=== PATIENT | female | born 1950 | race Caucasian/White ===

== ENCOUNTER → 2017-01-22 | Outpatient (CLI) | payer MEDICARE ==
[2017-01-22 11:38] LABS: BASO % 0.6 % (0.0-1.0); EOS # 0.1 K/mm3 (0.0-0.50); EOS % 2.9 % (0.0-3.0); LARGE UNSTAINED CELL # 0.1 K/mm3 (0.0-0.4); LARGE UNSTAINED CELL % 3.4 % (0.0-4.0); LYMPH # 1.3 K/mm3 (1.5-4.5); LYMPH % 28.1 % (24.0-44.0); MEAN CORPUSCULAR HEMOGLOBIN 29.7 pg (27.0-33.0); MEAN CORPUSCULAR HGB CONC 32.9 g/dl (32.0-36.5); MEAN CORPUSCULAR VOLUME 90.1 fl (80.0-96.0); MONO # 0.2 K/mm3 (0.0-0.8); MONO % 5.6 % (0.0-5.0); NEUTROPHILS # 2.4 K/mm3 (1.8-7.7); NEUTROPHILS % 59.5 % (36.0-66.0); PLATELET COUNT, AUTOMATED 204 k/mm3 (150-450); RED CELL DISTRIBUTION WIDTH 13.1 % (11.5-14.5); WHITE BLOOD COUNT 4.1 K/mm3 (4.0-10.0)
[2017-01-22 12:11] LABS: ALBUMIN/GLOBULIN RATIO 1.25 (1.00-1.93); BILIRUBIN,TOTAL 0.4 MG/DL (0.2-1.0); CALCIUM LEVEL 8.9 MG/DL (8.8-10.2); CREATININE FOR GFR 1.02 MG/DL (0.55-1.02); FREE T4 0.96 NG/DL (0.76-1.46); GLOMERULAR FILTRATION RATE 57.9 (>45); POTASSIUM SERUM 4.8 MEQ/L (3.5-5.1); TOTAL PROTEIN 7.2 GM/DL (6.4-8.2)
== END ==
LOC: M WUC 09:04
PROVIDERS: ATTEND Family Medicine
DX: E03.9 Hypothyroidism, unspecified (principal); E78.5 Hyperlipidemia, unspecified; N18.3 Chronic kidney disease, stage 3 (moderate); D64.9 Anemia, unspecified

== ENCOUNTER → 2017-02-19 | Outpatient (CLI) | payer MEDICARE ==
--- NOTE | 2017-02-19 14:15 | REPMRS ---
Patient History The patient states she had a clinical breast exam in 02/2017. Patient is postmenopausal. Family history of breast cancer in maternal aunt at age 50 or over, ovarian cancer in paternal aunt at age 50 or over, and ovarian cancer in maternal grandmother. Took estrogen for 27 years 6 months. Digital Woman Screen Mammo: February 19, 2017 - Exam #: [id number] Bilateral CC and MLO view(s) were taken. Technologist: Berta Keita, Technologist Prior study comparison: February 17, 2016, digital woman screen mammo performed at [facility]. February 15, 2015, digital woman screen mammo performed at [facility]. February 15, 2014, digital woman screen mammo performed at [facility]. FINDINGS: There are scattered fibroglandular densities. There has been no change in the appearance of the mammogram from the prior studies. There is a mild amount of scattered fibroglandular density which is fairly symmetric. There is no interval development of dominant mass, architectural distortion, or clustered microcalcification suggestive of malignancy. ASSESSMENT: BI-RADS/ACR category 1 mammogram. Negative. Recommendation Routine screening mammogram in 1 year (for women over age 40). This mammogram was interpreted with the aid of an FDA-approved computer-aided dectection system. Electronically Signed By: Leonel Valdez MD 02/19/17 [id number]
== END ==
LOC: M WHC 13:05
PROVIDERS: ATTEND Nurse Practitioner Family
DX: Z12.31 Encounter for screening mammogram for malignant neoplasm of breast (principal); Z78.0 Asymptomatic menopausal state; Z80.41 Family history of malignant neoplasm of ovary

== ENCOUNTER → 2017-07-30 | Outpatient (CLI) | payer MEDICARE ==
[2017-07-30 12:33] LABS: BASO % 0.5 % (0.0-1.0); EOS # 0.1 K/mm3 (0.0-0.50); EOS % 1.8 % (0.0-3.0); LARGE UNSTAINED CELL # 0.1 K/mm3 (0.0-0.4); LARGE UNSTAINED CELL % 3.4 % (0.0-4.0); LYMPH # 1.3 K/mm3 (1.5-4.5); LYMPH % 31.3 % (24.0-44.0); MEAN CORPUSCULAR HEMOGLOBIN 29.2 pg (27.0-33.0); MEAN CORPUSCULAR HGB CONC 32.6 g/dl (32.0-36.5); MEAN CORPUSCULAR VOLUME 89.5 fl (80.0-96.0); MONO # 0.2 K/mm3 (0.0-0.8); MONO % 4.7 % (0.0-5.0); NEUTROPHILS # 2.4 K/mm3 (1.8-7.7); NEUTROPHILS % 58.3 % (36.0-66.0); PLATELET COUNT, AUTOMATED 216 k/mm3 (150-450); RED CELL DISTRIBUTION WIDTH 13.4 % (11.5-14.5); WHITE BLOOD COUNT 4.2 K/mm3 (4.0-10.0)
[2017-07-30 12:57] LABS: ALBUMIN 3.6 GM/DL (3.2-5.2); ALBUMIN/GLOBULIN RATIO 1.16 (1.00-1.93); ALKALINE PHOSPHATASE 95 U/L (45-117); ALT/SGPT 23 U/L (12-78); ANION GAP 8 MEQ/L (8-16); AST/SGOT 18 U/L (15-37); BILIRUBIN,TOTAL 0.3 MG/DL (0.2-1.0); BLOOD UREA NITROGEN 15 MG/DL (7-18); CALCIUM LEVEL 8.6 MG/DL (8.8-10.2); CARBON DIOXIDE LEVEL 28 MEQ/L (21-32); CHLORIDE LEVEL 107 MEQ/L (98-107); CHOLESTEROL LEVEL 210 MG/DL (<200); CREATININE FOR GFR 0.94 MG/DL (0.55-1.02); GLOMERULAR FILTRATION RATE > 60.0 (>45); GLUCOSE, FASTING 78 MG/DL (80-110); POTASSIUM SERUM 4.4 MEQ/L (3.5-5.1); SODIUM LEVEL 143 MEQ/L (136-145); TOTAL PROTEIN 6.7 GM/DL (6.4-8.2); TRIGLYCERIDES LEVEL 103 MG/DL (<150)
== END ==
LOC: M WUC 09:03
PROVIDERS: ATTEND Family Medicine
DX: D64.9 Anemia, unspecified (principal); E78.5 Hyperlipidemia, unspecified; E55.9 Vitamin D deficiency, unspecified; E03.8 Other specified hypothyroidism

== ENCOUNTER → 2017-08-08 | Outpatient (CLI) | payer MEDICARE ==
--- NOTE | 2017-08-08 18:33 | REP ---
Lumbar spine series: Five views. History: Right leg radiculopathy. Findings: Lumbar vertebral body heights are preserved. There is fairly advanced discogenic spurring at the anterior aspect of the distal thoracic spine. Early degenerative disc changes are seen at L1-2, L3-4, L4-5 and moderate disc narrowing and sclerosis is seen at L5-S1. There is no evidence of spondylolysis or spondylolisthesis. There is osteoarthritic facet hypertrophy and sclerosis bilaterally at L5-S1 and to some degree at L4-5. No bony destructive lesion is seen. Sacrum and SI joints are intact. Psoas margins are symmetric. Impression: Degenerative disc disease most pronounced at L5-S1 in the lumbar spine, but also present in the lower thoracic spine. Osteoarthritic facet changes are noted at L-5 and L5-S1 in the lumbar spine. No acute bony abnormality. Signed by Jeanmarie Valdez MD 08/09/2017 08:09 A
== END ==
LOC: M WUC 13:46
PROVIDERS: ATTEND Family Medicine
DX: M51.37 Other intervertebral disc degeneration, lumbosacral region (principal); M51.34 Other intervertebral disc degeneration, thoracic region; M47.27 Other spondylosis with radiculopathy, lumbosacral region

== ENCOUNTER → 2018-01-28 | Outpatient (CLI) | payer MEDICARE ==
[2018-01-28 12:20] LABS: ALBUMIN/GLOBULIN RATIO 1.25 (1.00-1.93); ALKALINE PHOSPHATASE 86 U/L (45-117); ALT/SGPT 19 U/L (12-78); ANION GAP 6 MEQ/L (8-16); AST/SGOT 15 U/L (7-37); BILIRUBIN,TOTAL 0.4 MG/DL (0.2-1.0); BLOOD UREA NITROGEN 22 MG/DL (7-18); CARBON DIOXIDE LEVEL 29 MEQ/L (21-32); CHLORIDE LEVEL 108 MEQ/L (98-107); CHOLESTEROL LEVEL 255 MG/DL (<200); CHOLESTEROL RISK RATIO 2.405 (<5); CREATININE FOR GFR 1.05 MG/DL (0.55-1.30); ESTIMATED AVERAGE GLUCOSE 108 MG/DL (60-110); GLOMERULAR FILTRATION RATE 55.8 (>45); GLUCOSE, FASTING 82 MG/DL (70-100); HDL CHOLESTEROL 106 MG/DL (>40); HEMOGLOBIN A1c 5.4 %; NON-HDL-C 149 MG/DL; POTASSIUM SERUM 4.8 MEQ/L (3.5-5.1); SODIUM LEVEL 143 MEQ/L (136-145); TOTAL PROTEIN 7.2 GM/DL (6.4-8.2); TRIGLYCERIDES LEVEL 85 MG/DL (<150)
== END ==
LOC: M WUC 09:20
DX: N18.3 Chronic kidney disease, stage 3 (moderate) (principal); E78.5 Hyperlipidemia, unspecified; E03.9 Hypothyroidism, unspecified; Z79.899 Other long term (current) drug therapy
CPT/HCPCS: 84443

== ENCOUNTER → 2018-02-19 | Outpatient (REF) | payer MEDICARE ==
[2018-02-19 18:42] LABS: WBC, URINE TNTC /hpf (0-3)
[2018-02-19 18:45] LABS: BACTERIA, URINE MOD AMOUNT; HYALINE CAST, URINE NONE SEEN /lpf (0-1); MICROSCOPIC EXAM PERFORMED; SQUAMOUS EPITHELIAL CELL URINE SMALL AMOUNT /hpf (SMALL AMT)
== END ==
LOC: M LAB REF 16:26
DX: N39.0 Urinary tract infection, site not specified (principal)
CPT/HCPCS: 81015

== ENCOUNTER → 2018-02-27 | Outpatient (CLI) | payer MEDICARE | LOC: M WHC 12:56 | DX: Z01.419 Encounter for gynecological examination (general) (routine) without abnormal findings (principal); Z12.31 Encounter for screening mammogram for malignant neoplasm of breast; Z78.0 Asymptomatic menopausal state; Z92.23 Personal history of estrogen therapy; M81.8 Other osteoporosis without current pathological fracture; Z79.899 Other long term (current) drug therapy; Z12.12 Encounter for screening for malignant neoplasm of rectum | CPT/HCPCS: 77067 ==

== ENCOUNTER → 2018-03-18 | Outpatient (REF) | payer MEDICARE | LOC: M LAB REF 11:57 | DX: N39.0 Urinary tract infection, site not specified (principal) | CPT/HCPCS: 87086 ==

== ENCOUNTER 2018-06-13 03:22 | Emergency (ER) | payer MEDICARE ==
[2018-06-13 04:39] LABS: APPEARANCE, URINE HAZY (CLEAR); BACTERIA, URINE AUTO 2+ (NEGATIVE); BILIRUBIN, URINE AUTO NEGATIVE (NEGATIVE); BLOOD, URINE BLOOD NEGATIVE (NEGATIVE); COLOR, URINE YELLOW (YELLOW); GLUCOSE, URINE (UA) AUTO NEGATIVE (NEGATIVE); KETONE, URINE AUTO NEGATIVE (NEGATIVE); LEUKOCYTE ESTERASE, URINE AUTO TRACE (NEGATIVE); MUCUS, URINE SMALL (NEGATIVE); NITRITE, URINE AUTO NEGATIVE (NEGATIVE); PROTEIN, URINE AUTO NEGATIVE (NEGATIVE); RBC, URINE AUTO 2 /HPF (0-3); SPECIFIC GRAVITY URINE AUTO 1.017 (1.002-1.035); SQUAMOUS EPITHELIAL CELL UR AU 0 /HPF (0-6); UROBILINOGEN, URINE AUTO 0.2 mg/dL (0.0-2.0); WBC, URINE AUTO 9 /HPF (0-3)
[2018-06-13 04:40] LABS: BASO % 0.4 % (0.0-1.0); EOS % 0.5 % (0.0-3.0); HEMATOCRIT 37.5 % (36.0-47.0); HEMOGLOBIN 12.3 g/dl (12.0-15.5); IMMATURE GRANULOCYTE % 0.5 % (0-3.0); LYMPH # 1.1 10^3/uL (1.5-4.5); LYMPH % 13.6 % (24.0-44.0); MEAN CORPUSCULAR HEMOGLOBIN 29.1 pg (27.0-33.0); MEAN CORPUSCULAR HGB CONC 32.8 g/dl (32.0-36.5); MEAN CORPUSCULAR VOLUME 88.9 fl (80.0-96.0); MONO # 0.4 10^3/uL (0.0-0.8); MONO % 5.3 % (0.0-5.0); NEUTROPHILS # 6.3 10^3/uL (1.8-7.7); NEUTROPHILS % 79.7 % (36.0-66.0); PLATELET COUNT, AUTOMATED 202 10^3/uL (150-450); RED BLOOD COUNT 4.22 10^6/uL (4.00-5.40); RED CELL DISTRIBUTION WIDTH 13.3 % (11.5-14.5); WHITE BLOOD COUNT 7.9 10^3/uL (4.0-10.0)
[2018-06-13] MEDS: NS 1,000 ML IV (04:43)
[2018-06-13] MEDS: MORPHINE 4 MG/ML 1ML VIAL/SYRINGE (J2270) IV (04:45)
[2018-06-13] MEDS: KETOROLAC 30 MG/ML VIAL (J1885) IV (04:48)
[2018-06-13 05:02] LABS: ALBUMIN 3.7 GM/DL (3.2-5.2); ALKALINE PHOSPHATASE 87 U/L (45-117); ALT/SGPT 21 U/L (12-78); ANION GAP 8 MEQ/L (8-16); AST/SGOT 14 U/L (7-37); BILIRUBIN,DIRECT < 0.1 MG/DL (0.0-0.2); BILIRUBIN,TOTAL 0.3 MG/DL (0.2-1.0); BLOOD UREA NITROGEN 25 MG/DL (7-18); CALCIUM LEVEL 8.5 MG/DL (8.8-10.2); CARBON DIOXIDE LEVEL 25 MEQ/L (21-32); CHLORIDE LEVEL 109 MEQ/L (98-107); CREATININE FOR GFR 1.06 MG/DL (0.55-1.30); GLUCOSE, FASTING 92 MG/DL (70-100); LIPASE 120 U/L (73-393); POTASSIUM SERUM 4.2 MEQ/L (3.5-5.1); SODIUM LEVEL 142 MEQ/L (136-145); TOTAL PROTEIN 7.4 GM/DL (6.4-8.2)
[2018-06-13] MEDS: cefTRIAXone SOD 1 GM in D5W MINI-BAG PLUS 50 ML IV (05:08)
[2018-06-13] MEDS: NORCO 5/325MG TABLET (BULK FOR ED) PO (06:26)
== END 2018-06-13 06:28 | disposition home or self-care (01) ==
LOC: M ED 03:22
DX: N39.0 Urinary tract infection, site not specified (principal); N23 Unspecified renal colic; E11.9 Type 2 diabetes mellitus without complications; K21.9 Gastro-esophageal reflux disease without esophagitis; E03.9 Hypothyroidism, unspecified; K59.00 Constipation, unspecified; K31.84 Gastroparesis; Z79.84 Long term (current) use of oral hypoglycemic drugs; Z79.899 Other long term (current) drug therapy; Z88.8 Allergy status to other drugs, medicaments and biological substances
CPT/HCPCS: J2270

== ENCOUNTER → 2018-12-11 | Outpatient (REF) | payer MEDICARE ==
[~2018-12-11] MED LIST: BUPR300T34 PO; CIPR-249 PO; LEVO50TA5 PO; METF750T PO; SERT-138 PO; ZANT300T9 PO
[2018-12-11 14:14] LABS: INFLUENZA A AMPLIFICATION NEGATIVE (NEGATIVE); INFLUENZA B AMPLIFICATION NEGATIVE (NEGATIVE)
== END ==
LOC: M LAB REF 12:01
PROVIDERS: ATTEND Nurse Practitioner Family
DX: J01.90 Acute sinusitis, unspecified (principal)

== ENCOUNTER → 2019-02-02 | Outpatient (CLI) | payer MEDICARE ==
[2019-02-02 09:58] LABS: BASO % 0.8 % (0.0-1.0); EOS # 0.1 10^3/uL (0.0-0.50); EOS % 1.6 % (0.0-3.0); HEMATOCRIT 38.5 % (36.0-47.0); HEMOGLOBIN 12.1 g/dl (12.0-15.5); LYMPH # 1.3 10^3/uL (1.5-4.5); MEAN CORPUSCULAR HEMOGLOBIN 27.6 pg (27.0-33.0); MEAN CORPUSCULAR HGB CONC 31.4 g/dl (32.0-36.5); MEAN CORPUSCULAR VOLUME 87.9 fl (80.0-96.0); MONO # 0.4 10^3/uL (0.0-0.8); NEUTROPHILS % 53.3 % (36.0-66.0); PLATELET COUNT, AUTOMATED 213 10^3/uL (150-450); RED BLOOD COUNT 4.38 10^6/uL (4.00-5.40); WHITE BLOOD COUNT 3.7 10^3/uL (4.0-10.0)
[2019-02-02 10:30] LABS: ALBUMIN 3.7 GM/DL (3.2-5.2); ALT/SGPT 21 U/L (12-78); BILIRUBIN,TOTAL 0.4 MG/DL (0.2-1.0); BLOOD UREA NITROGEN 22 MG/DL (7-18); CALCIUM LEVEL 8.8 MG/DL (8.8-10.2); CARBON DIOXIDE LEVEL 30 MEQ/L (21-32); CHLORIDE LEVEL 106 MEQ/L (98-107); CHOLESTEROL LEVEL 233 MG/DL (<200); CHOLESTEROL RISK RATIO 2.177 (<5); CREATININE FOR GFR 0.96 MG/DL (0.55-1.30); FREE THYROXINE INDEX 2.5 % (1.3-4.8); GLOMERULAR FILTRATION RATE > 60.0 (>45); GLUCOSE, FASTING 101 MG/DL (70-100); HDL CHOLESTEROL 107 MG/DL (>40); LDL CHOLESTEROL 107 MG/DL (<100); NON-HDL-C 126 MG/DL; POTASSIUM SERUM 4.5 MEQ/L (3.5-5.1); SODIUM LEVEL 141 MEQ/L (136-145); T UPTAKE 32 % (30-39); THYROXINE (T4) 7.7 UG/DL (4.5-12.0); TOTAL PROTEIN 6.9 GM/DL (6.4-8.2); TRIGLYCERIDES LEVEL 93 MG/DL (<150)
== END ==
LOC: M WUC 08:39
PROVIDERS: ATTEND Family Medicine
DX: E78.5 Hyperlipidemia, unspecified (principal); R93.2 Abnormal findings on diagnostic imaging of liver and biliary tract; E03.9 Hypothyroidism, unspecified

== ENCOUNTER → 2019-02-04 | Outpatient (CLI) | payer MEDICARE ==
--- NOTE | 2019-02-05 15:39 | REP ---
MRI RIGHT KNEE: TECHNIQUE: Axial proton density fat saturation, sagittal proton density T2 STIR, water excitation, coronal proton density, proton density fat saturation. There is an extensive complex tear of the posterior horn of the medial meniscus also involving the body of the medial meniscus. There appears to be a small oblique tear of the undersurface of the posterior horn of the lateral meniscus. The anterior horn of the lateral meniscus appears frayed. The cruciate and collateral ligaments are intact. The extensor mechanism is intact. There is moderate diffuse chondromalacia of the patella both medially and laterally with subchondral marrow edema, more so involving the lateral patellar facet. There is moderately severe diffuse chondromalacia involving the medial femoral condyle and tibial plateau with moderate subchondral marrow edema in the medial tibial plateau. There is a more mild degree of diffuse chondromalacia involving the lateral femoral condyle and tibial plateau. There is a moderate joint effusion. There is a suprapatellar plica. There is mild fluid along the posterior margin of the proximal tibiofibular articulation. No popliteal cyst is seen. Medial and lateral patellar retinacula are intact. There is a cluster of three joint bodies at the posterior margin of the central medial joint, largest measuring 1.6 cm in maximum diameter. IMPRESSION: Complex tear body and posterior horn medial meniscus. There appears to be an oblique tear along the undersurface of the posterior horn of the lateral meniscus. The anterior horn of the lateral meniscus appears frayed. Cruciate and collateral ligaments intact. Global chondromalacia most significantly involving the medial femoral condyle and tibial plateau with subchondral marrow edema in the medial tibial plateau. There is also moderate diffuse chondromalacia of the patella with subchondral marrow edema particularly in the lateral patellar facet. Moderate joint effusion. Suprapatellar plica. There is a cluster of three joint bodies at the posterior margin of the central medial joint, largest measuring 1.6 cm in maximum diameter. Electronically Signed by Hemanth Rueda MD 02/05/2019 04:10 P
== END ==
LOC: M RAD 07:25
PROVIDERS: ATTEND Orthopaedic Surgery
DX: M17.11 Unilateral primary osteoarthritis, right knee (principal); S83.231A Complex tear of medial meniscus, current injury, right knee, initial encounter; X58.XXXA Exposure to other specified factors, initial encounter; Y92.9 Unspecified place or not applicable; M22.41 Chondromalacia patellae, right knee

== ENCOUNTER → 2019-03-23 | Outpatient (CLI) | payer MEDICARE ==
[~2019-03-23] MED LIST changes: +GASTROGRAFIN SOLUTION 30ML (Q9963) As Ordered ONE
--- NOTE | 2019-03-23 14:17 | REP ---
REASON: Followup liver lesion. COMPARISON: 06/13/2018 The lack of intravenous contrast decreases the sensitivity of the exam. The lung bases are clear and unchanged. Limited evaluation of the liver again shows a low density lesion in the posterior segment of the right lobe which today measures 4.6 x 3.4 x 3.7 cm essentially unchanged from the prior exam. Once again, it has low density Hounsfield unit readings near water, status quo. No new hepatic lesions have developed. Limited evaluation of the gallbladder, spleen, pancreas, adrenal glands and kidneys show no gross abnormalities or significant change from the prior exam. Limited evaluation of the bowel loops and their mesenteries show no gross abnormalities or significant changes from the prior exam. Limited evaluation of the abdominal aorta and para-aortic regions show no gross abnormalities or significant changes from the prior exam. The osseous structures are stable and intact. IMPRESSION: No significant change from the prior exam. Findings as described above. Electronically Signed by Allan Oviedo DO 03/23/2019 04:36 P
== END ==
LOC: M RAD 11:51
PROVIDERS: ATTEND Family Medicine
DX: K76.89 Other specified diseases of liver (principal)
CPT/HCPCS: 74150; Q9963

== ENCOUNTER → 2019-04-21 | Outpatient (CLI) | payer MEDICARE ==
[~2019-04-21] MED LIST changes: -GASTROGRAFIN SOLUTION 30ML (Q9963) As Ordered ONE
--- NOTE | 2019-04-21 16:07 | REPMRS ---
Patient History The patient states she had a clinical breast exam in 04/2019. Family history of ovarian cancer in maternal grandmother, breast cancer at age 50 or over in maternal aunt, ovarian cancer at age 50 or over in paternal aunt. Took estrogen for 27 years 6 months. 3D TOMOSYNTHESIS WAS PERFORMED. Digital Woman Screen Mammo: April 21, 2019 - Exam #: [id number] Bilateral CC and MLO view(s) were taken. Technologist: Rossy Kirkpatrick, Technologist Prior study comparison: February 27, 2018, digital woman screen mammo performed at [facility]. February 19, 2017, digital woman screen mammo performed at [facility]. FINDINGS: There are scattered fibroglandular densities. There has been no change in the appearance of the mammogram from the prior studies. There is a mild amount of residual fibroglandular tissue which is fairly symmetric. There is no interval development of dominant mass, architectural distortion, or clustered microcalcification suggestive of malignancy. Assessment: BI-RADS/ACR category 1 mammogram. Negative Mammogram. Recommendation Routine screening mammogram in 1 year (for women over age 40). This mammogram was interpreted with the aid of an FDA-approved computer-aided dectection system. Electronically Signed By: Hemanth Rueda MD 04/21/19 [id number]
== END ==
LOC: M WHC 13:14
PROVIDERS: ATTEND Nurse Practitioner Family
DX: Z12.31 Encounter for screening mammogram for malignant neoplasm of breast (principal); Z80.3 Family history of malignant neoplasm of breast; Z92.23 Personal history of estrogen therapy

== ENCOUNTER → 2019-08-16 | Outpatient (CLI) | payer MEDICARE ==
[~2019-08-16] MED LIST changes: -METF750T PO; +METF750T36 PO
--- NOTE | 2019-08-17 08:15 | REP ---
CHEST PA AND LATERAL: 08/16/2019. Comparison: AP portable chest 10/07/2014. Clinical history: Cough. Findings: Lungs are well inflated. There is no effusion, lateral pleural thickening, apical scar, or pneumothorax. There is no infiltrate, atelectasis or mass. There are a few cuffed bronchi in the perihilar regions that might reflect a reactive airway disease or bronchitis. The heart, mediastinal and hilar contours are normal. The aorta is mildly tortuous but normal for age. Airway intact. Bony thorax shows marginal osteophytes throughout without compression deformity of focal lesion. No free air under the diaphragm. Impression: 1. Perihilar changes of bronchitis or reactive airway disease with no dense consolidation, pleural effusion or other acute finding. Electronically Signed by Reginald Holder MD 08/17/2019 10:04 A
== END ==
LOC: M WUC 09:59
PROVIDERS: ATTEND Physician Assistant
DX: R05 Cough (principal)

== ENCOUNTER → 2019-08-20 | Outpatient (REF) | payer MEDICARE | LOC: M LAB REF 16:04 | PROVIDERS: ATTEND Family Medicine | DX: R05 Cough (principal) ==

== ENCOUNTER → 2019-08-26 | Outpatient (CLI) | payer MEDICARE ==
--- NOTE | 2019-08-26 12:13 | REP ---
PA and lateral chest: Comparison is 08/16/2019. The lung leo are clear. The cardiac size is normal. The roma, mediastinum, and skeletal structures are unremarkable. Impression: Negative PA and lateral chest. Electronically Signed by Hemanth Higuera MD 08/26/2019 12:05 P
== END ==
LOC: M WUC 09:39
PROVIDERS: ATTEND Family Medicine
DX: R05 Cough (principal)

== ENCOUNTER → 2019-12-21 | Outpatient (CLI) | payer MEDICARE ==
[~2019-12-21] MED LIST changes: -BUPR300T34 PO; +BUPR300T92 PO
[2019-12-21 10:47] LABS: HEMOGLOBIN 12.4 g/dl (12.0-15.5); MEAN CORPUSCULAR HEMOGLOBIN 27.1 pg (27.0-33.0); MEAN CORPUSCULAR HGB CONC 30.2 g/dl (32.0-36.5); MEAN CORPUSCULAR VOLUME 89.5 fl (80.0-96.0); PLATELET COUNT, AUTOMATED 211 10^3/uL (150-450); RED BLOOD COUNT 4.58 10^6/uL (4.00-5.40); WHITE BLOOD COUNT 4.5 10^3/uL (4.0-10.0)
[2019-12-21 11:02] LABS: INR 0.98; PROTHROMBIN TIME 12.7 SECONDS (11.8-14.0)
[2019-12-21 11:06] LABS: ERYTHROCYTE SEDIMENTATION RATE 20 mm/hr (0-30)
--- NOTE | 2019-12-21 11:17 | REP ---
PA and lateral chest: Comparisons are 08/26/2019, and 08/16/2019 gauge, 10/07/2014 and 12/21/2009. There is a 14 mm faintly visible nodule peripherally in the right mid lung, not present on the comparison studies. Therefore, I would recommend chest CT for further evaluation of this finding. The lung leo otherwise clear. Cardiac size is normal. The roma, mediastinum, skeletal structures are unremarkable. Impression: New faintly visible 14 mm nodular density in the right lung, not present on prior studies. Chest CT is recommended for further evaluation. There are no acute cardiopulmonary findings. Electronically Signed by Hemanth Higuera MD 12/21/2019 11:08 A
[2019-12-21 11:18] LABS: ALBUMIN 3.9 GM/DL (3.2-5.2); ALT/SGPT 22 U/L (12-78); BILIRUBIN,TOTAL 0.7 MG/DL (0.2-1.0); BLOOD UREA NITROGEN 30 MG/DL (7-18); CALCIUM LEVEL 9.1 MG/DL (8.8-10.2); CARBON DIOXIDE LEVEL 32 MEQ/L (21-32); CHLORIDE LEVEL 106 MEQ/L (98-107); CREATININE FOR GFR 0.92 MG/DL (0.55-1.30); GLOMERULAR FILTRATION RATE > 60.0 (>45); GLUCOSE, FASTING 80 MG/DL (70-100); POTASSIUM SERUM 4.6 MEQ/L (3.5-5.1); SODIUM LEVEL 141 MEQ/L (136-145); TOTAL PROTEIN 7.2 GM/DL (6.4-8.2)
--- NOTE | 2019-12-21 20:53 | ECGEPIP ---
[facility] Test Date: 2019-12-21 Pat Name: OMI SMITH Department: Room: - Gender: Female Accordion Tuner: KATHERYN : 1950 Requested By: Claudy Melendez @ [facility] Order Number: [id number] Reading MD: Tiara Marin Measurements Intervals [place] Rate: 65 P: 37 KS: 171 QRS: 1 QRSD: 99 T: 30 QT: 409 QTc: 425 Interpretive Statements SINUS RHYTHM MINIMAL ST DEPRESSION BORDERLINE ECG NO PRIOR Electronically Signed on 12-21-2019 20:53:24 EST by Tiara Marin
== END ==
LOC: M LAB 09:51
PROVIDERS: ATTEND Orthopaedic Surgery
DX: Z01.818 Encounter for other preprocedural examination (principal); M17.11 Unilateral primary osteoarthritis, right knee; K21.9 Gastro-esophageal reflux disease without esophagitis; E07.9 Disorder of thyroid, unspecified; Z88.1 Allergy status to other antibiotic agents; Z88.8 Allergy status to other drugs, medicaments and biological substances

== ENCOUNTER → 2019-12-29 | Outpatient (CLI) | payer MEDICARE ==
[~2019-12-29] MED LIST changes: +ACET25TA12 PO; +CRAN450T4 PO; +D 202000 PO; +ESTR62CR; +HM C500T3 PO; +ISOVUE-370 76% 100ML VIAL (Q9967) As Ordered ONE; +MULTCAP PO; +PANT40TA3 PO; +REFR0.5D8 OP; +TYLE650T38 PO; +VITA1CHW7 PO; +VITA500C24 PO
--- NOTE | 2019-12-29 10:06 | REP ---
Clinical: Follow up abnormal chest chest x-ray. Technique: Axial contrast enhanced images from the thoracic inlet to the upper abdomen with coronal and sagittal re-formations using 75 ml Isovue 370 intravenous contrast material. Correlation: Chest x-ray dated 12/21/2019. Findings: The abnormal 14 mm density in the periphery of the right mid lung zone corresponds to a nondisplaced healed fracture involving the anterior margin of the right fifth rib with dense calcification. The bilateral lung leo are well-aerated and clear. No pulmonary parenchymal consolidation, nodule or mass lesion. No pleural effusion. No pneumothorax. Again bronchial tree is patent. The mediastinum demonstrates relatively normal thoracic aorta, pulmonary vasculature and heart/pericardium. Small hiatal hernia noted at the gastroesophageal junction. Limited upper abdomen demonstrates normal bilateral adrenal glands and stable 4.7 cm hepatic cyst. Impression: 1. Abnormal density on recent chest x-ray corresponds to sclerotic focus at the healed right 5th rib fracture. 2. No significant mediastinal or pleuroparenchymal process appreciated. Electronically Signed by Yohan Garduno MD 12/29/2019 09:58 A
== END ==
LOC: M RAD 08:49
PROVIDERS: ATTEND Family Medicine
DX: R91.8 Other nonspecific abnormal finding of lung field (principal)
CPT/HCPCS: 71260; Q9967

== ENCOUNTER 2020-01-13 06:20 | Inpatient (IN) | payer MEDICARE ==
--- NOTE | 2020-01-06 10:12 | HPE ---
DATE OF ADMISSION: 01/13/2020 HISTORY OF PRESENT ILLNESS: This is a pleasant 69-year-old female with continuing symptomatic right knee osteoarthritis. She has consented for a right total knee arthroplasty per Dr. Claudy Melendez. Medical optimization per Dr. Torres. X-rays are consistent with advanced osteoarthritis. ALLERGIES: ATENOLOL, SCOPOLAMINE. MEDICATION LIST: Includes: - Tylenol with Codeine #3 300/30 mg - bupropion hydrochloride XL 300 mg - Synthroid 50 mcg - metformin HCl ER 750 mg - Premarin 0.625 mg/gm - ranitidine HCl 300 mg - Zoloft 100 mg - AZO cranberry 250/30 mg - Excedrin Migraine 250/250/65 mg - One A Day VitaCraves Sour Gummies - Tylenol 8-hour Arthritis Pain 650 mg - Refresh Tears 0.5% - vitamin D3 2000 units MEDICAL PROBLEM LIST: Includes: Right knee osteoarthritis. Gastroesophageal reflux disease. Depression. Back problems. Hypothyroidism. Mitral valve prolapse. Kidney stone 05/2018. Diverticulosis 01/2009 noted during colonoscopy. Thyroid disease, controlled with medications. Cataracts 03/2018 noted during annual eye examination. Hiatal hernia controlled with medications. Incontinence. Osteoarthritis 02/2019. SURGICAL HISTORY Bunionectomy 2012, left foot. Hip arthroscopy 2001 torn labrum. Knee arthroscopy 2018, 2005 on the left; 2006 on the right. Total hysterectomy 1982 oophorectomy. Tonsillectomy 1997. Tubal ligation in 1976. Colonoscopy 2008. Hysterectomy 1980. Tubal ligation. Partial hysterectomy. Tonsillectomy. Left ankle open reduction internal fixation. SOCIAL HISTORY: She is not working. She never smoked. Denies ethanol intake or illicit drugs. FAMILY HISTORY: Noncontributory. REVIEW OF SYSTEMS: Denies chest pain, shortness of breath, dyspnea on exertion, fever, chills, malaise, upper respiratory or urinary tract symptoms. Dr. Melendez made a note that her chest x-ray reading indicated a 14-mm nodular density in the right lung and chest CT was recommended. He would prefer to defer that to the primary care, Dr. Fidencio Torres. Chest x-ray was obtained by [facility] service date 12/21/2019 which showed new faintly visible 14-mm nodular density in the right lung, not present on prior studies. CT was recommended and obtained via [facility] on 12/29/2019. There was an abnormal density on recent chest x-ray, corresponds to sclerotic focus at the healed right 5th rib fracture. No significant mediastinal or pleural parenchymal process appreciated as read by Dr. Garduno. Electrocardiogram (EKG): Sinus rhythm, minimal ST depression, borderline electrocardiogram (ECG) as read by Dr. Marin. LABORATORY RESULTS: By [facility] service date 12/21/2019. BUN 30, anion gap 3, MCHC 30.2. Otherwise unremarkable. Vital signs: Height 64.25, weight 188.7, temperature 98.5, blood pressure (BP) 126/72, pulse 72, respiration 12. This is a pleasant, well-developed, overweight female in no acute distress. Alert and times three. Mood and affect are appropriate. Bilateral lower extremities were inspected. Skin is intact. Benign noninfectious-looking. Right knee: Positive joint line tenderness and crepitance about the knee through flexion and extension. Bowel: Soft, nontender, sounds times four. Chest rises symmetrically. Regular rate and rhythm. Lungs: Clear to auscultation. Neck: Supple. Negative jugular venous distention (JVD) or bruits. Normocephalic. IMPRESSION: 1. Symptomatic right knee osteoarthritis. 2. The patient consented for a right total knee arthroplasty per Dr. Claudy Melendez. 3. Medical optimization per Dr. Fidencio Torres on 12/30/2019, which we are awaiting clearance note. 4. On-call to operating room (OR), 2 grams intravenous (IV) Kefzol in OR. 5. Sequential compression device (SCD) and thromboembolic deterrents (TEDs) in OR. 6. The patient notes previous post spinal blood patch and wants to have general anesthesia. MTDD
[~2020-01-13] VITALS: Ht 165.1 cm; Wt 87.7 kg
[2020-01-13] VITALS (7 sets, daily range): BP systolic 126–142; BP diastolic 65–76
[~2020-01-13 06:20] MED LIST changes: -ISOVUE-370 76% 100ML VIAL (Q9967) As Ordered ONE; +LIDOCAINE 1% MDV 20ML VIAL SQ PRN; +LR 1,000 ML IV ONE; +MIDAZOLAM INJ 2 MG/2 ML VIAL (J2250) IV SCH; +ceFAZolin SOD 2 GM in IV 1 EA IV ONE; +fentaNYL 100 MCG/2 ML INJECTION (J3010) IV SCH
[2020-01-13] MEDS ORDERED: ceFAZolin 1GM INJ (J0690 PER 500MG) As Ordered ONE (07:12)
[2020-01-13] MEDS ORDERED: TRANEXAMIC ACID 100 MG/ML 10ML VIAL As Ordered ONE (07:12)
[2020-01-13] MEDS ORDERED: EPINEPHrine INJ 1 MG/ML 1ML VIAL As Ordered ONE (07:12)
[2020-01-13] MEDS ORDERED: BUPIVACAINE LIPOSOME/PF 1.3% 20ML VIAL (13.3MG/ML)(EXPAREL)(C9290 PER1MG) As Ordered ONE (07:12)
[2020-01-13] MEDS ORDERED: propofoL 500 MG/50 ML VIAL As Ordered ONE (07:19)
[2020-01-13] MEDS ORDERED: ONDANSETRON 4MG/2ML VIAL (J2405) As Ordered ONE ×2 (07:19→09:20)
[2020-01-13] MEDS ORDERED: MIDAZOLAM INJ 2 MG/2 ML VIAL (J2250) As Ordered ONE ×2 (07:19→08:00)
[2020-01-13] MEDS ORDERED: fentaNYL 100 MCG/2 ML INJECTION (J3010) As Ordered ONE ×3 (07:19→10:59)
[2020-01-13] MEDS ORDERED: LIDOCAINE 2% INJ 100 MG/5 ML SDV (FOR ANES.) As Ordered ONE (07:19)
[2020-01-13] MEDS: MIDAZOLAM INJ 2 MG/2 ML VIAL (J2250) IV PRN ×2 (08:10→08:12)
[2020-01-13] MEDS ORDERED: fentaNYL 100 MCG/2 ML INJECTION (J3010) IV PRN (08:45)
[2020-01-13] MEDS ORDERED: HYDROmorphone HCL 2 MG/ML 1ML VIAL (J1170) As Ordered ONE (09:17)
[2020-01-13] MEDS ORDERED: propofoL 200 MG/20 ML VIAL As Ordered ONE ×2 (09:17→10:10)
[2020-01-13] MEDS ORDERED: dexameTHASONE 4 MG/ML 1ML VIAL (J1100) As Ordered ONE (09:17)
[2020-01-13] MEDS ORDERED: ROCURONIUM BROMIDE 50 MG/5 ML VIAL As Ordered ONE (09:19)
--- NOTE | 2020-01-13 09:20 | IPN ---
DATE: 01/13/2020 The patient was seen and examined. She wishes to go ahead with a right total knee arthroplasty. She understands the nature of this. The risks of bleeding, infection, damage to nerves, vessels, persistent pain, wear loosening, blood clots, medical problems, , among others. Preoperative clearance was obtained.
[2020-01-13] MEDS ORDERED: ACETAMINOPHEN 1000MG 100ML IV BTL (OFIRMEV) (J0131 PER 10MG) As Ordered ONE (09:35)
[2020-01-13] MEDS ORDERED: SUGAMMADEX SODIUM 500 MG/5 ML VIAL (BRIDION) As Ordered ONE (09:54)
[2020-01-13] MEDS ORDERED: ePHEDrine SULFATE 25 MG/5 ML(5MG/ML) SYRINGE As Ordered ONE (10:20)
[2020-01-13] MEDS: fentaNYL 100 MCG/2 ML INJECTION (J3010) IV PRN ×4 (11:00→11:20)
[2020-01-13] MEDS ORDERED: PERCOCET 5MG/325MG TAB PO PRN ×2 (11:15)
[2020-01-13] MEDS ORDERED: METOCLOPRAMIDE INJ 10MG/2ML VIAL (J2765) IV PRN (11:15)
[2020-01-13] MEDS ORDERED: ONDANSETRON 4MG/2ML VIAL (J2405) IV PRN (11:15)
[2020-01-13] MEDS ORDERED: MORPHINE 2 MG/ML 1ML VIAL (J2270) IV PRN (11:15)
[2020-01-13] MEDS ORDERED: MORPHINE 4 MG/ML 1ML VIAL/SYRINGE (J2270) IV PRN (11:15)
[2020-01-13] MEDS ORDERED: LR 1,000 ML IV SCH (11:15)
[2020-01-13] MEDS: oxyCODONE 5MG TAB PO PRN ×2 (11:29→12:00)
[2020-01-13] MEDS: HYDROMORPHONE HCL 0.5 MG/ 0.5 ML SYRINGE (J1170 PER 1) IV PRN ×4 (11:30→12:08)
[2020-01-13] MEDS ORDERED: HYDROMORPHONE HCL 0.5 MG/ 0.5 ML SYRINGE (J1170 PER 1) As Ordered ONE (11:31)
--- NOTE | 2020-01-13 11:47 | REP ---
RIGHT KNEE, TWO VIEWS: Two views right knee performed. There is a total knee prosthesis which appears to be in good position. The osseous structures are intact and well aligned. Metallic skin wong are seen anteriorly and there is scattered air in the soft tissues. Electronically Signed by Hemanth Rueda MD 01/13/2020 03:23 P
[2020-01-13] MEDS ORDERED: LIDOCAINE 1% MDV 20ML VIAL ONE (12:16)
[2020-01-13] MEDS ORDERED: EPINEPHrine INJ 1 MG/ML 1ML VIAL ONE (12:16)
[2020-01-13] MEDS ORDERED: ROPIvacaine 0.5% 30 ML INJECTION (J2795 PER 1MG) ONE (12:16)
[2020-01-13] MEDS: LR 1,000 ML IV SCH (14:11)
[2020-01-13] MEDS ORDERED: ceFAZolin SOD 2 GM in IV 1 EA IV SCH (14:30)
[2020-01-13] MEDS ORDERED: ACETAMINOPHEN TAB 650MG DOSE (2X325MG) PO PRN (15:00)
--- NOTE | 2020-01-13 15:07 | HPEPDOC ---
General Date of Admission Jan 13, 2020 at 06:20 Chief Complaint The patient is a 69-year-old female admitted with a reason for visit of Right Knee Oa. History of Present Illness Consultation report. Consultation requested by Dr Melendez Consultation for medical management of commorbidities HPI: 69 year old female admitted today to the orthopedic service for elective right knee replacement for advanced osteoarthritis. hospitalist has been consulted for the management of medical comorbidities. Her surgery was uneventful. At present she complains of pain at the surgical site right knee about 6/10 sharp aching in nature without any radiation. Home Medications Scheduled Ascorbic Acid (Vitamin C) 500 Mg Capsule, 500 MG PO DAILY, (Reported) Bupropion HCl (Bupropion Xl) 300 Mg Tab, 1 TAB PO DAILY, (Reported) Cholecalciferol (Vitamin D3) (Vitamin D3) 2,000 Unit Tablet, 2,000 UNIT PO DAILY, (Reported) Conjugated Estrogens (Premarin) 30 Gm Cream.appl, 1 DOSE 2xweek, (Reported) Cranberry Fruit Extract (Cranberry) 500 Mg Tablet, 2 TABS PO DAILY, (Reported) Levothyroxine Sodium (Levothyroxine Sodium) 50 Mcg Tab, 1.5 TAB PO DAILY, (Reported) Metformin HCl (Metformin HCl ER) 750 Mg Tab, 1 TAB PO DAILY, (Reported) Multivitamin (Multivitamins) 1 Each Capsule, 1 CAP PO DAILY, (Reported) Pantoprazole Sodium (Pantoprazole Sodium) 40 Mg Tablet.dr, 40 MG PO DAILY, (Reported) Sertraline HCl (Sertraline HCl) 100 Mg Tab, 1 TAB PO DAILY, (Reported) Scheduled PRN Acetaminophen (Tylenol 8 Hour) 650 Mg Tablet.er, 650 MG PO TIDP PRN for PAIN, (Reported) Acetaminophen/Diphenhydramine (Acetaminophen Pm Caplet) 1 Each Tablet, 2 TAB PO QHSP PRN for SLEEP, (Reported) Carboxymethylcellulose Sodium (Refresh Tears) 15 Ml Drops, 0.5 % OP TIDP PRN for dry eye, (Reported) Allergies Coded Allergies: scopolamine (Unverified Allergy, Intermediate, rash on face, 12/29/19) atenolol (Unverified Allergy, Unknown, asthmatic symptoms, 12/29/19) levofloxacin (Unverified Allergy, Unknown, 12/29/19) sulfamethoxazole (Unverified Allergy, Unknown, 12/29/19) trimethoprim (Unverified Allergy, Unknown, 12/29/19) Past Medical History Medical History DEPRESSION MITRAL VALVE PROLAPSE MIGRAINE HEADACHE ESOPHAGEAL REFLUX HIATAL HERNIA HYPERTENSION HYPOTHYROIDISM OSTEOPENIA , OSTEOARTHRITIS KIDNEY STONES Surgical History HYSTERECTOMY 1980 OOPHORECTOMY/ [facility]YA. 1982 ARTHROSCOPIC KNEE SURGERY/ RIGHT THEN LEFT TONSILLECTOMY AGE 48 ELBOW SURGERY/ ORIF 12/28 LEFT HIP ARTHTOSCOPIC/ REPAIR 03/19 COLONOSCOPY DIVERTICULUM NO PLOYPS 2006 BLADDER SURGERY / SLING --[place] 11/28 SPRAINED LEFT ANKLE/HEEL 2010 LEFT ANKLE SURGERY---THEN 2012 ANKLE SURGERY REDONE WITH BUNIONECTOMY 09/2012,08/30 ENDOSCOPY DUE TO SPASMS 2013 ANKLE SURGERY 06/2015 Social History * Smoker: Denies Alcohol: Denies Drugs: denies A-FIB/CHADSVASC A-FIB History Current/History of A-Fib/PAF?: No Review of Systems Constitutional: Denies: Chills, Fever, Night Sweats Eyes: Denies: Pain, Vision change ENT: Denies: Head Aches, Ear Pain, Dysphagia Skin: Denies: Rash, Lesions, Breakdown Pulmonary: Denies: Dyspnea, Cough Cardiovascular: Denies: Chest Pain, Palpitations, Orthopnea, Paroxysmal Noc. Dyspnea, Lt Headedness Gastrointestinal: Denies: Nausea, Vomiting, Abdominal Pain, Diarrhea Genitourinary: Denies: Dysuria, Frequency, Incontinence, Retention Hematologic: Denies: Bruising, Bleeding Excessively Musculoskeletal: Reports: Joint Pain Neurological: Denies: Weakness, Numbness, Change in speech, Confusion Physical Examination General Exam: Positive: Alert, Cooperative, No Acute Distress Eye Exam: Positive: PERRLA, Conjunctiva & lids normal, EOMI; Negative: Sclera icteric ENT Exam: Positive: Atraumatic, Mucous membr. moist/pink, Pharynx Normal Neck Exam: Positive: Supple; Negative: JVD, thyromegaly Chest Exam: Positive: Clear to auscultation, Normal air movement Heart Exam: Positive: Rate Normal, Regular Rhythm, Normal S1, Normal S2; Negative: Murmurs, Rubs Abdomen Exam: Positive: Normal bowel sounds, Soft; Negative: Tenderness, Hepatospenomegaly Extremity Exam: Positive: Normal pulses; Negative: Clubbing, Cyanosis, Edema Skin Exam: Positive: Nl turgor and temperature; Negative: Breakdown, Lesion Neuro Exam: Positive: Normal Gait, Normal Speech, Cranial Nerves 3-12 NL, Reflexes 2+ Vital Signs Vital Signs Date Time Temp Pulse Resp B/P (MAP) Pulse Ox O2 Delivery O2 Flow Rate FiO2 01/13/20 11:20 68 18 163/72 (102) 100 Non-Rebreather 10 01/13/20 10:50 97.5 Laboratory Data Labs 24H Laboratory Tests 2 01/13/20 07:57: Bedside Glucose (Misc Panel) 90 Assessment/Plan 69 year old female admitted today to the orthopedic service for elective right knee replacement for advanced osteoarthritis. hospitalist has been consulted for the management of medical comorbidities. Right total knee replacement pain control and dvt prophylaxis as per orthopedics PT/OT Depression sertraline and bupropion continued. GERD/Hiatal hernia PPI Hypothyroid cont synthroid. insulin resistance patient on metformin will hold in hospital Plan / VTE VTE Prophylaxis Ordered?: Yes JOB SCHWARZ MD Jan 13, 2020 11:37
[2020-01-13] MEDS: ceFAZolin SOD 2 GM in IV 1 EA IV SCH ×2 (15:31→23:40)
[2020-01-13] MEDS: ONDANSETRON 4MG/2ML VIAL (J2405) IV PRN (18:48)
[2020-01-14 02:08] VITALS: BP 128/72
[2020-01-14] MEDS: LR 1,000 ML IV SCH (02:34)
[2020-01-14] MEDS: LEVOTHYROXINE 75MCG TABLET (0.075MG) PO SCH (05:46)
[2020-01-14 06:39] VITALS: BP 126/74
[2020-01-14] MEDS ORDERED: PERCOCET 5MG/325MG TAB PO PRN (06:45)
[2020-01-14] MEDS ORDERED: XARE10TA PO (06:47)
[2020-01-14] MEDS ORDERED: PERC5TAB12 PO (06:47)
[2020-01-14] MEDS: PERCOCET 5MG/325MG TAB PO PRN ×3 (07:37→17:07)
[2020-01-14 08:27] LABS: BASO % 0.2 % (0.0-1.0); EOS % 0.2 % (0.0-3.0); HEMATOCRIT 30.4 % (36.0-47.0); HEMOGLOBIN 9.6 g/dl (12.0-15.5); LYMPH # 0.8 10^3/uL (1.5-5.0); LYMPH % 12.7 % (24.0-44.0); MEAN CORPUSCULAR HEMOGLOBIN 27.9 pg (27.0-33.0); MEAN CORPUSCULAR HGB CONC 31.6 g/dl (32.0-36.5); MEAN CORPUSCULAR VOLUME 88.4 fl (80.0-96.0); MONO # 0.7 10^3/uL (0.0-0.8); MONO % 10.1 % (0.0-5.0); NEUTROPHILS % 76.5 % (36.0-66.0); PLATELET COUNT, AUTOMATED 176 10^3/uL (150-450); RED BLOOD COUNT 3.44 10^6/uL (4.00-5.40); WHITE BLOOD COUNT 6.5 10^3/uL (4.0-10.0)
[2020-01-14 08:48] LABS: BLOOD UREA NITROGEN 16 MG/DL (7-18); CALCIUM LEVEL 8.1 MG/DL (8.8-10.2); CARBON DIOXIDE LEVEL 30 MEQ/L (21-32); CHLORIDE LEVEL 105 MEQ/L (98-107); CREATININE FOR GFR 0.98 MG/DL (0.55-1.30); GLOMERULAR FILTRATION RATE > 60.0 (>45); GLUCOSE, FASTING 115 MG/DL (70-100); POTASSIUM SERUM 4.1 MEQ/L (3.5-5.1); SODIUM LEVEL 141 MEQ/L (136-145)
[2020-01-14] MEDS: buPROPion **XL** TABLET 150MG (WELLBUTRIN XL) PO SCH (09:00)
[2020-01-14] MEDS: MOM 30ML SUSPENSION UDC PO SCH (09:00)
[2020-01-14] MEDS: MIRALAX *UNIT DOSE* 17GM PACKET PO SCH (09:00)
[2020-01-14] MEDS: PANTOPRAZOLE 40MG TAB (PROTONIX) PO SCH (09:00)
[2020-01-14] MEDS: SERTRALINE 100 MG TAB PO SCH (09:00)
[2020-01-14] MEDS: ONDANSETRON 4MG/2ML VIAL (J2405) IV PRN (09:03)
--- NOTE | 2020-01-14 09:31 | RO ---
DATE OF PROCEDURE: 01/13/2020 PREOPERATIVE DIAGNOSIS: Right knee osteoarthritis. POSTOPERATIVE DIAGNOSIS: Right knee osteoarthritis. PROCEDURE: Right total knee arthroplasty using an Attune rotating platform, size 5 femur size 4 tibial tray, 8 polyethylene, 35 patellar button. SURGEON: Dr. Claudy Melendez. DRIVE IN WAITER/WAITRESS: YVONNE Serrano ANESTHESIA: General. ESTIMATED BLOOD LOSS: 50 mL. COMPLICATIONS: None. INDICATIONS: 69-year-old who wished to go ahead with a knee replacement. She understood the nature and risks. DESCRIPTION OF PROCEDURE: The patient was taken to the operating room, placed in the supine position after general anesthesia was induced. The right lower extremity was prepped and draped in the usual sterile fashion. Time-out was performed. Tourniquet was inflated and a longitudinal incision was made over the anterior aspect of the knee, sharply dissected down through subcutaneous tissue. I then performed a medial parapatellar arthrotomy per routine, everted the patella and used a canal initiating reamer on the femoral side, followed by the intramedullary guide set at 5 degrees of valgus and 9 mm cut. This was pinned in place and a distal femoral cut was made protecting soft tissues. I then sized the femur to be a 5 and placed the pin holes in the end of the femur with the external rotation dialed in. The cutting block was secured and the remaining four cuts were made. I then made the sulcus cut on the femur with the guide in the usual fashion. I then prepared the tibia. The tibial alignment guide was placed and appropriate amount of valgus and posterior slope. This was pinned in place and the external alignment guide was then checked and we were pleased with the overall alignment and position. 4 mm were taken off the low side. The cut was then made in the usual fashion protecting soft tissues. I then used a customs consultant to remove soft tissue and osteophytes from either side of the knee. There were loose bodies in the back the knee. The spacer blocks were used. The posterior cruciate ligament (PCL) was intact so I ended up using a cruciate-retaining system. I decided on a likely size 8 for thickness of polyethylene, which had excellent alignment and balance in flexion and extension. The tibial tray was prepared. A size 4 fit nicely. This was pinned in place, drilled and broached. Excellent alignment. Excellent stability with a size 8 polyethylene. I then freehand cut the patella removing about 7 mm of bone sized to be a 35 and the drill holes were placed. Drill holes were placed in the end of the femur as well. I then removed the trial components, irrigated copiously as the medical billing assistant prepared the bone cement in the modern technique. I put the Exparel in the deep tissues. Once the surfaces were copiously irrigated and dried, I then placed the components cementing the tibial tray, followed by the polyethylene insertion and then cemented on the femoral component. Removed excess bone cement and brought the knee out in extension, cemented on the patella, held this and placed a clamp, removed excess bone cement. I irrigated copiously, placed the TXA in the deep tissues. I then repaired the deep layer with #1-0 Vicryl suture in running Stratafix. Deep irrigation was performed again and once cement hardened I removed the patellar clamp. Copious deep irrigation was performed and then made the remaining closure with a Stratafix for a watertight closure. I irrigated, closed the subcu with #2-0 Vicryl, skin with wong. The tourniquet had been deflated once the cement was hard. Sterile dressing was applied. She was taken to recovery room in stable condition. There were no known complications. The plan will be routine postop. The medical billing assistant was instrumental in holding retractors and mixing bone cement and assisting in wound closure and overall exposure.
[2020-01-14] MEDS: MORPHINE 15 MG SA TAB PO SCH ×2 (10:52→20:25)
[2020-01-14 14:00] VITALS: BP 104/51
[2020-01-14] MEDS ORDERED: RIVAROXABAN 10 MG TAB (XARELTO) PO SCH (18:00)
[2020-01-14 20:23] VITALS: BP 138/66
[2020-01-15] MEDS: PERCOCET 5MG/325MG TAB PO PRN (00:08)
[2020-01-15] MEDS: LEVOTHYROXINE 75MCG TABLET (0.075MG) PO SCH (05:19)
[2020-01-15 06:00] VITALS: BP 112/55
[2020-01-15] MEDS ORDERED: XARE10TA PO (06:19)
[2020-01-15] MEDS ORDERED: MORP15TASA PO (06:19)
[2020-01-15] MEDS: SERTRALINE 100 MG TAB PO SCH (07:59)
[2020-01-15] MEDS: PANTOPRAZOLE 40MG TAB (PROTONIX) PO SCH (08:00)
[2020-01-15] MEDS: MORPHINE 15 MG SA TAB PO SCH (08:00)
[2020-01-15] MEDS: buPROPion **XL** TABLET 150MG (WELLBUTRIN XL) PO SCH (08:00)
[2020-01-15] MEDS: MOM 30ML SUSPENSION UDC PO SCH (08:02)
[2020-01-15] MEDS: MIRALAX *UNIT DOSE* 17GM PACKET PO SCH (08:02)
[2020-01-15] MEDS ORDERED: EPINEPHrine INJ 1 MG/ML 1ML VIAL ONE (14:44)
[2020-01-15] MEDS ORDERED: LIDOCAINE 1% MDV 20ML VIAL ONE (14:44)
[2020-01-15] MEDS ORDERED: ROPIvacaine 0.5% 30 ML INJECTION (J2795 PER 1MG) ONE (14:44)
--- NOTE | 2020-01-19 10:09 | DSES ---
DATE OF ADMISSION: 01/13/2020 DATE OF DISCHARGE: 01/15/2020 ATTENDING PHYSICIAN: Dr. Claudy Melendez ADMISSION DIAGNOSIS: Right knee symptomatic osteoarthritis. OTHER DIAGNOSES: 1. Gastroesophageal reflux disease. 2. Depression. 3. Back problems. 4. Hypothyroidism. 5. Mitral valve prolapse. 6. Kidney stone. 7. Diverticulosis. 8. Thyroid disease. 9. Cataracts. 10. Hiatal hernia. 11. Incontinence. DISCHARGE DIAGNOSIS: Right knee osteoarthritis status post total arthroplasty. OPERATION PERFORMED: Right knee total arthroplasty. HOSPITAL COURSE: This is a pleasant 69-year-old female patient with continued symptomatic right knee osteoarthritis who was admitted to the hospital on 01/13/2020 for surgical intervention. Surgery went well and her postoperative hospital course was without complications. She was up with physical therapy per their protocol, weightbearing as tolerated on the right lower extremity. Pain was controlled on the day of discharge. She will follow deep vein thrombosis (DVT) prophylaxis per protocol. She will resume her preoperative medications and diet along with oral pain medications for pain control. Postoperative instructions to include but not limited to activity modifications and wound care were provided. The patient will follow up in our office in 7-10 days for postoperative followup. Please see the medical record for further details
== END 2020-01-15 14:45 | disposition home or self-care (01) | DRG 470 ==
LOC: M OR 06:20 → M MS5PR 14:00
PROVIDERS: ADMIT Orthopaedic Surgery; ATTEND Orthopaedic Surgery
PROC: 0SRC0J9 Replacement of Right Knee Joint with Synthetic Substitute, Cemented, Open Approach (ICD-10-PCS; principal; 2020-01-13 09:15)
DX: M17.11 Unilateral primary osteoarthritis, right knee (principal); Z88.8 Allergy status to other drugs, medicaments and biological substances; Z79.899 Other long term (current) drug therapy; K21.9 Gastro-esophageal reflux disease without esophagitis; F32.9 Major depressive disorder, single episode, unspecified; E03.9 Hypothyroidism, unspecified; I34.0 Nonrheumatic mitral (valve) insufficiency; K57.30 Diverticulosis of large intestine without perforation or abscess without bleeding; Z87.442 Personal history of urinary calculi; K44.9 Diaphragmatic hernia without obstruction or gangrene; H26.9 Unspecified cataract; Z88.2 Allergy status to sulfonamides; G43.909 Migraine, unspecified, not intractable, without status migrainosus; I10 Essential (primary) hypertension

== ENCOUNTER → 2020-04-22 | Outpatient (CLI) | payer MEDICARE ==
[~2020-04-22] MED LIST changes: -LIDOCAINE 1% MDV 20ML VIAL SQ PRN; -LR 1,000 ML IV ONE; -MIDAZOLAM INJ 2 MG/2 ML VIAL (J2250) IV SCH; +MORP15TASA PO; +PERC5TAB12 PO; +XARE10TA PO; -ceFAZolin SOD 2 GM in IV 1 EA IV ONE; -fentaNYL 100 MCG/2 ML INJECTION (J3010) IV SCH
--- NOTE | 2020-04-22 16:25 | REPMRS ---
Patient History The patient states she had a clinical breast exam in April 2020. Family history of ovarian cancer in maternal grandmother, breast cancer at age 50 or over in maternal aunt, ovarian cancer at age 50 or over in paternal aunt. Took estrogen for 27 years 6 months. 3D TOMOSYNTHESIS WAS PERFORMED. [facility] for [facility] cancer [facility] 4.[facility]%. VOLPARA DENSITY B. Digital Woman Screen Mammo: April 22, 2020 - Exam #: [id number] Bilateral CC and MLO view(s) were taken. Technologist: Viv Hu, Technologist Prior study comparison: April 21, 2019, bilateral digital woman screen mammo performed at [facility]. February 27, 2018, digital woman screen mammo performed at [facility]. FINDINGS: There are scattered fibroglandular densities. There has been no change in the appearance of the mammogram from the prior studies. There is a mild amount of residual fibroglandular tissue which is fairly symmetric. There is no interval development of dominant mass, architectural distortion, or clustered microcalcification suggestive of malignancy. Assessment: BI-RADS/ACR category 1 mammogram. Negative Mammogram. Recommendation Routine screening mammogram in 1 year (for women over age 40). This mammogram was interpreted with the aid of an FDA-approved computer-aided dectection system. Electronically Signed By: Hemanth Rueda MD 04/22/20 [id number]
== END ==
LOC: M WHC 13:02
PROVIDERS: ATTEND Nurse Practitioner Family
DX: Z12.31 Encounter for screening mammogram for malignant neoplasm of breast (principal); M85.852 Other specified disorders of bone density and structure, left thigh; Z92.23 Personal history of estrogen therapy

== ENCOUNTER → 2020-07-09 | Outpatient (CLI) | payer MEDICARE ==
[~2020-07-09] MED LIST changes: +PANT40TA29 PO; -PANT40TA3 PO
== END ==
LOC: M LABSMTC 09:21
PROVIDERS: ATTEND Anesthesiology
DX: Z01.812 Encounter for preprocedural laboratory examination (principal); Z20.828 Contact with and (suspected) exposure to other viral communicable diseases

== ENCOUNTER 2020-07-14 08:18 | Day surgery (SDC) | payer MEDICARE ==
[~2020-07-14] VITALS: Ht 162.6 cm; Wt 73.7 kg
[~2020-07-14 08:18] MED LIST changes: +AMOXICILLIN 500 MG CAP PO ONE; +NS 1,000 ML IV ONE
[2020-07-14] MEDS ORDERED: AMOXICILLIN 500 MG CAP PO ONE (09:30)
[2020-07-14] MEDS ORDERED: fentaNYL 100 MCG/2 ML INJECTION (J3010) As Ordered ONE (09:45)
[2020-07-14] MEDS ORDERED: GLYCOPYRROLATE INJ 0.2 MG/ML 2 ML VIAL As Ordered ONE (10:06)
[2020-07-14] MEDS ORDERED: ePHEDrine SULFATE 25 MG/5 ML(5MG/ML) SYRINGE As Ordered ONE (10:13)
[2020-07-14] MEDS ORDERED: propofoL 200 MG/20 ML VIAL As Ordered ONE (10:30)
[2020-07-14] MEDS ORDERED: LIDOCAINE 2% 100MG/5ML SDV (FOR ANES.) As Ordered ONE (10:30)
[2020-07-14 10:40] VITALS: BP 110/73
[2020-07-14] MEDS ORDERED: propofoL 500 MG/50 ML VIAL As Ordered ONE (10:55)
--- NOTE | 2020-07-27 11:36 | ROOR ---
Patient Name: Mary Rees Procedure Date: 07/14/2020 8:15 AM Date of : 1950 Age: 70 Room: [facility] Gender: Female Note Status: Finalized Procedure: Colonoscopy Indications: Screening for colorectal malignant neoplasm Providers: Hermelindo Barahona Jr, MD Referring MD: Fidencio Torres MD Requesting Provider: Medicines: Propofol per Anesthesia Complications: No immediate complications. Procedure: Pre-Anesthesia Assessment: - Prior to the procedure, a History and Physical was performed, and patient medications and allergies were reviewed. The patient is competent. The risks and benefits of the procedure and the sedation options and risks were discussed with the patient. All questions were answered and informed consent was obtained. Patient identification and proposed procedure were verified by the physician and the nurse in the pre-procedure area and in the procedure room. Mental Status Examination: alert and oriented. Airway Examination: normal oropharyngeal airway and neck mobility. Respiratory Examination: clear to auscultation. CV Examination: normal. ASA Grade Assessment: II - A patient with mild systemic disease. After reviewing the risks and benefits, the patient was deemed in satisfactory condition to undergo the procedure. The anesthesia plan was to use moderate sedation / analgesia (conscious sedation). Immediately prior to administration of medications, the patient was re-assessed for adequacy to receive sedatives. The heart rate, respiratory rate, oxygen saturations, blood pressure, adequacy of pulmonary ventilation, and response to care were monitored throughout the procedure. The physical status of the patient was re-assessed after the procedure. The Colonoscope was introduced through the anus and advanced to the cecum, identified by appendiceal orifice and ileocecal valve. The colonoscopy was performed without difficulty. The patient tolerated the procedure well. The quality of the bowel preparation was adequate. Findings: The rectum, recto-sigmoid colon, sigmoid colon, descending colon, transverse colon, ascending colon, cecum, appendiceal orifice and ileocecal valve appeared normal. Impression: - The rectum, recto-sigmoid colon, sigmoid colon, descending colon, transverse colon, ascending colon, cecum, appendiceal orifice and ileocecal valve are normal. - No specimens collected. Recommendation: - Discharge patient to home (ambulatory). - Repeat colonoscopy in 10 years for screening purposes. Hermelindo Barahona Jr, MD 07/14/2020 10:16:24 AM Number of Addenda: 0 Note Initiated On: 07/14/2020 8:15 AM Estimated Blood Loss: Estimated blood loss: none.
--- NOTE | 2020-07-27 11:36 | ROOR ---
Patient Name: Mary Rees Procedure Date: 07/14/2020 8:14 AM Date of : 1950 Age: 70 Room: [facility] Gender: Female Note Status: Finalized Procedure: Upper GI endoscopy Indications: Suspected esophageal reflux Providers: Hermelindo Barahona Jr, MD Referring MD: Fidencio Torres MD Requesting Provider: Medicines: Propofol per Anesthesia Complications: No immediate complications. Procedure: Pre-Anesthesia Assessment: - Prior to the procedure, a History and Physical was performed, and patient medications and allergies were reviewed. The patient is competent. The risks and benefits of the procedure and the sedation options and risks were discussed with the patient. All questions were answered and informed consent was obtained. Patient identification and proposed procedure were verified by the physician and the nurse in the pre-procedure area and in the procedure room. Mental Status Examination: alert and oriented. Airway Examination: normal oropharyngeal airway and neck mobility. Respiratory Examination: clear to auscultation. CV Examination: normal. ASA Grade Assessment: II - A patient with mild systemic disease. After reviewing the risks and benefits, the patient was deemed in satisfactory condition to undergo the procedure. The anesthesia plan was to use moderate sedation / analgesia (conscious sedation). Immediately prior to administration of medications, the patient was re-assessed for adequacy to receive sedatives. The heart rate, respiratory rate, oxygen saturations, blood pressure, adequacy of pulmonary ventilation, and response to care were monitored throughout the procedure. The physical status of the patient was re-assessed after the procedure. The Endoscope was introduced through the mouth, and advanced to the second part of duodenum. The upper GI endoscopy was accomplished without difficulty. The patient tolerated the procedure well. Findings: The upper third of the esophagus, middle third of the esophagus and lower third of the esophagus were normal. A small hiatal hernia was present. The cardia, gastric fundus, gastric body, gastric antrum, prepyloric region of the stomach and pylorus were normal. The duodenal bulb, first portion of the duodenum and second portion of the duodenum were normal. Impression: - Normal upper third of esophagus, middle third of esophagus and lower third of esophagus. - Small hiatal hernia. - Normal cardia, gastric fundus, gastric body, antrum, prepyloric region of the stomach and pylorus. - Normal duodenal bulb, first portion of the duodenum and second portion of the duodenum. - No specimens collected. Recommendation: - Discharge patient to home (ambulatory). - Return to my office at appointment to be scheduled. Hermelindo Barahona MD Hermelindo Barahona Jr, MD 07/14/2020 9:59:06 AM Electronically signed by Hermelindo Barahona Jr, MD Number of Addenda: 0 Note Initiated On: 07/14/2020 8:14 AM Estimated Blood Loss: Estimated blood loss: none.
== END 2020-07-14 10:54 | disposition home or self-care (01) ==
LOC: M OPP 08:18
PROVIDERS: ATTEND Surgery
DX: Z12.11 Encounter for screening for malignant neoplasm of colon (principal); K44.9 Diaphragmatic hernia without obstruction or gangrene; R12 Heartburn; E03.9 Hypothyroidism, unspecified; J44.9 Chronic obstructive pulmonary disease, unspecified; I34.2 Nonrheumatic mitral (valve) stenosis; Z79.899 Other long term (current) drug therapy; Z88.1 Allergy status to other antibiotic agents; Z88.2 Allergy status to sulfonamides; Z88.8 Allergy status to other drugs, medicaments and biological substances
CPT/HCPCS: 43235; G0121; J3010

== ENCOUNTER → 2021-04-26 | Outpatient (CLI) | payer MEDICARE ==
[~2021-04-26] MED LIST changes: -AMOXICILLIN 500 MG CAP PO ONE; -HM C500T3 PO; +HM C500T4 PO; -NS 1,000 ML IV ONE
--- NOTE | 2021-04-26 11:16 | REPMRS ---
Patient History The patient states she had a clinical breast exam in 04/2021. Family history of ovarian cancer in maternal grandmother, breast cancer at age 50 or over in maternal aunt, ovarian cancer at age 50 or over in paternal aunt. Took estrogen for 27 years 6 months. Tomosynthesis is performed. Volpara breast density is b. [facility] lifetime risk of breast cancer 4.1%. Patient states no breast complaints today. Patient has signed MRS History Sheet. Digital Woman Screen Mammo: April 26, 2021 - Exam #: [id number] Bilateral CC and MLO view(s) were taken. Technologist: Berta Keita, Technologist Prior study comparison: April 22, 2020, bilateral digital woman screen mammo performed at [facility]. April 21, 2019, bilateral digital woman screen mammo performed at [facility]. FINDINGS: There are scattered fibroglandular densities. There has been no change in the appearance of the mammogram from the prior studies. There is a mild amount of residual fibroglandular tissue which is fairly symmetric. There is no interval development of dominant mass, architectural distortion, or clustered microcalcification suggestive of malignancy. Assessment: BI-RADS/ACR category 1 mammogram. Negative Mammogram. Recommendation Routine screening mammogram in 1 year (for women over age 40). This mammogram was interpreted with the aid of an FDA-approved computer-aided dectection system. Electronically Signed By: Hemanth Rueda MD 04/26/21 [id number]
== END ==
LOC: M WHC 10:00
PROVIDERS: ATTEND Nurse Practitioner Women's Health
DX: Z12.31 Encounter for screening mammogram for malignant neoplasm of breast (principal); Z92.23 Personal history of estrogen therapy

== ENCOUNTER 2021-09-09 10:48 | Emergency (ER) | payer MEDICARE ==
[~2021-09-09] VITALS: Ht 162.6 cm; Wt 83.6 kg
--- OUTSIDE RECORDS SUMMARY | 2021-09-09 10:58 | CCD ---
Continuity of Care Document (CCD) Created on: 09/02/2021 Mary Rees External Reference #: [id number] : 1950 Sex: Female Author Author Mary PERDUE PA Organization Unknown Address [address] [place] [address] [place] [address] Phone [phone] Care Team Providers Care Granite Cutter Name Role Phone Fidencio Torres MD [facility] [phone] Problems Description No Information Available Social History Type Date Description Comments Sex Unknown ETOH Use Denies alcohol use Tobacco Use Start: Unknown Patient has never smoked Tobacco Use Start: Unknown The Patient Has Never Vaped Smoking Status Reviewed: 09/02/21 The Patient Has Never Vaped Allergies and adverse reactions Active Allergies Criticality Reaction | Severity Comments Date Atenolol Unable to assess criticality Allergic asthma 07/21/2016 Scopolamine Unable to assess criticality rash 07/26/2019 Bactrim Unable to assess criticality 08/16/2019 Levaquin Unable to assess criticality 08/18/2021 Medications Active Medications SIG Qnty Indications Ordering Provide r Date Doxycycline Monohydrate 100mg Caps ules 1 cap by mouth twice a day for 10 days 20caps J20.9 Red Huerta JR., M.D. 09/02/2021 Prednisone 20mg Tablets take one tablet three times a day for three days, then take one tab twice a day for three days, then take one tab daily for three days 18tabs J20.9 C adilia Huerta JR., M.D. 09/02/2021 Cheratussin ac 100-10mg/5ML Soluti on take 5 mls at hs for cough 30mls J20.9 Arnold Ballesteros JR. 09/02/2021 Bupropion HCL ER (XL) 300mg Tablets ER 24HR 1 by mouth every day Unknown 00/00/0 000 Levothyroxine Sodium Unknown 00/0 Sertraline HCL Unknown One Daily For Women Unknown Excedrin Migraine prn Unknown 000 Visine Extra prn Unknown Vitamin C Unknown Vitamin D3 Maximum Strength Unknown Pantoprazole Sodium Unknown History Medications Amoxicillin/Clavulanate Potassium 875-125mg Tablets 1 tab by mouth twice a day x10 days 20tabs Red Huerta JR., M.D. 08/18/2021 - 09/02/2021 Albuterol Sulfate HFA 108(90Base) mcg/Act Aerosol 1-2 puff inhaled 3 x per day for sob/wheezing 8.500gm Red Huerta JR., M.D. 08/18/2021 - 09/02/2021 Mucinex 600mg Tablets ER 12HR 1 tab by mouth twice a day x 10 days 20tabs Red Nj M.D. 08/18/2021 - 09/02/2021 Immunizations Description No Information Available Vital Signs Date Vital Result Comment 09/02/2021 8:27am BP Systolic 147 mmHg BP Diastolic 88 mmHg Heart Rate 85 /min Respiratory Rate 18 /min O2 % BldC Oximetry 96 % Body Temperature 96.6 F Weight 190.00 lb Height 64 inches 5'4" BMI (Body Mass Index) 32.6 kg/m2 Pain Level 0 08/18/2021 6:47pm BP Systolic 112 mmHg BP Diastolic 76 mmHg Heart Rate 85 /min Respiratory Rate 16 /min O2 % BldC Oximetry 97 % Body Temperature 97.5 F Weight 180.00 lb Height 64 inches 5'4" BMI (Body Mass Index) 30.9 kg/m2 Pain Level 0 Results Description No Information Available Procedures Date Code Description Status 09/02/2021 07894 Office/Outpatient Established Mo d MDM 30-39 Min Completed 08/18/2021 28058 Office/Outpatient Established Lo w MDM 20-29 Min Completed Medical Devices Description No Information Available Encounters Type Date Location Provider Dx Diagnosis Office Visit 09/02/2021 8:10a Main Office YVONNE Guerra J20 .9 Acute bronchitis, unspecified J06.9 Acute upper respiratory infe ction, unspecified Office Visit 08/18/2021 5:20p Main Office YVONNE Smith J2 0.9 Acute bronchitis, unspecified Z20.828 Contact w and exposure to ot h viral communicable diseases Assessments Date Code Description Provider 09/02/2021 J20.9 Acute bronchitis, unspecified Mi YVONNE Nam 09/02/2021 J06.9 Acute upper respiratory infectio n, unspecified YVONNE Guerra 08/18/2021 J20.9 Acute bronchitis, unspecified Sh YVONNE Mireles 08/18/2021 Z20.828 Contact with and (crawley spected) exposure to other viral communicable diseases YVONNE Smith Plan of Treatment 09/02/2021 - YVONNE Guerra* J20.9 Acute bronchitis, unspecified* New Medication:* Doxycycline Monohydrate 100 mg - 1 cap by mouth twice a day for 10 days * Prednisone 20 mg - take one tablet three times a day for three days, then take one tab twice a day for three days, then take one tab daily for three days * Cheratussin ac 100-10 mg/5ML - take 5 mls at hs for cough * Comments:* Warm fluids/tylenol/rest/time.f/u PRN * J06.9 Acute upper respiratory infection, unspecified Functional Status Description No Information Available Mental Status Description No Information Available Referrals Description No Information Available
--- OUTSIDE RECORDS SUMMARY | 2021-09-09 10:58 | CCD | Continuity of Care Document ---
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-[employer] Organization Unknown Address [address], [address] [place] [address] Phone [phone] Care Team Providers Care Grades 9 12 Tutor Name Role Phone Fidencio Torres MD [facility] [phone] Problems Description No Information Available Social History Type Date Description Comments Sex Unknown ETOH Use Social Drinker Tobacco Use Start: Unknown Patient has never smoked Sun Exposure minimum amount of sun exposure Sun Exposure Has experienced blistering from sunburns Sun Exposure Uses 15-30 SPF Sun Exposure Has never used tanning bed Allergies and adverse reactions Active Allergies Criticality Reaction | Severity Comments Date Atenolol Unable to assess criticality 05/23/2017 Bactrim Unable to assess criticality 05/23/2017 Medications Active Medications SIG Qnty Indications Ordering Provide r Date Mupirocin 2% Ointment apply to R lower leg sparingly twice a day until healed 22gm S80.811A MAGED Bailey 05/24/2021 Bupropion HCL Unknown Levothyroxine Sodium Unknown Metformin HCL Unknown Sertraline HCL Unknown Excedrin Migraine Unknown 000 One Daily For Women Unknown Visine Tears Unknown Vitamin C Unknown Vitamin D3 Unknown Premarin 0.45mg Tablets Unknown Tylenol 8 Hour Arthritis Pain 650mg Tablets ER Unknown Azo Cranberry 250-30mg Tablets Unknown Protonix Unknown Immunizations Description No Information Available Vital Signs Date Vital Result Comment 08/08/2021 2:06pm BP Systolic 140 mmHg BP Diastolic 80 mmHg 08/08/2021 1:54pm BP Systolic 168 mmHg BP Diastolic 78 mmHg Weight 180.00 lb Height 65 inches 5'5" BMI (Body Mass Index) 30.0 kg/m2 Results Description No Information Available Procedures Date Code Description Status 08/08/2021 55933 Destruction Benign L esions Other Than Skin Tags Or Cutan Vascular Completed 05/24/2021 34756 Office/Outpatient Established Mo d MDM 30-39 Min Completed Medical Devices Description No Information Available Encounters Type Date Location Provider Dx Diagnosis Office Visit 05/24/2021 1:30p Main Office MAGED Bailey D22. 5 Melanocytic nevi of trunk D22.72 Melanocytic nevi of left low er limb, including hip L82.1 Other seborrheic keratosis L81.4 Other melanin hyperpigmentat ion S80.811A Abrasion, right lower leg, i nitial encounter Z12.83 Encounter for screening for malignant neoplasm of skin Assessments Date Code Description Provider 08/08/2021 L82.1 Other seborrheic keratosis Angelas AGNES Reyes 08/08/2021 L82.1 Other seborrheic keratosis AGNES Stover 08/08/2021 R20.8 Other disturbances of skin sensa tion AGNES Hoyt 08/08/2021 R20.8 Other disturbances of skin sensa tion AGNES Prescott 05/24/2021 D22.5 Melanocytic nevi of trunk Phyl MAGED Kelly 05/24/2021 D22.72 Melanocytic nevi of left lower l imb, including hip Phyl MAGED Payne 05/24/2021 L82.1 Other seborrheic keratosis MAGED Bailey 05/24/2021 L81.4 Other melanin hyperpigmentation MAGED Bailey 05/24/2021 S80.811A Abrasion, right lower leg, initi al encounter MAGED Bailey 05/24/2021 Z12.83 Encounter for screening for ronel gnant neoplasm of skin MAGED Bailey Plan of Treatment Future Appointment(s):* 05/24/2022 1:30 pm - AGNES Prescott at Main Office 08/08/2021 - AGNES Prescott* L82.1 Other seborrheic keratosis* Comments:* Discussed LN2 at length to include that the areas treated will get red, bubble up/blister, maybe get a little weepy, form a scab then heal. Discussed S/E to include scarring, risk of hypopigmentation, bleeding, infectionInformed consent signedLN2 today to 1 SK located on L forearm due to irritation Wound care instructions givenInstructed to call with any problems * R20.8 Other disturbances of skin sensation* Comments:* See above. * Follow up:* Has appointment Functional Status Description No Information Available Mental Status Description No Information Available Referrals Description No Information Available
--- OUTSIDE RECORDS SUMMARY | 2021-09-09 10:58 | CCD | Continuity of Care Document ---
Author Author Mary PAYNE PA Organization Unknown Address [address] [place] [address] [place] [address] Phone [phone] Care Team Providers Care Couture Alterations Dressmaker Name Role Phone Fidencio Torres MD [facility] [phone] Problems Description No Information Available Social History Type Date Description Comments Sex Unknown ETOH Use Denies alcohol use Tobacco Use Start: Unknown Patient has never smoked Tobacco Use Start: Unknown The Patient Has Never Vaped Smoking Status Reviewed: 08/18/21 The Patient Has Never Vaped Allergies, Adverse Reactions, Alerts Active Allergies Criticality Reaction | Severity Comments Date Atenolol Unable to assess criticality Allergic asthma 07/21/2016 Scopolamine Unable to assess criticality rash 07/26/2019 Bactrim Unable to assess criticality 08/16/2019 Levaquin Unable to assess criticality 08/18/2021 Medications Active Medications SIG Qnty Indications Ordering Provide r Date Amoxicillin/Clavulanate Potassium 875-125mg Tablets 1 tab by mouth twice a day x10 days 20tabs Red Huerta JR., M.D. 08/18/2021 Albuterol Sulfate HFA 108(90Base) mcg/Act Aerosol 1-2 puff inhaled 3 x per day for sob/wheezing 8.500gm Red Huerta JR., M.D. 08/18/2021 Mucinex 600mg Tablets ER 12HR 1 tab by mouth twice a day x 10 days 20tabs Red Nj M.D. 08/18/2021 Bupropion HCL ER (XL) 300mg Tablets ER 24HR 1 by mouth every day Unknown 00/00/0 000 Levothyroxine Sodium Unknown 000 Sertraline HCL Unknown One Daily For Women Unknown Excedrin Migraine prn Unknown 000 Visine Extra prn Unknown Vitamin C Unknown Vitamin D3 Maximum Strength Unknown Pantoprazole Sodium Unknown Immunizations Description No Information Available Vital Signs Date Vital Result Comment 08/18/2021 6:47pm BP Systolic 112 mmHg BP Diastolic 76 mmHg Heart Rate 85 /min Respiratory Rate 16 /min O2 % BldC Oximetry 97 % Body Temperature 97.5 F Weight 180.00 lb Height 64 inches 5'4" BMI (Body Mass Index) 30.9 kg/m2 Pain Level 0 08/16/2019 9:47am BP Systolic 146 mmHg BP Diastolic 84 mmHg Heart Rate 92 /min Respiratory Rate 12 /min O2 % BldC Oximetry 95 % Body Temperature 98.8 F Weight 184.00 lb Height 65 inches 5'5" BMI (Body Mass Index) 30.6 kg/m2 Pain Level 0 Results Description No Information Available Procedures Date Code Description Status 08/18/2021 39559 Office/Outpatient Established Lo w MDM 20-29 Min Completed Medical Devices Description No Information Available Encounters Type Date Location Provider Dx Diagnosis Office Visit 08/18/2021 5:20p Main Office YVONNE Smith J2 0.9 Acute bronchitis, unspecified Z20.828 Contact w and exposure to ot h viral communicable diseases Assessments Date Code Description Provider 08/18/2021 J20.9 Acute bronchitis, unspecified YVONNE Mireles 08/18/2021 Z20.828 Contact with and (crawley spected) exposure to other viral communicable diseases YVONNE Smith Plan of Treatment No Information Available Functional Status Description No Information Available Mental Status Description No Information Available Referrals Description No Information Available
--- OUTSIDE RECORDS SUMMARY | 2021-09-09 10:58 | CCD | Continuity of Care Document ---
Author Author Mary PERDUE PA Organization Unknown Address [address] [place] [address] [place] [address] Phone [phone] Care Team Providers Care Hog Grader Name Role Phone Fidencio Torres MD [facility] [phone] Problems Description No Information Available Social History [...] Available Procedures Date Code Description Status 09/02/2021 08755 Office/Outpatient Established Mo d MDM 30-39 Min Completed 08/18/2021 82345 Office/Outpatient Established Lo w MDM 20-29 Min [...]
--- OUTSIDE RECORDS SUMMARY | 2021-09-09 10:58 | CCD | Continuity of Care Document ---
Author Author Mary DEVINE MD Organization Unknown Address [address] [place] [address], [facility] [address] [place] [address] Phone [phone] Care Team Providers Care Wheel Shop Supervisor Name Role Phone Fidencio Torres MD [facility] [phone] Fidencio Torres MD [facility] [phone] Problems Description No Information Available Social History Type Date Description Comments Sex Unknown ETOH Use Denies alcohol use Tobacco Use Start: Unknown Patient has never smoked Allergies, Adverse Reactions, Alerts Active Allergies Criticality Reaction | Severity Comments Date Atenolol Unable to assess criticality 04/14/2019 Scopolamine Unable to assess criticality 04/14/2019 Medications Active Medications SIG Qnty Indications Ordering Provide r Date Clindamycin HCL 300mg Capsules Take 2 capsules by mouth one hour prior to dental [id number] 2caps Claudy Devine MD 05/04/2020 Tramadol HCL 50mg Tablets Take 1 Tablet Every 8 as Needed For Pain MDD 3, Surg Date 01/13/2020 15tabs Z47.1 Jim Harris MD 02/05/2020 Z96.651 Bupropion Hydrochloride ER (XL) 300mg Tablets ER 24HR Unknown Synthroid 50mcg Tablets 1 by mouth every day Unknown Metformin HCL ER 750mg Tablets ER 24HR take two tablets by mouth before supper Unknown Premarin 0.625mg/GM Cream 1/4 applicatorful vaginally at bedtime for 14 days then three times weekly Unknown Zoloft 100mg Tablets 1 by mouth every day Unknown Azo Cranberry 250-30mg Tablets Unknown Excedrin Migraine [phone] Tab lets 1 tab every 6h as needed migraine. Unknown Tylenol 8 Hour Arthritis Pain 650mg Tablets ER 1 by mouth as needed every 8 hours Unknow n Refresh Tears 0.5% Solution 1 drop both eyes twice a day as needed Unknown Vitamin D3 2000Unit Chewtabs 1 by mouth every day Unknown Immunizations Description No Information Available Vital Signs Date Vital Result Comment 04/27/2021 1:20pm Body Temperature 96.7 F Height 64 inches 5'4" Weight 175.00 lb BMI (Body Mass Index) 30.0 kg/m2 01/25/2020 8:54am Body Temperature 96.9 F Results Description No Information Available Procedures Date Code Description Status 07/21/2021 62180 Office/Outpatient Established Lo w MDM 20-29 Min Completed 04/27/2021 35832 Office/Outpatient Established Mo d MDM 30-39 Min Completed 04/27/2021 16294 X-Ray Knee Complete W/Obliques & Tunnel And/Or Standing Views Completed 04/27/2021 26003 Inject/Drain Joint/Bursa Major C ompleted 02/2018 [id number] Bone Mineral Density Test Comple madyson 01/2009 09103707 Colonoscopy Completed Medical Devices Description No Information Available Encounters Type Date Location Provider Dx Diagnosis Office Visit 07/21/2021 11[place] Z47.1 Aftercare following joint replacement surgery Z96.651 Presence of right artificial knee joint M17.12 Unilateral primary osteoarth ritis, left knee Office Visit 04/27/2021 1:15p [place] MD M17.12 Unilateral primary osteoarthritis, left knee Assessments Date Code Description Provider 07/21/2021 Z47.1 Aftercare following joint replac ement surgery Claudy Devine MD 07/21/2021 Z96.651 Presence of right artificial kne e joint Claudy Devine MD 07/21/2021 M17.12 Unilateral primary osteoarthriti s, left knee Claudy Devine MD 04/27/2021 M17.12 Unilateral primary osteoarthriti s, left knee Claudy Devine MD Plan of Treatment 07/21/2021 - Claudy Devine MD* Z47.1 Aftercare following joint replacement surgery * Z96.651 Presence of right artificial knee joint * M17.12 Unilateral primary osteoarthritis, left knee* Follow up:* PRN for left knee 2-3 month rt knee manuel with xrays( 3 views) with SBF Functional Status Description No Information Available Mental Status Description No Information Available Referrals Description No Information Available
--- OUTSIDE RECORDS SUMMARY | 2021-09-09 10:58 | CCD | Continuity of Care Document ---
Author Author Lab Schedule, Mary Francis Organization Unknown Address [address] [address] Phone Unavailable Care Team Providers Care Roofer Name Role Phone Fidencio Torres MD [facility] [phone] [facility] [phone] Problems Active Problems Provider Date Osteoporosis Onset: 03/04/2011 Mixed hyperlipidemia Onset: 03/04/2011 Genuine stress incontinence Onset: 08/18 Anemia Onset: 12/06/2009 Urinary tract infectious disease Onset: 04/03/2009 Migraine Onset: 01/21/2009 Depressive disorder Onset: 01/02/2009 Esophageal reflux finding Onset: 009 Benign essential hypertension Onset: Vitamin D deficiency Onset: 01/02/2009 Social History Type Date Description Comments Sex Unknown Tobacco Use Start: Unknown Never Smoked Cigarettes ETOH Use Rarely consumes alcohol Tobacco Use Start: Unknown Patient has never smoked Exercise Type/Frequency Exercises regularly Allergies and adverse reactions Active Allergies Criticality Reaction | Severity Comments Date Atenolol Unable to assess criticality wheezing 06/22/2015 Bactrim Unable to assess criticality dizzyness, n ausea, lightheaded 09/28/2016 Medications Active Medications SIG Qnty Indications Ordering Provide r Date Levothyroxine Sodium 88mcg Tablets 1 tab by mouth every day 90tabs Fidencio Torres M.D. 05/30/[address] 1 by mouth every morning 90tabs Red Huerta MD 10/23/2019 Cheratussin ac 100-10mg/5ML Soluti on 10ml po Q4-6 hrs prn cough 473ml Fidencio Torres M.D. 08/25 Ventolin HFA 108(90Base) mcg/Act A erosol 2 puffs four times a day as needed 24gm Fidencio Torres M.D. 08/20/2019 Bupropion Hydrochloride ER (XL) 300mg Tablets ER 24HR take 1 tablet by mouth every morning 90tabs Norberto Torres M.D. 05/25/2019 Acidophilus Lactobacillus Capsule s 1 tab with each meal and at bedtime x 14 days 56caps J01.90 Alla Moncada, [facility] 12/11/2018 Azelastine HCL (Nasal) 0.1% Soluti on use 2 sprays in each nostril twice a day 30ml J20.9 Zari Serrano [facility] 12/28/2016 Fluticasone Propionate 50mcg/Act Suspension 2 sprays each nostril 2 hours before bed 9.900ml J20.9 Zari Serrano, [facility] 12/28/2016 Replens Gel 1 applicator q 3 days Fidencio Torres M.D. 09/28/2016 Excedrin Migraine [id number] Tab lets 1-2 po as needed h/a Fidencio Torres M.D. 12/23/2015 Vitamin D-3 1000Unit Capsules 2 by mouth daily Fidencio Torres M.D. 06/22/2015 Vitamin C 500mg Capsules ever y day Fidencio Torres M.D. 06/22/2015 Centrum Silver Adult 50+ Adult 50 Tablets every day Fidencio Torres M.D. 06/22/2015 Visine Tears 0.2-0.2-1% Solution Fidencio Torres M.D. 06/22/2015 Sertraline HCL 100mg Tablets 1 by mouth every day 90tabs Fidencio Torres M.D. 03/14/2015 Immunizations CPT Code Status Date Vaccine Lot # U-Flu Given 09/15/2019 Influenza,Unspecified 36173 Given 04/02/2019 Shingrix Zoster Vaccine (HZV), Recombinant, Subunit, Adjuvanted U-Pneum Given 08/12/2018 Pneumococcal,Unspecified U-PneuC Given 10/15/2017 Prevnar 13 U-PneuC Given 09/05/2016 Prevnar 13 49369 Given 08/11/2014 Influenza Virus Vaccine 32466 Given 08/26/2013 Influenza Virus Vaccine 49241 Given 12/24/2012 Zoster Vaccine 32096 Given 09/30/2012 Influenza Virus Vaccine 10251 Given 08/18/2011 Influenza Virus Vaccine 68155 Given 04/05/2009 Adacel- Tetanus Diphtheria P ertussis Vital Signs Date Vital Result Comment 06/16/2021 10:20am BP Systolic 134 mmHg BP Diastolic 70 mmHg Heart Rate 68 /min Height 64 inches 5'4" Weight 182.00 lb BMI (Body Mass Index) 31.2 kg/m2 05/30/2021 1:41pm BP Systolic 118 mmHg BP Diastolic 75 mmHg Heart Rate 69 /min Height 64 inches 5'4" Weight 181.00 lb BMI (Body Mass Index) 31.1 kg/m2 Results Test Acquired Date Facility Test Result H/L Range Note Laboratory test finding 07/13/2021 [facility] Maintenance Machine Repairer: [place] [address] [phone] T4 Free 0.99 ng/dL 0.76 - 1.46 Thyroid Stimulating Hormone 0.87 uIU/mL 0.36 - 3.74 Complete Blood Count 05/02/2021 [facility] Maintenance Machine Repairer: [place] [address] [phone] WBC 4.8 x10*3/UL 4.1 - 10.9 RBC 4.47 x10*6/UL 4.20 - 6.30 Hemoglobin 12.6 g/dL 12.0 - 18.0 Hematocrit 37.6 % 37.0 - 51.0 MCV 84.1 fL 80.0 - 97.0 MCH 28.2 pg 26.0 - 32.0 MCHC 33.6 g/dL 31.0 - 38.0 RDW 13.2 % 11.6 - 13.7 PLT 220 x10*3/UL 140 - 440 MPV 8.5 FL 7.8 - 11.0 Lymph % 33.4 % 10.0 - 58.5 Mid % 6.7 % 1.7 - 9.3 Neut % 59.9 % 37.0 - 92.0 Lymph # 1.6 x10*3/UL 0.6 - 4.1 Mid # 0.3 x10*3/UL 0.1 - 0.6 Neut # 2.9 x10*3/UL 2.0 - 7.8 Comprehensive Chem Profile 05/02/2021 [facility] Maintenance Machine Repairer: [place] [address] [phone] Glucose 74 mg/dL 74 - 99 1 BUN 24 mg/dL High 7 - 18 Creatinine 1.1 mg/dL 0.6 - 1.3 Sodium 143 mEq/L 136 - 145 Potassium 4.5 mEq/L 3.5 - 5.1 Chloride 105 mEq/L 98 - 107 Carbon Dioxide 31 mEq/L 21 - 32 Calcium 8.8 mg/dL 8.5 - 10.1 Alk. Phosphatase 117 mg/dL High 46 - 116 Total Bilirubin 0.3 mg/dL 0.2 - 1.0 Ast (Sgot) 12 U/L Low 15 - 37 Alt (SGPT) 21 U/L 12 - 78 Albumin 3.6 g/dL 3.4 - 5.0 Total Protein 6.8 g/dL 6.4 - 8.2 A/G Ratio 1.13 CALC 1.00 - 1.90 GFR 49 mL/min Low >60 GFR 60 mL/min Low >60 2 Lipid Profile 05/02/2021 [facility] Maintenance Machine Repairer: [place] [address] [phone] Cholesterol 230 mg/dL High 131 - 200 Triglycerides 64 mg/dL 30 - 150 HDL Cholesterol 94 mg/dL High 35 - 60 LDL (Calculated) 123 CALC 50 - 159 Laboratory test finding 05/02/2021 [facility] Maintenance Machine Repairer: Dr Red [place] [address] [phone] Thyroid Stimulating Hormone 4.36 uIU/mL High 0.3 6 - 3.74 1 100-125 mg/dL PRE-DIABET ES/FASTING >126 mg/dL DIABETES/FASTING 2 CHRONIC KIDNEY DISEASE STAGI NG PER NKF STAGE I & II GFR >= 60 NORMAL TO MILDLY DECREASED STAGE III GFR 30-59 MODERATELY DECREASED STAGE IV GFR 15-29 SEVERELY DECREASED STAGE V GFR <15 VERY LITTLE GFR LEFT ESRD GFR <15 ON SUPERVISOR VACUUM METALIZING Procedures Date Code Description Status 06/16/2021 70468 Office/Outpatient Established Mo d MDM 30-39 Min Completed 06/16/2021 05308 EKG/Interpretation & Report Comp leted 05/30/2021 86125 Office/Outpatient Established Mo d MDM 30-39 Min Completed 07/14/2020 [id number] Colonoscopy Completed 04/22/2020 [id number] Bone Mineral Density Test Comple madyson 04/22/2020 [id number] Mammogram Completed 02/17/2016 [id number] Bone Mineral Density Test Comple [facility] 02/17/2016 [id number] Mammogram Completed 06/23/2015 30460796 Mammogram Completed 01/2015 [id number] Mammogram Completed 02/15/2014 511233444 Bone Mineral Density Test Comple [facility] 01/2009 06833653 Colonoscopy Completed 2007 [id number] Colonoscopy Completed Medical Devices Description No Information Available Encounters Type Date Location Provider Dx Diagnosis Office Visit 06/16/2021 10:00a [facility] Z01.818 Encounter for other preprocedural examin ation M79.672 Pain in left foot Z96.651 Presence of right artificial knee joint K21.9 Gastro-esophageal reflux dis ease without esophagitis E03.9 Hypothyroidism, unspecified E78.5 Hyperlipidemia, unspecified H91.13 Presbycusis, bilateral J30.9 Allergic rhinitis, unspecifi ed J45.998 Other asthma G47.00 Insomnia, unspecified N18.30 Chronic kidney disease, stag e 3 unspecified G43.909 Migraine, unsp, not intracta ble, without status migrainosus Office Visit 05/30/2021 1:30p [facility] E78.5 Hyperlipidemia, unspecified E03.9 Hypothyroidism, unspecified K21.9 Gastro-esophageal reflux dis ease without esophagitis F34.1 Dysthymic disorder Z96.651 Presence of right artificial knee joint H91.13 Presbycusis, bilateral N95.2 Postmenopausal atrophic vagi nitis M19.90 Unspecified osteoarthritis, unspecified site J30.9 Allergic rhinitis, unspecifi ed J45.998 Other asthma G47.00 Insomnia, unspecified M25.562 Pain in left knee R63.5 Abnormal weight gain Assessments Date Code Description Provider 07/13/2021 E03.9 Hypothyroidism, unspecified Jaso n F. White, M.D. 07/13/2021 E03.9 Hypothyroidism, unspecified Lab Schedule 06/16/2021 Z01.818 Encounter for other preprocedura l examination Fidencio Torres M.D. 06/16/2021 M79.672 Pain in left foot Fidencio Torres M.D. 06/16/2021 Z96.651 Presence of right artificial kne e joint Fidencio Torres M.D. 06/16/2021 K21.9 Gastro-esophageal reflux disease without esophagitis Fidencio Torres M.D. 06/16/2021 E03.9 Hypothyroidism, unspecified Norberto Torres M.D. 06/16/2021 E78.5 Hyperlipidemia, unspecified Norberto Torres M.D. 06/16/2021 H91.13 Presbycusis, bilateral Fidencio Torres M.D. 06/16/2021 J30.9 Allergic rhinitis, unspecified Blair Torres M.D. 06/16/2021 J45.998 Other asthma Fidencio Torres M.D. 06/16/2021 G47.00 Insomnia, unspecified Fidencio padron M.D. 06/16/2021 N18.30 Chronic kidney disease, stage 3 ghislaineified Fidencio Torres M.D. 06/16/2021 G43.909 Migraine, unspecifie d, not intractable, without status migrainosus Fidencio Torres M.D. 05/30/2021 E78.5 Hyperlipidemia, unspecified Norberto Torres M.D. 05/30/2021 E03.9 Hypothyroidism, unspecified Norberto Torres M.D. 05/30/2021 K21.9 Gastro-esophageal reflux disease without esophagitis Fidencio Torres M.D. 05/30/2021 F34.1 Dysthymic disorder Fidencio welch M.D. 05/30/2021 Z96.651 Presence of right artificial kne e joint Fidencio Torres M.D. 05/30/2021 H91.13 Presbycusis, bilateral Fidencio Torres M.D. 05/30/2021 N95.2 Postmenopausal atrophic vaginiti s Fidencio Torres M.D. 05/30/2021 M19.90 Unspecified osteoarthritis, unsp ecified site Fidencio Torres M.D. 05/30/2021 J30.9 Allergic rhinitis, unspecified Blair Torres M.D. 05/30/2021 J45.998 Other asthma Fidencio Torres M.D. 05/30/2021 G47.00 Insomnia, unspecified Fidencio padron M.D. 05/30/2021 M25.562 Pain in left knee Fidencio Torres M.D. 05/30/2021 R63.5 Abnormal weight gain Fidencio reich M.D. 05/02/2021 E78.5 Hyperlipidemia, unspecified Norberto Torres M.D. 05/02/2021 E78.5 Hyperlipidemia, unspecified Lab Schedule 05/02/2021 N18.30 Chronic kidney disease, stage 3 unspecified Fidencio Torres M.D. 05/02/2021 N18.30 Chronic kidney disease, stage 3 unspecified Lab Schedule 05/02/2021 E03.9 Hypothyroidism, unspecified Norberto Torres M.D. 05/02/2021 E03.9 Hypothyroidism, unspecified Lab Schedule Plan of Treatment Future Appointment(s):* 11/30/2021 8:40 am - Lab Schedule at [facility] * 12/01/2021 1:30 pm - Fidencio Torres M.D. at [facility] 05/30/2021 - Fidencio Torres M.D.* E78.5 Hyperlipidemia, unspecified * E03.9 Hypothyroidism, unspecified * K21.9 Gastro-esophageal reflux disease without esophagitis * F34.1 Dysthymic disorder * Z96.651 Presence of right artificial knee joint * H91.13 Presbycusis, bilateral * N95.2 Postmenopausal atrophic vaginitis * M19.90 Unspecified osteoarthritis, unspecified site * J30.9 Allergic rhinitis, unspecified * J45.998 Other asthma * G47.00 Insomnia, unspecified * M25.562 Pain in left knee * R63.5 Abnormal weight gain * * Comments:* 1. Hyperlipidemia: Improved cholesterol and LDL, HDL remains protective. She will continue to watch diet with portion count. We will continue to monitor.2. Hypothyroidism: Increase dose to 88 mcg daily and recheck labs in 6-8 weeks. 3. Gastro-esophageal reflux disease without esophagitis: Requires PPI every other day and was unable to wean off due to recurrence of symptoms. She had an EGD on 07/14/2020, which showed presence of gastritis. We will continue to monitor.4. Dysthymic disorder: Good results with Wellbutrin and Sertraline, will continue and monitor.5. Presence of right artificial knee joint: Generally stable. We will continue to monitor.6. Presbycusis, bilateral: Good results with hearing aids, will continue and monitor.7. Postmenopausal atrophic vaginitis: Using topical therapy with improvement. Will monitor.8. Osteoarthritis: Involving multiple joints including hands, left knee and foot. She was evaluated by Arnol Myrick at [facility] and will follow up appropriately.9. Allergic rhinitis: Controlled on Fluticasone nasal spray, will continue and monitor.10. Other asthma: Stable on present regimen, will continue and monitor.11. Insomnia: She has some difficulties. She feels tired during the day, which could possibly as she gets up early and suggested naps for 20 minutes after lunch. We will monitor.12. Left knee pain: I have encouraged her to use Tylenol and should avoid Aleve or ibuprofen. We will continue to monitor.13. Abnormal weight gain: There is no significant reason for her recent weight gain after losing about 24 pounds lately. Ongoing cares: I am going to see her again in 6 months with CMP, lipids, TSH and CBC, but also TSH and FT4 to follow up on dose change. If she has new problems or issues sooner she will let us know. Functional Status Description No Information Available Mental Status Description No Information Available Referrals Description No Information Available
--- OUTSIDE RECORDS SUMMARY | 2021-09-09 10:58 | CCD | Continuity of Care Document ---
Author Author Mary APYNE PA Organization Unknown Address [address] [place] [address] [place] [address] Phone [phone] Care Team Providers Care Tunneling Machine Operator Name Role Phone Fidencio Torres MD [facility] [phone] Problems Description No Information Available Social History [...] Available Procedures Date Code Description Status 08/18/2021 16692 Office/Outpatient Established Lo w MDM 20-29 Min [...]
--- OUTSIDE RECORDS SUMMARY | 2021-09-09 10:58 | CCD ---
Continuity of Care Document (CCD) Created on: 07/21/2021 Cabrera Mary Francis External Reference #: [id number] : [id number] Sex: Female Author Author Lab Schedule, Mary Francis Organization Unknown Address [address] [address] Phone Unavailable Care Team Providers Care Rewriter Name Role Phone Fidencio Torres MD [facility] [phone] [facility] [phone] Problems Active Problems Provider Date Osteoporosis Onset: [...] has never smoked Exercise Type/Frequency Exercises regularly Allergies, Adverse Reactions, Alerts Active Allergies Criticality [...] x 14 days 56caps J01.90 Alla Moncada, [facility] 12/11/2018 Azelastine HCL (Nasal) 0.1% Soluti on use 2 sprays in each nostril twice a day 30ml J20.9 Zari Serrano [facility] 12/28/2016 Fluticasone Propionate 50mcg/Act Suspension 2 sprays each nostril 2 hours before bed 9.900ml J20.9 Zari Serrano, [facility] 12/28/2016 Replens Gel 1 applicator q 3 days Fidencio Torres M.D. 09/28/2016 Excedrin Migraine [phone] Tab lets 1-2 po as needed h/a [...] Vaccine Lot # U-Flu Given 09/15/2019 Influenza,Unspecified [id number] Given 04/02/2019 Shingrix Zoster Vaccine (HZV), Recombinant, Subunit, Adjuvanted U-Pneum Given 08/12/2018 Pneumococcal,Unspecified U-PneuC Given 10/15/2017 Prevnar 13 U-PneuC Given 09/05/2016 Prevnar 13 [id number] Given 08/11/2014 Influenza Virus Vaccine 48045 Given 08/26/2013 Influenza Virus Vaccine 81687 Given 12/24/2012 Zoster Vaccine 02511 Given 09/30/2012 Influenza Virus Vaccine 59357 Given 08/18/2011 Influenza Virus Vaccine 00532 Given 04/05/2009 Adacel- Tetanus Diphtheria P ertussis (Age64 & Under) Vital Signs Date Vital Result Comment 06/16/2021 [...] H/L Range Note Laboratory test finding 07/13/2021 [facility] Call Center Dispatcher: [place] [address] [phone] T4 Free 0.99 ng/dL 0.76 - 1.46 Thyroid Stimulating Hormone 0.87 uIU/mL 0.36 - 3.74 Complete Blood Count 05/02/2021 [facility] Call Center Dispatcher: [place] [address] [phone] WBC 4.8 x10*3/UL 4.1 - 10.9 RBC [...] 2.0 - 7.8 Comprehensive Chem Profile 05/02/2021 [facility] Call Center Dispatcher: [place] [address] [phone] Glucose 74 mg/dL 74 - 99 1 [...] mL/min Low >60 2 Lipid Profile 05/02/2021 [facility] Call Center Dispatcher: [place] [address] [phone] Cholesterol 230 mg/dL High 131 - 200 Triglycerides 64 mg/dL 30 - 150 HDL Cholesterol 94 mg/dL High 35 - 60 LDL (Calculated) 123 CALC 50 - 159 Laboratory test finding 05/02/2021 [facility] Call Center Dispatcher: [place] [address] [phone] Thyroid Stimulating Hormone 4.36 uIU/mL High 0.3 6 - 3.74 1 100-125 mg/dL PRE-DIABET ES/FASTING >126 mg/dL DIABETES/FASTING 2 CHRONIC KIDNEY DISEASE STAGI NG PER NKF STAGE I & II GFR >= 60 NORMAL TO MILDLY DECREASED STAGE III GFR 30-59 MODERATELY DECREASED STAGE IV GFR 15-29 SEVERELY DECREASED STAGE V GFR <15 VERY LITTLE GFR LEFT ESRD GFR <15 ON RESPIRATORY PHYSICIAN Procedures Date Code Description Status 06/16/2021 34981 Office/Outpatient Established Mo d MDM 30-39 Min Completed 06/16/2021 56752 EKG/Interpretation & Report Comp leted 05/30/2021 49544 Office/Outpatient Established Mo d MDM 30-39 Min Completed 07/14/2020 59003661 Colonoscopy Completed 04/22/2020 [id number] Bone Mineral Density Test Comple [facility] 04/22/2020 [id number] Mammogram Completed 02/17/2016 [id number] Bone Mineral Density Test Comple [facility] 02/17/2016 [id number] Mammogram Completed 06/23/2015 [id number] Mammogram Completed 01/2015 [id number] Mammogram Completed 02/15/2014 [id number] Bone Mineral Density Test Comple [facility] 01/2009 [id number] Colonoscopy Completed 2007 59888966 Colonoscopy Completed Medical Devices Description No Information Available Encounters Type Date Location Provider Dx Diagnosis [facility] Visit [facility] Z[facility].818 Encounter for other [...] without status migrainosus Office Visit 05/30/2021 1[facility]p [facility] E78.5 Hyperlipidemia, unspecified [...] Code Description Provider 07/13/2021 E03.9 Hypothyroidism, unspecified Norberto Torres M.D. 07/13/2021 E03.9 Hypothyroidism, unspecified Lab Schedule [...] Torres M.D. 06/16/2021 G47.00 Insomnia, unspecified Fidencio apdron M.D. 06/16/2021 N18.30 Chronic kidney disease, stage [...] Torres M.D. 05/30/2021 J30.9 Allergic rhinitis, unspecified J su Torres M.D. 05/30/2021 J45.998 Other asthma Fidencio Torres M.D. 05/30/2021 G47.00 Insomnia, unspecified Fidencio padron M.D. 05/30/2021 M25.562 Pain in left knee Fidencio Torres M.D. 05/30/2021 R63.5 Abnormal weight gain Fidencio reich M.D. 05/02/2021 E78.5 Hyperlipidemia, unspecified Norberto Torres M.D. 05/02/2021 E78.5 Hyperlipidemia, unspecified Lab Schedule 05/02/2021 N18.30 Chronic kidney disease, stage 3 unspecified Fidencio oTrres M.D. 05/02/2021 N18.30 Chronic kidney disease, stage 3 unspecified Lab Schedule 05/02/2021 E03.9 Hypothyroidism, unspecified Norberto Torres M.D. 05/02/2021 E03.9 Hypothyroidism, unspecified Lab Schedule Plan of Treatment Future Appointment(s):* 11/30/2021 8:40 am - Lab Schedule at [facility] * 12/01/2021 1:30 pm - Fidencio Torres M.D. at [facility] 05/30/2021 - Fidencio Torres M.D.* [...]
--- OUTSIDE RECORDS SUMMARY | 2021-09-09 10:58 | CCD | Continuity of Care Document ---
Author Author Mary DEVINE MD Organization Unknown Address [address] [place] [address], [facility] [address] [place] [address] Phone [phone] Care Team Providers Care Shirt Operator Name Role Phone Fidencio Torres MD [facility] [phone] Fidencio Torres MD [facility] [phone] Problems Description No Information Available Social History [...] by mouth one hour prior to dental [id number] 2caps Claudy Devine MD 05/04/2020 Tramadol HCL [...] Azo Cranberry 250-30mg Tablets Unknown Excedrin Migraine [phone] Tab lets 1 tab every 6h as [...] Available Procedures Date Code Description Status 07/21/2021 13271 Office/Outpatient Established Lo w MDM 20-29 Min Completed 04/27/2021 75637 Office/Outpatient Established Mo d MDM 30-39 Min Completed 04/27/2021 18392 X-Ray Knee Complete W/Obliques & Tunnel And/Or Standing Views Completed 04/27/2021 86377 Inject/Drain Joint/Bursa Major C ompleted 02/2018 [id number] Bone Mineral Density Test Comple [facility] 01/2009 05862620 Colonoscopy Completed Medical Devices Description No Information Available Encounters Type Date Location Provider Dx Diagnosis Office Visit 07/21/2021 11:15a [facility] MD M17.12 Unilateral primary osteoarthritis, left knee Z96.651 Presence of right artificial knee joint Office Visit 04/27/2021 1:15p [facility] Dev[facility] MD M17.12 Unilateral primary osteoarthritis, left knee Assessments Date Code Description Provider 07/21/2021 M17.12 Unilateral primary osteoarthriti s, left knee Claudy Devine MD 07/21/2021 Z96.651 Presence of right artificial kne e joint Claudy Devine MD 04/27/2021 M17.12 Unilateral primary osteoarthriti s, left knee Claudy Devine MD Plan of Treatment 07/21/2021 - Claudy Devine MD* M17.12 Unilateral primary osteoarthritis, left knee* Follow up:* PRN for left knee 2-3 month rt knee manuel with xrays( 3 views) with SBF * Z96.651 Presence of right artificial knee joint Functional Status Description No Information Available Mental Status Description No Information Available Referrals Description No Information Available
--- OUTSIDE RECORDS SUMMARY | 2021-09-09 10:59 | CCD ---
Author Author [facility] Organization [facility] Address Unknown Phone Unavailable Care Team Providers Care Multiple Sclerosis Nurse Name Role Phone Joshua Torres MD Unavailable Unavailable Joshua Torres MD Unavailable Unavailable Joshua Torres MD Unavailable Unavailable Joshua Torres MD Unavailable Unavailable Joshua Torres MD Unavailable Unavailable Joshua Torres MD Unavailable Unavailable Joshua Torres MD Unavailable Unavailable Joshua Torres MD Unavailable Unavailable Joshua Torres MD Unavailable Unavailable Joshua Torres MD Unavailable Unavailable Joshua Torres MD Unavailable Unavailable Joshua Torres MD Unavailable Unavailable Joshua Torres MD Unavailable Unavailable Joshua Torres MD Unavailable Unavailable Joshua Torres MD Unavailable Unavailable Joshua Torres MD Unavailable Unavailable Joshua Torres MD Unavailable Unavailable Joshua Torres MD Unavailable Unavailable Joshua Torres MD Unavailable Unavailable Joshua Torres MD Unavailable Unavailable Joshua Torres MD Unavailable Unavailable Joshua Torres MD Unavailable Unavailable Joshua Torres MD Unavailable Unavailable Joshua Torres MD Unavailable Unavailable Joshua Torres MD Unavailable Unavailable Joshua Torres MD Unavailable Unavailable White F Fidencio SHAH Unavailable Unavailable White F Fidencio SHAH Unavailable Unavailable White, F Fidencio Unavailable Unavailable White, F Fidencio SHAH Unavailable Unavailable White F Fidencio SHAH Unavailable Unavailable White F Fidencio SHAH Unavailable Unavailable White F Fidencio SHAH Unavailable Unavailable White F Fidencio SHAH Unavailable Unavailable White, F Fidencio SHAH Unavailable Unavailable White, F Fidencio SHAH Unavailable Unavailable White, F Fidencioalejandro SHAH Unavailable Unavailable White F Fidencio SHAH Unavailable Unavailable White F Fidencio SHAH Unavailable Unavailable White F Fidencioalejandro SHAH Unavailable Unavailable White F Fidencio SHAH Unavailable Unavailable White, F Fidencioalejandro SHAH Unavailable Unavailable White, F Fidencio Unavailable Unavailable White, F Fidencio Unavailable Unavailable White, F Fiedncio Unavailable Unavailable White, F Fidencioalejandro SHAH Unavailable Unavailable White F Fidencio SHAH Unavailable Unavailable White F Fidencio SHAH Unavailable Unavailable White F Fidencio SHAH Unavailable Unavailable White F Fidencio SHAH Unavailable Unavailable White F Fidencio SHAH Unavailable Unavailable White F Fidencio SHAH Unavailable Unavailable White F Fidencio SHAH Unavailable Unavailable White F Fidencio SHAH Unavailable Unavailable White F Fidencio SHAH Unavailable Unavailable White F Fidencio SHAH Unavailable Unavailable White F Fidencio SHAH Unavailable Unavailable White F Fidencio SHAH Unavailable Unavailable White F Fidencio SHAH Unavailable Unavailable White F Fidencio SHAH Unavailable Unavailable Brian F Fidencio SHAH Unavailable Unavailable Brian F Fidencio SHAH Unavailable Unavailable Brian F Fidencio SHAH Unavailable Unavailable Brian F Fidencio SHAH Unavailable Unavailable White F Fidencio SHAH Unavailable Unavailable White F Fidencio SHAH Unavailable Unavailable Brian F Fidencio SHAH Unavailable Unavailable Brian F Fidencio SHAH Unavailable Unavailable Joshua Torres MD Unavailable Unavailable Joshua Torres MD Unavailable Unavailable Brian F Fidencio SHAH Unavailable Unavailable Joshua Torres MD Unavailable Unavailable Brian F Fidencio SHAH Unavailable Unavailable Brian F Fidencio SHAH Unavailable Unavailable Brian F Fidencio SHAH Unavailable Unavailable Brian F Fidencio SHAH Unavailable Unavailable Brian F Fidencio SHAH Unavailable Unavailable Fish, Clara Loco MD Unavailable Unavailable Fish, Clara Loco MD Unavailable Unavailable Fish, Clara Loco MD Unavailable Unavailable Fish, Clara Loco MD Unavailable Unavailable Fish, Clara Loco MD Unavailable Unavailable Fish, Clara Loco MD Unavailable Unavailable Fish, Clara Loco MD Unavailable Unavailable Fish, Clara Loco MD Unavailable Unavailable Fish, Clara Loco MD Unavailable Unavailable Fish, Clara Loco MD Unavailable Unavailable Fish, Clara Loco MD Unavailable Unavailable Fish, Clara Loco MD Unavailable Unavailable Fish, B Claudy SHAH Unavailable Unavailable Fish, B Claudy SHAH Unavailable Unavailable Fish, B Claudy SHAH Unavailable Unavailable Fish, B Claudy SHAH Unavailable Unavailable Fish, B Claudy SHAH Unavailable Unavailable Fish, B Claudy SHAH Unavailable Unavailable Fish, B Claudy SHAH Unavailable Unavailable Fish, B Claudy SHAH Unavailable Unavailable Fish, B Claudy SHAH Unavailable Unavailable Fish, B Claudy SHAH Unavailable Unavailable Fish, B Claudy SHAH Unavailable Unavailable Fish, B Claudy SHAH Unavailable Unavailable Fish, B Claudy SHAH Unavailable Unavailable Fish, B Claudy SHAH Unavailable Unavailable Fish, B Claudy SHAH Unavailable Unavailable Fish, B Claudy SHAH Unavailable Unavailable Fish, B Claudy SHAH Unavailable Unavailable Fish, B Claudy SHAH Unavailable Unavailable Fish, B Claudy SHAH Unavailable Unavailable Fish, B Claudy SHAH Unavailable Unavailable Fish, B Claudy SHAH Unavailable Unavailable Fish, B Claudy SHAH Unavailable Unavailable Fish, B Claudy SHAH Unavailable Unavailable Fish, B Claudy SHAH Unavailable Unavailable Fish, B Claudy SHAH Unavailable Unavailable Fish, B Claudy SHAH Unavailable Unavailable Fish, B Claudy SHAH Unavailable Unavailable Fish, B Claudy SHAH Unavailable Unavailable Fish, B Claudy SHAH Unavailable Unavailable Fish, B Claudy SHAH Unavailable Unavailable Fish, B Claudy SHAH Unavailable Unavailable Fish, B Claudy SHAH Unavailable Unavailable Fish, B Claudy SHAH Unavailable Unavailable Fish, B Claudy SHAH Unavailable Unavailable Fish, B Claudy SHAH Unavailable Unavailable Fish, B Claudy SHAH Unavailable Unavailable Fish, B Claudy SHAH Unavailable Unavailable Fish, B Claudy SHAH Unavailable Unavailable Fish, B Claudy SHAH Unavailable Unavailable Fish, B Claudy SHAH Unavailable Unavailable Fish, B Claudy SHAH Unavailable Unavailable Fish, B Claudy SHAH Unavailable Unavailable Fish, B Claudy SHAH Unavailable Unavailable Fish, B Claudy SHAH Unavailable Unavailable LETTIERE, A MARCO PA Unavailable Unavailable LETTIERE, A MARCO PA Unavailable Unavailable LETTIERE, A MARCO PA Unavailable Unavailable LETTIERE, A MARCO PA Unavailable Unavailable LETTIERE, A MARCO PA Unavailable Unavailable LETTIERE, A MARCO PA Unavailable Unavailable LETTIERE, A MARCO PA Unavailable Unavailable LETTIERE, A MARCO PA Unavailable Unavailable LETTIERE, A MARCO PA Unavailable Unavailable LETTIERE, A MARCO PA Unavailable Unavailable LETTIERE, A MARCO PA Unavailable Unavailable LETTIERE, A MARCO PA Unavailable Unavailable LETTIERE, A MARCO PA Unavailable Unavailable LETTIERE, A MARCO PA Unavailable Unavailable LETTIERE, A MARCO PA Unavailable Unavailable LETTIERE, A MARCO PA Unavailable Unavailable LETTIERE, A MARCO PA Unavailable Unavailable LETTIERE, A MARCO PA Unavailable Unavailable LETTIERE, A MARCO PA Unavailable Unavailable LETTIERE, A MARCO PA Unavailable Unavailable LETTIERE, A MARCO PA Unavailable Unavailable LETTIERE, A MARCO PA Unavailable Unavailable LETTIERE, A MARCO PA Unavailable Unavailable LETTIERE, A MARCO PA Unavailable Unavailable LETTIERE, A MARCO PA Unavailable Unavailable LETTIERE, A MARCO PA Unavailable Unavailable LETTIERE, A MARCO PA Unavailable Unavailable LETTIERE, A MARCO PA Unavailable Unavailable LETTIERE, A MARCO PA Unavailable Unavailable LETTIERE, A MARCO PA Unavailable Unavailable LETTIERE, A MARCO PA Unavailable Unavailable Rosano, Nish PA-C Unavailable Unavailable Rosano, Nish PA-C Unavailable Unavailable Rosano, Nish PA-C Unavailable Unavailable Rosano, Nish PA-C Unavailable Unavailable Rosano, Nish PA-C Unavailable Unavailable Rosano, Nish PA-C Unavailable Unavailable Rosano, Nish PA-C Unavailable Unavailable Rosano, Nish PA-C Unavailable Unavailable Rosano, Nish PA-C Unavailable Unavailable Rosano, Nish PA-C Unavailable Unavailable Rosano, Nish PA-C Unavailable Unavailable Rosano, Nish PA-C Unavailable Unavailable Rosano, Nish PA-C Unavailable Unavailable Rosano, Nish PA-C Unavailable Unavailable Rosano, Nish PA-C Unavailable Unavailable Rosano, Nish PA-C Unavailable Unavailable Rosano, Nish PA-C Unavailable Unavailable Rosano, Nish PA-C Unavailable Unavailable Rosano, Nish PA-C Unavailable Unavailable Rosano, Nish PA-C Unavailable Unavailable Rosano, Nish PA-C Unavailable Unavailable Rosano, Nish PA-C Unavailable Unavailable Rosano, Nish PA-C Unavailable Unavailable Rosano, Nish PA-C Unavailable Unavailable Rosano, Nish PA-C Unavailable Unavailable Campanaro, Mare Steph PA Unavailable Unavailable Campanaro, Mare Steph PA Unavailable Unavailable Campanaro, Mare Steph PA Unavailable Unavailable Campanaro, Mare Steph PA Unavailable Unavailable Campanaro, Mare Steph PA Unavailable Unavailable Campanaro, Mare Steph PA Unavailable Unavailable Campanaro, Mare Steph PA Unavailable Unavailable Campanaro, Mare Steph PA Unavailable Unavailable Campanaro, Mare Steph PA Unavailable Unavailable Campanaro, Mare Steph PA Unavailable Unavailable Campanaro, Mare Steph PA Unavailable Unavailable Campanaro, Mare Steph PA Unavailable Unavailable Campanaro, Mare Steph PA Unavailable Unavailable Campanaro, Mare Steph PA Unavailable Unavailable Campanaro, Mare Steph PA Unavailable Unavailable Campanaro, Mare Steph PA Unavailable Unavailable Campanaro, Mare Steph PA Unavailable Unavailable Aguilar, A Phyl PACK WORKER-BC Unavailable Unavailable Aguilar, A Phyl PACK WORKER-BC Unavailable Unavailable Aguilar, A Phyl PACK WORKER-BC Unavailable Unavailable Aguilar, A Phyl PACK WORKER-BC Unavailable Unavailable Aguilar, A Phyl PACK WORKER-BC Unavailable Unavailable Aguilar, A Phyl PACK WORKER-BC Unavailable Unavailable Aguilar, A Phyl PACK WORKER-BC Unavailable Unavailable Aguilar, A Phyl PACK WORKER-BC Unavailable Unavailable Aguilar, A Phyl PACK WORKER-BC Unavailable Unavailable Aguilar, A Phyl PACK WORKER-BC Unavailable Unavailable Aguilar, A Phyl PACK WORKER-BC Unavailable Unavailable Aguilar, A Phyl PACK WORKER-BC Unavailable Unavailable Aguilar, A Phyl PACK WORKER-BC Unavailable Unavailable Aguilar, A Phyl PACK WORKER-BC Unavailable Unavailable Aguilar, A Phyl PACK WORKER-BC Unavailable Unavailable Aguilar, A Phyl PACK WORKER-BC Unavailable Unavailable Aguilar, A Phyl PACK WORKER-BC Unavailable Unavailable Aguilar, A Phyl PACK WORKER-BC Unavailable Unavailable Aguilar, A Phyl PACK WORKER-BC Unavailable Unavailable Aguilar, A Phyl PACK WORKER-BC Unavailable Unavailable Aguilar, A Phyl PACK WORKER-BC Unavailable Unavailable Aguilar, A Phyl PACK WORKER-BC Unavailable Unavailable Aguilar, A Phyl PACK WORKER-BC Unavailable Unavailable Aguilar, A Phyl PACK WORKER-BC Unavailable Unavailable Aguilar, A Phyl PACK WORKER-BC Unavailable Unavailable Aguilar, A Phyl PACK WORKER-BC Unavailable Unavailable Aguilar, A Phyl PACK WORKER-BC Unavailable Unavailable Aguilar, A Phyl PACK WORKER-BC Unavailable Unavailable Aguilar, A Phyl PACK WORKER-BC Unavailable Unavailable Aguilar, A Phyl PACK WORKER-BC Unavailable Unavailable Aguilar, A Phyl PACK WORKER-BC Unavailable Unavailable Aguilar, A Phyl PACK WORKER-BC Unavailable Unavailable Louis Myrick MD Unavailable Unavailable Louis Myrick MD Unavailable Unavailable Louis Myrick MD Unavailable Unavailable Louis Myrick MD Unavailable Unavailable Louis Myrick MD Unavailable Unavailable Louis Myrick MD Unavailable Unavailable Louis Myrick MD Unavailable Unavailable Louis Myrick MD Unavailable Unavailable Louis Myrick MD Unavailable Unavailable Louis Myrick MD Unavailable Unavailable Louis Myrick MD Unavailable Unavailable Louis Myrick MD Unavailable Unavailable Louis Myrick MD Unavailable Unavailable Louis Myrick MD Unavailable Unavailable Louis Myrick MD Unavailable Unavailable Louis Myrick MD Unavailable Unavailable Louis Myrick MD Unavailable Unavailable Louis Myrick MD Unavailable Unavailable Louis Myrick MD Unavailable Unavailable Louis Myrick MD Unavailable Unavailable Louis Myrick MD Unavailable Unavailable Louis Myrick MD Unavailable Unavailable Louis Myrick MD Unavailable Unavailable Louis Myrick MD Unavailable Unavailable Louis Myrick MD Unavailable Unavailable Louis Myrick MD Unavailable Unavailable Louis Myrick MD Unavailable Unavailable Louis Myrick MD Unavailable Unavailable Louis Myrick MD Unavailable Unavailable Louis Myrick MD Unavailable Unavailable Louis Myrick MD Unavailable Unavailable Louis Myrick MD Unavailable Unavailable Louis Myrick MD Unavailable Unavailable Louis Myrick MD Unavailable Unavailable Louis Myrick MD Unavailable Unavailable Louis Myrick MD Unavailable Unavailable Louis Myrick MD Unavailable Unavailable Louis Myrick MD Unavailable Unavailable Louis Myrick MD Unavailable Unavailable Louis Myrick MD Unavailable Unavailable Louis Myrick MD Unavailable Unavailable Louis Myrick MD Unavailable Unavailable Louis Myrick MD Unavailable Unavailable Louis Myrick MD Unavailable Unavailable Louis Myrick MD Unavailable Unavailable Louis Myrick MD Unavailable Unavailable Louis Myrick MD Unavailable Unavailable Louis Myrick MD Unavailable Unavailable Louis Myrick MD Unavailable Unavailable Louis Myrick MD Unavailable Unavailable Louis Myrick MD Unavailable Unavailable Louis Myrick MD Unavailable Unavailable Louis Myrick MD Unavailable Unavailable Louis Myrick MD Unavailable Unavailable Louis Myrick MD Unavailable Unavailable Louis Myrick MD Unavailable Unavailable Louis Myrick MD Unavailable Unavailable Louis Myrick MD Unavailable Unavailable Louis Myrick MD Unavailable Unavailable Louis Myrick MD Unavailable Unavailable Louis Myrick MD Unavailable Unavailable Louis Myrick MD Unavailable Unavailable Louis Myrick MD Unavailable Unavailable Louis Myrick MD Unavailable Unavailable Louis Myrick MD Unavailable Unavailable Louis Myrick MD Unavailable Unavailable Louis Myrick MD Unavailable Unavailable Louis Myrick MD Unavailable Unavailable Louis Myrick MD Unavailable Unavailable Louis Myrick MD Unavailable Unavailable Louis Myrick MD Unavailable Unavailable Louis Myrick MD Unavailable Unavailable Louis Myrick MD Unavailable Unavailable Louis Myrick MD Unavailable Unavailable Louis Myrick MD Unavailable Unavailable Louis Myrick MD Unavailable Unavailable Louis Myrick MD Unavailable Unavailable Louis Myrick MD Unavailable Unavailable Louis Myrick MD Unavailable Unavailable Louis Myrick MD Unavailable Unavailable Louis Myrick MD Unavailable Unavailable Louis Myrick MD Unavailable Unavailable Louis Myrick MD Unavailable Unavailable Louis Myrick MD Unavailable Unavailable Louis Myrick MD Unavailable Unavailable Louis Myrick MD Unavailable Unavailable Louis Myrick MD Unavailable Unavailable Louis Myrick MD Unavailable Unavailable Louis Myrick MD Unavailable Unavailable Louis Myrick MD Unavailable Unavailable Louis Myrick MD Unavailable Unavailable Louis Myrick MD Unavailable Unavailable Louis Myrick MD Unavailable Unavailable Louis Myrick MD Unavailable Unavailable Louis Myrick MD Unavailable Unavailable Louis Myrick MD Unavailable Unavailable Louis Myrick MD Unavailable Unavailable Louis Myrick MD Unavailable Unavailable Louis Myrick MD Unavailable Unavailable Louis Myrick MD Unavailable Unavailable Louis Myrick MD Unavailable Unavailable Re-disclosure Warning The records that you are about to access may contain information from federally-assisted alcohol or drug abuse programs. If such information is present, then the following federally mandated warning applies: This information has been disclosed to you from records protected by federal confidentiality rules (42 CFR part 2). The federal rules prohibit you from making any further disclosure of this information unless further disclosure is expressly permitted by the written consent of the person to whom it pertains or as otherwise permitted by 42 CFR part 2. A general authorization for the release of medical or other information is NOT sufficient for this purpose. The Federal rules restrict any use of the information to criminally investigate or prosecute any alcohol or drug abuse patient.The records that you are about to access may contain highly sensitive health information, the redisclosure of which is protected by Article 27-F of the [facility] Public Health law. If you continue you may have access to information: Regarding HIV / AIDS; Provided by facilities licensed or operated by the [facility] Office of Mental Health; or Provided by the [facility] Office for People With Developmental Disabilities. If such information is present, then the following [facility] mandated warning applies: This information has been disclosed to you from confidential records which are protected by state law. State law prohibits you from making any further disclosure of this information without the specific written consent of the person to whom it pertains, or as otherwise permitted by law. Any unauthorized further disclosure in violation of state law may result in a fine or halfway sentence or both. A general authorization for the release of medical or other information is NOT sufficient authorization for further disc losure. Family History Family Member Name Family Member Gender Family Member Status Date o f Status Description Data Source(s) Unknown Unknown Problem [facility] ([facility]) Unknown Unknown Problem [facility] ([facility]) Unknown Unknown Problem [facility] ([facility]) Unknown Unknown Problem [facility] ([facility]) Unknown Unknown Problem [facility] ([facility]) Unknown Female Problem [facility] ([facility]) Unknown Female Problem [facility] ([facility]) Unknown Female Problem [facility] ([facility]) Unknown Female Problem [facility] ([facility]) Encounters Encounter Providers Location Date Indications Data Source(s ) Outpatient Attender: MARCO luna 09/02/2021 08:10:00 AM EDT [facility] ([facility]) Outpatient Attender: Steph Jaffedy Ravinder luna 08/18/2021 05:20:00 PM EDT [facility] ([facility]) Outpatient Attender: Nish Mosqueraferrer: Fidencio Torres MD 08/04/2021 11:05:16 AM EDT [facility] OFFICE OUTPATIENT VISIT 15 MINUTES Attender: Claudy Melendez MD Phys ical Therapy 07/21/2021 11:15:00 AM EDT [facility] ([facility]) Outpatient Attender: Nish Mosqueraferrer: Fidencio Torres MD 07/21/2021 10:52:05 AM EDT [facility] Outpatient Attender: Fidencio Reyna 06/16 10:00:00 AM EDT [facility] ([facility] ) Outpatient Attender: Zhou Myrick MDReferrer: Fidencio begum MD 06/14/2021 08:33:40 PM EDT [facility] Recurring Patient Attender: Zhou Myrick MDReferrer: Fidencio padron MD 06/14/2021 01:05:13 PM EDT [facility] Rec[facility] Patient Attender: Zhou Myrick MDReferrer: Fidencio padron MD 06/14/2021 12:47:15 PM EDT [facility] Outpatient Attender: Fidencio Reyna 05/30 01:30:00 PM EDT [facility] ([facility] ) Recurring Patient Attender: Zhou Myrick MDReferrer: Fidencio padron MD 05/26/2021 02:59:10 PM EDT [facility] Outpatient Attender: Jett Aguilar 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 COVID-19 VACCINE Moderna 01/17/2021 12:00:00 AM EST completed [place] Vaccine Series Complete: NOThis Data was Submitted to [facility] Via [employer]. Medications Medication Brand Name Start Date Product Form Dose Route Admi nistrative Instructions Pharmacy Instructions Status Indications Reaction Description Data Source(s) Doxycycline Monohydrate 100 MG Oral Capsule Doxycycline [place] hydrate 09/02/2021 12:00:00 AM EDT ORAL active M [facility]ENT ([facility]) Prednisone 20 MG Oral Tablet Prednisone 09/02/2021 12:00:00 AM EDT active [facility] ([facility]) Codeine Phosphate 2 MG/ML / Guaifenesin 20 MG/ML Oral Soluti on Cheratussin ac 09/02/2021 12:00:00 AM EDT active [facility] ([facility]) Amoxicillin 875 MG / Clavulanate 125 MG Oral Tablet Am oxicillin/Clavulanate Potassium 08/18/2021 12:00:00 AM EDT ORAL completed [facility] ([facility]) 12 HR Guaifenesin 600 MG Extended Release Oral Tablet [Mucin ex] Mucinex 08/18/2021 12:00:00 AM EDT ORAL completed [facility] ([facility]) 60 ACTUAT Albuterol 0.09 MG/ACTUAT Metered Dose Inhaler Albu terol Sulfate HFA 08/18/2021 12:00:00 AM EDT RESPIRATORY completed [facility] ([facility]) Levothyroxine Sodium 0.088 MG Oral Tablet Levothyroxine Sodi um 05/30/2021 12:00:00 AM EDT ORAL active M EDENT ([facility]) Mupirocin 0.02 MG/MG Topical Ointment Mupirocin 05/24/2021 12:00:00 AM EDT active [facility] ([facility] Suprep Bowel Prep Kit Suprep Bowel Prep Kit 07/04/2020 12:00:00 AM EDT completed [facility] ([facility]) Insurance Providers Payer name Policy type / Coverage type Policy ID Covered democrat ID Covered democrat's relationship to [place] Policy [place] Plan Information BCBS OF [place] 306/806 [id number] SP [id number] [employer] [place] 306/806 [id number] SP [id number] [place] Compensation [id number] Self [id number] [place] Workers Compensation [id number] Self [id number] [employer] Workers Compensation [id number] Self [id number] [facility] Med[facility] Part B [id number] Self [id number] [employer] [employer] [place] Workers Compensation [id number] Self [id number] [employer] [place] Workers Compensation [id number] Self [id number] [facility]/ Medigap Part B [id number] Self [id number] [employer] [place] [employer]/MX Medigap Part B [id number] Self [id number] [employer] [place] [employer]/MX Medigap Part B [id number] Self [id number] [employer] [place] [employer]MX Commercial [id number] Self [id number] [employer] [place] [employer] Commercial [id number] Self [id number] [employer] [place] [employer] Commercial [id number] Self [id number] [place] Tr[employer]/MX Commercial [id number] Self 802 Blue Cross Blue Shield P [id number] SELF [id number] Medicare Blue Ppo Commercial [id number] Self 802 Medicare Blue Ppo Commercial VYM [id number] Self VYM [id number] MEDICARE BLUE PPO 306 [id number] SP [id number] Blue Shield MCR Advantage Commercial [id number] Self [id number] Blue Shield MCR Advantage Commercial [id number] Self [id number] Medicare Blue Ppo Commercial [id number] Self [id number] Blue Shield MCR Advantage Commercial [id number] Self [id number] Blue Shield MCR Advantage Commercial [id number] Self V [id number] Blue Shield MCR Advantage Commercial [id number] Self V [id number] EXCELLUS BCBS B [id number] S VYM [id number] Medicare Natl Govt Servic Medicare Primary [id number] Self [id number] Blue Shield Medicare P [id number] SELF [id number] ANSI-Medicare Part B [id number] Medicare Natl Govt Servic Medicare Primary [id number] Self MEDICARE BLUE PPO 306 [id number] SP [id number] EXCELLUS BCBS B [id number] S VYS [id number] EXCELLUS BCBS B [id number] S VYM [id number] [place] P[place] 302/307 [id number] SP [id number] MEDICARE [id number] SP [id number] T BCBS/Blue Card Medigap Part B [id number] Self MEDICARE BLUE PPO 306 [id number] SP [id number] Medicare Natl Govt Servic Medicare Primary [id number] Self [id number] Medicare Natl Govt Servic Medicare Primary [id number] Self [id number] MEDICARE [id number] SP [id number] Medicare Natl Gov't Servi Medicare Primary [id number] Self Medicare Natl Govt Servic Medicare Primary [id number] Self [id number] [place] 306/806 [id number] SP [id number] Medicare Natl Govt Servic Medicare Primary [id number] Self [id number] MEDICARE BLUE PPO 306 [id number] SP [id number] BCBS [place] 306/806 [id number] SP [id number] Medicare Natl Govt Servic Medicare Primary [id number] Self [id number] Problems, Conditions, and Diagnoses Code Display Name Description Problem Type Effective Dates Data Source(s) N95.2 [id number] Vaginal atrophy Problem 04/26/2021 12:00:00 AM EDT eCW1 ([facility]) Surgeries/Procedures Procedure Description Date Indications Data Source(s) OFFICE OUTPATIENT VISIT 25 MINUTES 09/02/2021 12:00:00 AM EDT MED[facility] ([facility] OFFICE OUTPATIENT VISIT 15 MINUTES 08/18/2021 12:00:00 AM EDT MED[facility] ([facility]) DESTRUCTION BENIGN LESIONS UP TO 14 08/08/2021 12:00:0 0 AM EDT MEDENT ([facility]) OFFICE OUTPATIENT VISIT 15 MINUTES 07/21/2021 12:00:00 AM EDT MEDENT ([facility] ) ECG ROUTINE ECG W/LEAST 12 LDS W/I&R 06/16/2021 12:00: 00 AM EDT MEDENT ([facility]) OFFICE OUTPATIENT VISIT 25 MINUTES 06/16/2021 12:00:00 AM EDT MEDENT ([facility]) OFFICE OUTPATIENT VISIT 25 MINUTES 05/30/2021 12:00:00 AM EDT MEDENT ([facility]) OFFICE OUTPATIENT VISIT 25 MINUTES 05/24/2021 12:00:00 AM EDT MEDENT ([facility]) ARTHROCENTESIS ASPIR&/INJECTION MAJOR JT/BURSA 021 12:00:00 AM EDT MEDENT ([facility] ) RADIOLOGIC EXAM KNEE COMPLETE 4/MORE VIEWS 04/27/2021 12:00:00 AM EDT MEDENT ([facility] ) OFFICE OUTPATIENT VISIT 25 MINUTES 04/27/2021 12:00:00 AM EDT MEDENT ([facility]) RADIOLOGIC EXAMINATION KNEE 3 VIEWS 08/22/2020 12:00:0 0 AM EDT MEDENT ([facility]) Colonoscopy 07/14/2020 12:00:00 AM EDT EDENT ([facility]) Endoscopy Upper GI Complex Diagnostic 07/14/2020 12:00 :00 AM EDT MEDENT ([facility], ) Colonoscopy Flexible Proximal To Splenic Flexure Diagnostic W/Or 07/14/2020 12:00:00 AM EDT MEDENT ([facility] Results ID Date Data Source [id number] 08/19/2021 12:00:00 AM [facility] Name Value Range Interpretation Code Description Data Kelli rce(s) Supporting Document(s) SARS-CoV2 Rapid Antigen Negative [facility] This lab was reported by [facility]. ID Date Data Source [id number] 08/04/2021 11:05:16 AM EDT [facility] PCName: Marysherry TaylorOB: 1950rovider: Maggie Bonilla: 08/04/2021 Reason For VisitSgriselda Smith is here today for Left foot. Mary had her second Covid vaccine on 02/14/21. Mary Smith is an established patient here for follow up. Patient presents WB in regular shoes. Patient states that the foot is still swollen but overall is doing well and she was able to put a regular shoe on today. Surgery DOS: 06/29/2021. Surgery Description: Left great toe James osteotomy, second hammertoe correction, and callus debridement. Patient is retired. AssessmentStatus post left great toe James osteotomy, left second toe proximal interphalangeal joint fusion, extensor tendon lengthening and callus debridementOperative date: 06/29/2021Operative indication:1. Left great toe minor bunion recurrence2. Left second hammertoe and callus Plan X-Ray I Foot - 3 views (XRays were ordered, obtained and interpreted today in theoffice. Indication: pain/dysfunction.); Status:Complete; Done: 04Aug2021 Perform:SOS22; Due:18Aug2021; Last Updated By:Mari Ramos; 08/04/2021 10:45:17 AM;Ordered; For:Left foot pain; Ordered By:Nish Bonilla;Weight Bearing Status : Weight bearingLaterality: : Left The patient returns for postoperative exam. The patient is oriented to place and time. Mood is appropriate to situation. Pain level, considering postoperative situation, is appropriate. Wounds are healing well. No evidence of infection, drainage, blood clot, RSD. Swelling as expected. Motor function as expected. Range of motion limited and appropriate to postoperative situation. No pain demonstrated with passive range of motion. Neurovascularly intact. Surgery removedPatient is doing well. 71-year-old female who presents today for reevaluation. They are now 5 weeks and 1 day status post the above-mentioned surgery. She is ambulating full weightbearing in a sneaker at this point without any pain. She states she is doing quite well and she is quite happy.X-rays of the Left foot were ordered, o btained and interpreted today in office. 3 views, AP/lateral/Oblique. Indication: Pain/dysfunction. These show hardware is in good position. No acute osseous abnormalities noted.Plan:At this point the patient will continue to increase her activities as tolerated. She will continue to utilize good supportive shoe wear and continue to ambulate as tolerated. She is doing quite well at this point and lives like [place] hour half away and so we have come to the conclusion of follow-up as needed. She will call us if she has any concerns. Signatures Electronically signed by : Liv Taveras; Aug 04 2021 10:56AM EST (Author) Electronically signed by : Zhou Myrick M.D.; Aug 04 2021 11:05AM EST Name Value Range Interpretation Code Description Data Kelli rce(s) Supporting Document(s) ID Date Data Source [id number] 07/21/2021 10:52:05 AM EDT [facility] PCName: Marysherry TaylorOB: 1950rovider: Maggie Bonilla: 07/14/2021 Reason For VisitSgriselda Smith is here today for Left foot. Mary had her second Covid vaccine on 02/14/21. Mary Smith is here for first post-op appointment. Patient presents WB in a post-op shoe. Patient states that the L foot is fine Surgery DOS: 06/29/2021. Surgery Description: Left great toe James osteotomy, second hammertoe correction, and callus debridement. AssessmentStatus post left great toe James osteotomy, left second toe proximal interphalangeal joint fusion, extensor tendon lengthening and callus debridementOperative date: 06/29/2021Operative indication:1. Left great toe minor bunion recurrence2. Left second hammertoe and callus PlanThe patient returns for postoperative exam. The patient is oriented to place and time. Mood is appropriate to situation. Pain level, considering postoperative situation, is appropriate. Wounds are healing well. No evidence of infection, drainage, blood clot, RSD. Swelling as expected. Motor function as expected. Range of motion limited and appropriate to postoperative situation. No pain demonstrated with passive range of motion. Neurovascularly intact. Surgery removedPatient is doing well. 71-year-old female who presents today for reevaluation. They are now 15 status post the above-mentioned surgery. They are ambulating heel weightbearing in the postop shoe. Pain is minimal. Denies any chest pain or shortness of breath.Plan:This point the patient will continue to utilize the postop shoe and start to increase her weightbearing to full weightbearing for another week and then she can transition into sneakers.The patient follow-up in another 2 to 3 weeks for reevaluation, new x-rays and as long as she is looking well at that time we will let her go. Signatures Electronically signed by : Liv Taveras; Jul 14 2021 11:15AM EST (Author) Electronically signed by : Zhou Myrick M.D.; Jul 21 2021 10:52AM EST Name Value Range Interpretation Code Description Data Kelli rce(s) Supporting Document(s) ID Date Data Source [id number] 07/13/2021 11:47:00 AM EDT MEDENT ([facility]) Name Value Range Interpretation Code Description Data Kelli rce(s) Supporting Document(s) Thyrotropin [Units/volume] in Serum or Plasma by Detec tion limit <= 0.05 mIU/L 0.87 uIU/mL 0.36-3.74 MEDENT ([facility] ) Thyroxine (T4) free [Mass/volume] in Serum or Plasma 0.99 ng/dL 0.76- 1.46 [facility] ([facility]) ID Date Data Source [id number] 06/26/2021 02:35:00 PM EDT [facility] Name Value Range Interpretation Code Description Data [facility] rce(s) Supporting Document(s) SARS coronavirus 2 RdRp gene [Presence] in Respiratory specimen by LISBETH with probe detection Negative [facility] This lab was ordered by [facility] and re ported by [facility]. ID Date Data Source [id number] 06/14/2021 08:33:40 PM EDT [facility] PCName: Mary ClaudiaOB: 1Provider: Abigail Myrick: 06/14/2021 Reason For VisitSgriselda Smith is here today for Left foot. Mary had her second Covid vaccine on 02/14/21. Mary Smith is a new patient. Patient c/o worsening pain in L ankle. Surgery DOS: 09/01/13. Surgery Description: Lt revision subtalar fusion, with nonunion takedown, autogenous bone grafting from left proximal tibia,. (Alley [employer]er). Patient is retired. Results/DataXRays were ordered, obtained and interpreted today in the office. Indication: pain/dysfunction. Side: Left Site: Foot Views: 3 Views AP/Lateral/Internal Oblique Findings: no new fractures or dislocations, the joint remains reduced, No signs of charcot, deformity or event. Assessment 1. Left foot pain (729.5) (M79.672) Plan 1. X-Ray I Foot - 3 views (XRays were ordered, obtained and interpreted today in the office. Indication: pain/dysfunction.); Status:Complete; Done: [id number] Perform:SOS28; Due:28Jun2021; Last Updated By:Ivanna Hernandez; 06/14/2021 1:04:37 PM;Ordered; For:Left foot pain; Ordered By:Zhou Myrick;Weight Bearing Status : Weight bearingLaterality: : Left AssessmentLeft mild bunion recurrence, impingement of the bunion on the second toe, second hammertoeCallus maker, throughout the forefoot, made worse by a pes planovalgus foot deformity, acquiredPlanI did bunion surgery on her, went really well. She's done well for years, but she has developed more calluses. She's developed impingement between the bunion and the second toe. Worse with activity, the wrong shoe. Worse with hard surfaces. Better with rest. Getting worse. She is frustrated, and hopes to do something for her toe and forefoot, prior to going ahead with anything in the form of a knee replacement which she also is thinking of doing.Given her constellation of symptoms I discussed an James osteotomy for the great toe, as well as the second toe correction with PIP fusion and extensor tendon lengthening. Callus debridement intraoperatively, but she'll likely need a department assistant, or automotive production worker to routinely debridement calluses long-term.We'll work on setting her up for surgery at her convenience.We discussed the surgical procedure, including its attendant risks and benefits and the expected postoperative course. Alternatives, including other procedures, nonoperative management, and the respective risks and benefits of each were also discussed at length. The risks discussed include, but are not limited to infection, stiffness, arthritis, continued pain, neurologic compromise, numbness, weakness, bleeding, repeat surgery, blood clots, stiffness, instability, pulmonary embolus, failure to achieve the desired result. Questions were solicited and answered appropriately. There seemed to be a good understanding of the issues.She understood our conversation, asked appropriate questions, illustrated understanding of our discussion, understood recommendations for treatment, and understood associated risks and benefits. Signatures Electronically signed by : Zhou Myrick M.D.; Jun 14 2021 8:33PM EST (Author) Name Value Range Interpretation Code Description Data Kelli rce(s) Supporting Document(s) ID Date Data Source [id number] 05/02/2021 07:39:00 AM EDT MEDENT ([facility]) Name Value Range Interpretation Code Description Data Kelli rce(s) Supporting Document(s) Thyrotropin [Units/volume] in Serum or Plasma by Detec tion limit <= 0.05 mIU/L 4.36 uIU/mL 0.36-3.74 [facility] ID Date Data Source [id number] 05/02/2021 07:39:00 AM EDT MEDENT ([facility]) Name Value Range Interpretation Code Description Data Kelli rce(s) Supporting Document(s) Cholesterol [Mass/volume] in Serum or Plasma 230 mg/dL 131-200 [facility] ([facility]) Triglyceride [Mass/volume] in Serum or Plasma 64 mg/dL 30-150 [facility] ([facility]) Cholesterol in HDL [Mass/volume] in Serum or Plasma 94 mg/dL 35-60 [facility] ([facility]) Cholesterol in LDL [Mass/volume] in Serum or Plasma by calcu lation 123 CALC 50-159 [facility] ([facility]) ID Date Data Source [id number] 05/02/2021 07:39:00 AM EDT MEDENT ([facility]) Name Value Range Interpretation Code Description Data Kelli rce(s) Supporting Document(s) Creatinine 1.1 mg/dL 0.6-1.3 [facility]) Glucose [Mass/volume] in Serum or Plasma 74 mg/dL 74-99 [facility] ([facility]) 100-125 mg/dL PRE-DIABETES/FASTING >126 mg/dL DIABETES/FASTING Urea nitrogen [Mass/volume] in Serum or Plasma 24 mg/dL 7-18 [facility] ([facility]) Potassium [Moles/volume] in Serum or Plasma 4.5 meq/L 3.5-5.1 [facility] ([facility]) Sodium [Moles/volume] in Serum or Plasma 143 meq/L 136-145 [facility] ([facility]) Carbon dioxide, total [Moles/volume] in Serum or Plasma 31 meq/L 21 -32 [facility] ([facility]) Calcium [Mass/volume] in Serum or Plasma 8.8 mg/dL 8.5-10.1 [facility] ([facility]) Chloride [Moles/volume] in Serum or Plasma 105 meq/L 98-107 [facility] ([facility]) Aspartate aminotransferase [Enzymatic activity/volume] in Serum or Plasma 12 U/L 15-37 [facility] ([facility] ) Total Bilirubin 0.3 mg/dL 0.2-1.0 MEDENT ([facility]) Alkaline phosphatase isoenzyme [Units/volume] in Serum or Pl asma 117 mg/dL 46-116 [facility] ([facility]) Albumin [Mass/volume] in Serum or Plasma 3.6 g/dL 3.4-5.0 [facility] ([facility]) Alanine aminotransferase [Enzymatic activity/volume] in Seru m or Plasma 21 U/L 12-78 [facility] ([facility]) Proteinase 3 Ab [Units/volume] in Serum 6.8 g/dL 6.4-8.2 [facility] A/G Ratio 1.13 CALC 1.00-1.90 [facility]) Glomerular filtration rate/1.73 sq M pre dicted among blacks [Volume Rate/Area] in Serum or Plasma by Creatinine-based formula (MDRD) 60 mL/min [facility] ([facility]) <content>CHRONIC KIDNEY DISEASE STAGING PER NKF</content>
<content></content>
<content>STAGE I & II GFR >= 60 NORMAL TO MILDLY DECREASED</content>
<content>STAGE III GFR 30-59 MODERATELY DECREASED</content>
<content>STAGE IV GFR 15-29 SEVERELY DECREASED</content>
<content>STAGE V GFR <15 VERY LITTLE GFR LEFT</content>
<content>ESRD GFR <15 ON STATISTICIAN THEORETICAL</content>
<content></content> Glomerular filtration rate/1.73 sq M pre dicted among non-blacks [Volume Rate/Area] in Serum or Plasma by Creatinine-based formula (MDRD) 49 mL/min [facility] ([facility]) ID Date Data Source [id number] 05/02/2021 07:39:00 AM EDT MEDENT ([facility]) Name Value Range Interpretation Code Description Data Kelli rce(s) Supporting Document(s) Leukocytes [#/volume] in Blood by Automated count 4.8 x10*3/UL 4.1-10 .9 [facility] ([facility]) Erythrocytes [#/volume] in Blood by Automated count 4.47 x10*6/UL 4.2 0-6.30 [facility] Hemoglobin [Mass/volume] in Blood 12.6 g/dL 12.0-18.0 [facility] ([facility]) MCV 84.1 fL 80.0-97.0 [facility]) Hematocrit [Volume Fraction] of Blood by Automated count 37.6 % 3 7.0-51.0 [facility] ([facility]) Erythrocyte distribution width [Ratio] by Automated count 13.2 % 11.6-13.7 [facility] ([facility]) MCH 28.2 pg 26.0-32.0 [facility]) MCHC 33.6 g/dL 31.0-38.0 [facility]) Platelets [#/volume] in Blood by Automated count 220 x10*3/UL 140-440 [facility] ([facility]) MPV 8.5 FL 7.8-11.0 [facility]) Mid % 6.7 % 1.7-9.3 [facility] ([facility]) Lymph % 33.4 % 10.0-58.5 [facility] Neut % 59.9 % 37.0-92.0 [facility]) Mid # 0.3 x10*3/UL 0.1-0.6 [facility] ([facility]) Lymph # 1.6 x10*3/UL 0.6-4.1 [facility] ([facility]) Neut # 2.9 x10*3/UL 2.0-7.8 [facility] ([facility]) ID Date Data Source [facility] DIGITAL / FABY BILATERAL MAMMO SCREENING (Ultraso und if indicated) 04/26/2021 12:00:00 AM EDT eC ([facility]) Name Value Range Interpretation Code Description Data Kelli rce(s) Supporting Document(s) [facility] DIGITAL / FABY BILAT ERAL MAMMO SCREENING (Ultrasound if indicated) [facility] ([facility]) ID Date Data Source [id number] 10/28/2020 07:40:00 AM EST MEDENT ([facility]) Name Value Range Interpretation Code Description Data Kelli rce(s) Supporting Document(s) Thyrotropin [Units/volume] in Serum or Plasma by Detec tion limit <= 0.05 mIU/L 2.70 uIU/mL 0.36-3.74 [facility] ([facility] ) ID Date Data Source [id number] 10/28/2020 07:40:00 AM EST MED[facility] ([facility]) Name Value Range Interpretation Code Description Data Kelli rce(s) Supporting Document(s) Cholesterol [Mass/volume] in Serum or Plasma 260 mg/dL 131-200 [facility] ([facility]) Cholesterol in HDL [Mass/volume] in Serum or Plasma 108 mg/dL 35-60 [facility] ([facility]) Cholesterol in LDL [Mass/volume] in Serum or Plasma by calcu lation 141 CALC 50-159 [facility] ([facility]) Triglyceride [Mass/volume] in Serum or Plasma 56 mg/dL 30-150 [facility] ([facility]) ID Date Data Source [id number] 10/28/2020 07:40:00 AM EST MED[facility] ([facility]) Name Value Range Interpretation Code Description Data Kelli rce(s) Supporting Document(s) Urea nitrogen [Mass/volume] in Serum or Plasma 24 mg/dL 7-18 [facility] ([facility]) Creatinine 1.1 mg/dL 0.6-1.3 [facility] ([facility]) Glucose [Mass/volume] in Serum or Plasma 79 mg/dL 74-99 [facility] ([facility]) 100-125 mg/dL PRE-DIABETES/FASTING >126 mg/dL DIABETES/FASTING Chloride [Moles/volume] in Serum or Plasma 106 meq/L 98-107 [facility] ([facility]) Potassium [Moles/volume] in Serum or Plasma 4.7 meq/L 3.5-5.1 [facility] ([facility]) Sodium [Moles/volume] in Serum or Plasma 145 meq/L 136-145 [facility] ([facility]) Carbon dioxide, total [Moles/volume] in Serum or Plasma 31 meq/L 21 -32 [facility] Alkaline phosphatase isoenzyme [Units/volume] in Serum or Pl asma 112 mg/dL 46-116 [facility] ([facility]) Calcium [Mass/volume] in Serum or Plasma 9.0 mg/dL 8.5-10.1 [facility] ([facility]) Aspartate aminotransferase [Enzymatic activity/volume] in Serum or Plasma 17 U/L 15-37 [facility] ([facility] ) Total Bilirubin 0.5 mg/dL 0.2-1.0 [facility] ([facility]) Alanine aminotransferase [Enzymatic activity/volume] in Seru m or Plasma 21 U/L 12-78 [facility] ([facility]) Proteinase 3 Ab [Units/volume] in Serum 7.1 g/dL 6.4-8.2 [facility] ([facility]) Albumin [Mass/volume] in Serum or Plasma 3.9 g/dL 3.4-5.0 [facility] ([facility]) A/G Ratio 1.22 CALC 1.00-1.90 MED[facility] ([facility]) Glomerular filtration rate/1.73 sq M pre dicted among non-blacks [Volume Rate/Area] in Serum or Plasma by Creatinine-based formula (MDRD) 49 mL/min [facility] ([facility]) Glomerular filtration rate/1.73 sq M pre dicted among blacks [Volume Rate/Area] in Serum or Plasma by Creatinine-based formula (MDRD) 60 mL/min [facility] ([facility]) <content>CHRONIC KIDNEY DISEASE STAGING PER NKF</content>
<content></content>
<content>STAGE I & II GFR >= 60 NORMAL TO MILDLY DECREASED</content>
<content>STAGE III GFR 30-59 MODERATELY DECREASED</content>
<content>STAGE IV GFR 15-29 SEVERELY DECREASED</content>
<content>STAGE V GFR <15 VERY LITTLE GFR LEFT</content>
<content>ESRD GFR <15 ON STATISTICIAN THEORETICAL</content>
<content></content> ID Date Data Source [id number] 10/28/2020 07:40:00 AM EST MEDENT ([facility]) Name Value Range Interpretation Code Description Data Kelli rce(s) Supporting Document(s) Leukocytes [#/volume] in Blood by Automated count 4.0 x10*3/UL 4.1-10 .9 [facility] ([facility]) Hemoglobin [Mass/volume] in Blood 12.7 g/dL 12.0-18.0 [facility] ([facility]) Erythrocytes [#/volume] in Blood by Automated count 4.51 x10*6/UL 4.2 0-6.30 [facility] ([facility]) Hematocrit [Volume Fraction] of Blood by Automated count 37.2 % 3 7.0-51.0 [facility] ([facility]) MCV 82.6 fL 80.0-97.0 [facility] MCH 28.2 pg 26.0-32.0 [facility]) MPV 9.1 FL 7.8-11.0 [facility]) Erythrocyte distribution width [Ratio] by Automated count 13.0 % 11.6-13.7 [facility] ([facility]) MCHC 34.2 g/dL 31.0-38.0 [facility]) Platelets [#/volume] in Blood by Automated count 220 x10*3/UL 140-440 [facility] ([facility]) Neut % 65.7 % 37.0-92.0 [facility] Mid % 6.6 % 1.7-9.3 [facility] Lymph % 27.7 % 10.0-58.5 [facility] Neut # 2.6 x10*3/UL 2.0-7.8 [facility] ([facility]) Mid # 0.3 x10*3/UL 0.1-0.6 [facility] ([facility]) Lymph # 1.1 x10*3/UL 0.6-4.1 [facility] ([facility]) Procedure Social History Code Duration Value Status Description Data Source(s ) Smoking 04/26/2021 12:00:00 AM EDT Never Smoker completed Never S kristen eCW1 ([facility]) Vital Signs ID Date Data Source UNK Name Value Range Interpretation Code Description Data Source(s) Systolic blood pressure 147 mm[Hg] 147 mm[Hg] M EDENT ([facility] Diastolic blood pressure 88 mm[Hg] 88 mm[Hg] [facility] ([facility] Heart rate 85 /min 85 /min [facility] ([facility] Body mass index (BMI) [Ratio] 32.6 kg/m2 32.6 k g/m2 [facility] Body weight 190.00 [lb_av] 190.00 [lb_av] MEDEN T ([facility] Body height 64 [in_i] 64 [in_i] MED[facility] ([facility] [facility]) 5'4" Respiratory rate 18 /min 18 /min [facility] ( [facility] Oxygen saturation in Arterial blood by Pulse oximetry 96 % 96 % [facility] Body temperature 96.6 [degF] 96.6 [degF] [facility] ([facility] Oxygen saturation in Arterial blood by Pulse oximetry 97 % 97 % [facility] ([facility] Body temperature 97.5 [degF] 97.5 [degF] [facility] ([facility] Body weight 180.00 [lb_av] 180.00 [lb_av] [facility] ([facility] Body height 64 [in_i] 64 [in_i] [facility] ([facility]) 5'4" Body mass index (BMI) [Ratio] 30.9 kg/m2 30.9 k g/m2 [facility] ([facility] Systolic blood pressure 112 mm[Hg] 112 mm[Hg] [facility] Diastolic blood pressure 76 mm[Hg] 76 mm[Hg] [facility] ([facility] Heart rate 85 /min 85 /min [facility] ([facility] Respiratory rate 16 /min 16 /min [facility] ( [facility] Diastolic blood pressure 80 mm[Hg] 80 mm[Hg] [facility] ([facility]) Systolic blood pressure 140 mm[Hg] 140 mm[Hg] M [facility] ([facility]) Diastolic blood pressure 78 mm[Hg] 78 mm[Hg] [facility] ([facility]) Systolic blood pressure 168 mm[Hg] 168 mm[Hg] [facility] ([facility]) Body weight 180.00 [lb_av] 180.00 [lb_av] [facility] ([facility]) Body mass index (BMI) [Ratio] 30.0 kg/m2 30.0 k g/m2 [facility] ([facility]) Body height 65 [in_i] 65 [in_i] [facility] ([facility]) 5'5" Heart rate 68 /min 68 /min [facility] ([facility]) Systolic blood pressure 134 mm[Hg] 134 mm[Hg] [facility] ([facility]) Diastolic blood pressure 70 mm[Hg] 70 mm[Hg] [facility] ([facility]) Body height 64 [in_i] 64 [in_i] [facility] ([facility]) 5'4" Body weight 182.00 [lb_av] 182.00 [lb_av] [facility] ([facility]) Body mass index (BMI) [Ratio] 31.2 kg/m2 31.2 k g/m2 [facility] ([facility]) Body weight 181.00 [lb_av] 181.00 [lb_av] [facility] ([facility]) Systolic blood pressure 118 mm[Hg] 118 mm[Hg] M [facility] ([facility]) Diastolic blood pressure 75 mm[Hg] 75 mm[Hg] [facility] ([facility]) Body mass index (BMI) [Ratio] 31.1 kg/m2 31.1 k g/m2 [facility] ([facility]) Heart rate 69 /min 69 /min [facility] ([facility]) Body height 64 [in_i] 64 [in_i] [facility] ([facility]) 5'4" Systolic blood pressure 120 mm[Hg] 120 mm[Hg] M [facility] ([facility]) Diastolic blood pressure 82 mm[Hg] 82 mm[Hg] [facility] ([facility]) Body weight 175.00 [lb_av] 175.00 [lb_av] [facility] ([facility]) Respiratory rate 18 /min 18 /min [facility] ( [facility]) Body mass index (BMI) [Ratio] 30.0 kg/m2 30.0 k g/m2 [facility] ([facility]) Body weight 175.00 [lb_av] 175.00 [lb_av] [facility] ([facility]) Body temperature 96.7 [degF] 96.7 [degF] [facility] ([facility]) Body height 64 [in_i] 64 [in_i] [facility] ([facility]) 5'4" Body weight 178 [lb_av] 178 [lb_av] eCW1 ([facility]) Body weight 80.74 kg 80.74 kg eCW1 ([facility]) Body height 63.75 [in_i] 63.75 [in_i] eCW1 ([facility] hospital) Body mass index (BMI) [Ratio] 30.79 kg/m2 30.79 kg/m2 [facility] ([facility]) Systolic blood pressure 144 mm[Hg] 144 mm[Hg] e CW1 ([facility]) Diastolic blood pressure 76 mm[Hg] 76 mm[Hg] eCW1 ([facility]) Body mass index (BMI) [Ratio] 28.3 kg/m2 28.3 k g/m2 [facility] ([facility]) Systolic blood pressure 130 mm[Hg] 130 mm[Hg] M EDENT ([facility]) Diastolic blood pressure 80 mm[Hg] 80 mm[Hg] [facility] ([facility]) Heart rate 72 /min 72 /min [facility] ([facility]) Body height 64 [in_i] 64 [in_i] [facility] ([facility]) 5'4" Body weight 165.00 [lb_av] 165.00 [lb_av] [facility] T ([facility]) Systolic blood pressure 134 mm[Hg] 134 mm[Hg] M EDENT ([facility], ) Diastolic blood pressure 76 mm[Hg] 76 mm[Hg] [facility] ([facility], ) Heart rate 69 /min 69 /min [facility] ([facility], ) Body height 64 [in_i] 64 [in_i] [facility] ([facility], ) 5'4" Body weight 167.38 [lb_av] 167.38 [lb_av] [facility] T ([facility], ) Body mass index (BMI) [Ratio] 28.7 kg/m2 28.7 k g/m2 [facility] ([facility], ) [place] body weight 120 [lb_av] 120 [lb_av] [facility] T ([facility], ) Body weight 75.921 kg 75.921 kg [facility] ([facility], )
--- OUTSIDE RECORDS SUMMARY | 2021-09-09 10:59 | CCD ---
Continuity of Care Document (CCD) Created on: 06/26/2021 Mary Rees External Reference #: [id number] : [id number] Sex: Female Author Author Mary HENRIQUEZ M.D. Organization Unknown Address [address] [facility] [address] [place] [address] Phone [phone] Care Team Providers Care Top Edge Beveler Name Role Phone Fidencio Henriquez MD AUTM [phone] [facility] AUTM [phone] Problems Active Problems Provider Date Osteoporosis Onset: [...] regularly Allergies, Adverse Reactions, Alerts Active Allergies Reaction Severity Comments Date Atenolol wheezing 06/22/2015 Bactrim dizzyness, nausea, lighthead ed 09/28/2016 Medications Active Medications SIG Qnty Indications Ordering Provide r Date Levothyroxine Sodium 88mcg Tablets 1 tab by mouth every day 90tabs Fidencio Henriquez M.D. 05/30/[address] 1 by mouth every morning 90tabs Red Huerta MD 10/23/2019 Cheratussin ac 100-10mg/5ML Soluti on 10ml po Q4-6 hrs prn cough 473ml Fidencio Henriquez M.D. 08/25 Ventolin HFA 108(90Base) mcg/Act A erosol 2 puffs four times a day as needed 24gm Fidencio Henriquez M.D. 08/20/2019 Bupropion Hydrochloride ER (XL) 300mg Tablets ER 24HR take 1 tablet by mouth every morning 90tabs Norberto Henriquez M.D. 05/25/2019 Acidophilus Lactobacillus Capsule s 1 tab with each meal and at bedtime x 14 days 56caps J01.90 Alla Moncada, [facility] 12/11/2018 Azelastine HCL (Nasal) 0.1% Soluti on use 2 sprays in each nostril twice a day 30ml J20.9 Zari Serrano [facility] 12/28/2016 Fluticasone Propionate 50mcg/Act Suspension 2 sprays each nostril 2 hours before bed 9.900ml J20.9 Zari Serrano, [facility] 12/28/2016 Replens Gel 1 applicator q 3 days Fidencio Henriquez M.D. 09/28/2016 Excedrin Migraine [id number] Tab lets 1-2 po as needed h/a Fidencio Henriquez M.D. 12/23/2015 Vitamin D-3 1000Unit Capsules 2 by mouth daily Fidencio Henriquez M.D. 06/22/2015 Vitamin C 500mg Capsules ever y day Fidencio Henriquez M.D. 06/22/2015 Centrum Silver Adult 50+ Adult 50 Tablets every day Fidencio Henriquez M.D. 06/22/2015 Visine Tears 0.2-0.2-1% Solution Fidencio Henriquez M.D. 06/22/2015 Sertraline HCL 100mg Tablets 1 by mouth every day 90tabs Fidencio Henriquez M.D. 03/14/2015 Immunizations CPT Code Status Date Vaccine Lot # U-Flu Given 09/15/2019 Influenza,Unspecified [id number] Given 04/02/2019 Shingrix Zoster Vaccine (HZV), Recombinant, Subunit, Adjuvanted U-Pneum Given 08/12/2018 Pneumococcal,Unspecified U-PneuC Given 10/15/2017 Prevnar 13 U-PneuC Given 09/05/2016 Prevnar 13 85777 Given 08/11/2014 Influenza Virus Vaccine 69428 Given 08/26/2013 Influenza Virus Vaccine 20883 Given 12/24/2012 Zoster Vaccine 89837 Given 09/30/2012 Influenza Virus Vaccine 34569 Given 08/18/2011 Influenza Virus Vaccine 65616 Given 04/05/2009 Adacel- Tetanus Diphtheria P ertussis [...] Date Facility Test Result H/L Range Note Complete Blood Count 05/02/2021 [facility] Radiologic Technician: [place] [address] [phone] WBC 4.8 x10*3/UL 4.1 - 10.9 RBC [...] 2.0 - 7.8 Comprehensive Chem Profile 05/02/2021 [facility] Radiologic Technician: [place] [address] [phone] Glucose 74 mg/dL 74 - 99 1 [...] mL/min Low >60 2 Lipid Profile 05/02/2021 [facility] Radiologic Technician: [place] [address] [phone] Cholesterol 230 mg/dL High 131 - 200 Triglycerides 64 mg/dL 30 - 150 HDL Cholesterol 94 mg/dL High 35 - 60 LDL (Calculated) 123 CALC 50 - 159 Laboratory test finding 05/02/2021 [facility] Radiologic Technician: [place] [address] [phone] Thyroid Stimulating Hormone 4.36 uIU/mL High 0.3 6 - 3.74 1 100-125 mg/dL PRE-DIABET ES/FASTING >126 mg/dL DIABETES/FASTING 2 CHRONIC KIDNEY DISEASE STAGI NG PER NKF STAGE I & II GFR >= 60 NORMAL TO MILDLY DECREASED STAGE III GFR 30-59 MODERATELY DECREASED STAGE IV GFR 15-29 SEVERELY DECREASED STAGE V GFR <15 VERY LITTLE GFR LEFT ESRD GFR <15 ON PHARMACIST IN CHARGE OWNER Procedures Date Code Description Status 05/30/2021 84584 Office/Outpatient Established Mo d MDM 30-39 Min Completed 07/14/2020 [id number] Colonoscopy Completed 04/22/2020 [id number] Bone Mineral Density Test Comple madyson 04/22/2020 [id number] Mammogram Completed 02/17/2016 [id number] Bone Mineral Density Test Comple [facility] 02/17/2016 [id number] Mammogram Completed 06/23/2015 [id number] Mammogram Completed 01/2015 [id number] Mammogram Completed 02/15/2014 [id number] Bone Mineral Density Test Comple madyson 01/2009 [id number] Colonoscopy Completed 2007 [id number] Colonoscopy Completed Medical Devices Description No Information Available Encounters Type Date Location Provider Dx Diagnosis Office Visit 05/30/2021 1:30p [facility] Fidencio Henriquez M.D. 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 05/30/2021 E03.9 Hypothyroidism, unspecified Norberto Henriquez M.D. 05/30/2021 K21.9 Gastro-esophageal reflux disease without esophagitis Fidencio Henriquez M.D. 05/30/2021 F34.1 Dysthymic disorder Fidencio welch M.D. 05/30/2021 Z96.651 Presence of right artificial kne e joint Fidencio Henriquez M.D. 05/30/2021 H91.13 Presbycusis, bilateral Fidencio Henriquez M.D. 05/30/2021 N95.2 Postmenopausal atrophic vaginiti s Fidencio Henriquez M.D. 05/30/2021 M19.90 Unspecified osteoarthritis, unsp ecified site Fidencio Henriquez M.D. 05/30/2021 J30.9 Allergic rhinitis, unspecified J su Henriquez M.D. 05/30/2021 J45.998 Other asthma Fidencio Henriquez M.D. 05/30/2021 G47.00 Insomnia, unspecified Fidencio padron M.D. 05/30/2021 M25.562 Pain in left knee Fidencio Henriquez M.D. 05/30/2021 R63.5 Abnormal weight gain Fidencio reich M.D. 05/02/2021 E78.5 Hyperlipidemia, unspecified Norberto Henriquez M.D. 05/02/2021 E78.5 Hyperlipidemia, unspecified Lab Schedule 05/02/2021 N18.30 Chronic kidney disease, stage 3 unspecified Fidencio Henriquez M.D. 05/02/2021 N18.30 Chronic kidney disease, stage 3 unspecified Lab Schedule 05/02/2021 E03.9 Hypothyroidism, unspecified Norberto Henriquez M.D. 05/02/2021 E03.9 Hypothyroidism, unspecified Lab Schedule Plan of Treatment Future Appointment(s):* 07/13/2021 8:40 am - Lab Schedule at [facility] * 11/30/2021 8:40 am - Lab Schedule at [facility] * 12/01/2021 1:30 pm - Fidencio Henriquez M.D. at [facility] Functional Status Description No Information Available Mental Status Description No Information Available Referrals Description No Information Available
--- OUTSIDE RECORDS SUMMARY | 2021-09-09 10:59 | CCD | Continuity of Care Document ---
Author Author Mary HENRIQUEZ M.D. Organization Unknown Address [address] [facility] [address] [place] [address] Phone [phone] Care Team Providers Care Manager Of Software Name Role Phone Fidencio Henriquez MD AUTM [phone] [facility] [phone] Problems Active Problems Provider Date Osteoporosis Onset: [...] x 14 days 56caps J01.90 Alla Moncada, [facility] 12/11/2018 Azelastine HCL (Nasal) 0.1% Soluti on use 2 sprays in each nostril twice a day 30ml J20.9 Zari Serrano [facility] 12/28/2016 Fluticasone Propionate 50mcg/Act Suspension 2 sprays each nostril 2 hours before bed 9.900ml J20.9 Zari Serrano, [facility] 12/28/2016 Replens Gel 1 applicator q 3 days Fidencio Henriquez M.D. 09/28/2016 Excedrin Migraine [id number] Tab lets 1-2 po as needed h/a [...] Vaccine Lot # U-Flu Given 09/15/2019 Influenza,Unspecified 24519 Given 04/02/2019 Shingrix Zoster Vaccine (HZV), Recombinant, Subunit, Adjuvanted U-Pneum Given 08/12/2018 Pneumococcal,Unspecified U-PneuC Given 10/15/2017 Prevnar 13 U-PneuC Given 09/05/2016 Prevnar 13 04196 Given 08/11/2014 Influenza Virus Vaccine 38630 Given 08/26/2013 Influenza Virus Vaccine 43551 Given 12/24/2012 Zoster Vaccine 24611 Given 09/30/2012 Influenza Virus Vaccine 51625 Given 08/18/2011 Influenza Virus Vaccine 88182 Given 04/05/2009 Adacel- Tetanus Diphtheria P ertussis [...] H/L Range Note Complete Blood Count 05/02/2021 [facility] General Utility Machine Operator: Dr Red [place] [address] [phone] WBC 4.8 x10*3/UL 4.1 - 10.9 RBC [...] 2.0 - 7.8 Comprehensive Chem Profile 05/02/2021 [facility] General Utility Machine Operator: [place] Red [place] [address] [phone] Glucose 74 mg/dL 74 - 99 1 [...] mL/min Low >60 2 Lipid Profile 05/02/2021 [facility] General Utility Machine Operator: Dr Red [place] [address] [phone] Cholesterol 230 mg/dL High 131 - 200 Triglycerides 64 mg/dL 30 - 150 HDL Cholesterol 94 mg/dL High 35 - 60 LDL (Calculated) 123 CALC 50 - 159 Laboratory test finding 05/02/2021 [facility] General Utility Machine Operator: Dr Red [place] [address] [phone] Thyroid Stimulating Hormone 4.36 uIU/mL High 0.3 6 - 3.74 1 100-125 mg/dL PRE-DIABET ES/FASTING >126 mg/dL DIABETES/FASTING 2 CHRONIC KIDNEY DISEASE STAGI NG PER NKF STAGE I & II GFR >= 60 NORMAL TO MILDLY DECREASED STAGE III GFR 30-59 MODERATELY DECREASED STAGE IV GFR 15-29 SEVERELY DECREASED STAGE V GFR <15 VERY LITTLE GFR LEFT ESRD GFR <15 ON COMMISSIONING SPECIALIST Procedures Date Code Description Status 07/14/2020 [id number] Colonoscopy Completed 04/22/2020 [id number] Bone Mineral Density Test Comple madyson 04/22/2020 [id number] Mammogram Completed 02/17/2016 [id number] Bone Mineral Density Test Comple [facility] 02/17/2016 [id number] Mammogram Completed 06/23/2015 [id number] Mammogram Completed 01/2015 [id number] Mammogram Completed 02/15/2014 [id number] Bone Mineral Density Test Comple [facility] 01/2009 [id number] Colonoscopy Completed 2007 [id number] Colonoscopy Completed Medical Devices Description No Information Available Encounters Description No Information Available Assessments Date Code Description Provider 05/30/2021 E78.5 Hyperlipidemia, unspecified Norberto Henriquez M.D. 05/30/2021 E03.9 Hypothyroidism, unspecified Norberto eHnriquez M.D. 05/30/2021 K21.9 Gastro-esophageal reflux disease without [...] 05/02/2021 N18.30 Chronic kidney disease, stage 3 ghislaineified Fidencio Henriquez M.D. 05/02/2021 N18.30 Chronic kidney disease, stage 3 unspecified Lab Schedule 05/02/2021 E03.9 Hypothyroidism, unspecified Norberto Henriquez M.D. 05/02/2021 E03.9 Hypothyroidism, unspecified Lab Schedule Plan of Treatment Future Appointment(s):* 07/13/2021 8:40 am - Lab Schedule at [facility] * 11/30/2021 8:40 am - Lab Schedule at [facility] * 12/01/2021 1:30 pm - Fidencio Henriquez M.D. at [facility] Functional Status Description No Information Available Mental Status Description No Information Available Referrals Description No Information Available
--- OUTSIDE RECORDS SUMMARY | 2021-09-09 10:59 | CCD | Continuity of Care Document ---
Author Author Mary HENRIQUEZ M.D. Organization Unknown Address [address] [facility] [address] [place] [address] Phone [phone] Care Team Providers Care Cuprous Chloride Operator Name Role Phone Fidencio Henriquez MD AUTM [phone] [facility]M [phone] Problems Active Problems Provider Date Osteoporosis Onset: [...] x 14 days 56caps J01.90 Alla Moncada, [facility] 12/11/2018 Azelastine HCL (Nasal) 0.1% Soluti on use 2 sprays in each nostril twice a day 30ml J20.9 Zari Serrano [facility] 12/28/2016 Fluticasone Propionate 50mcg/Act Suspension 2 sprays each nostril 2 hours before bed 9.900ml J20.9 Zari Serrano, [facility] 12/28/2016 Replens Gel 1 applicator q 3 days Fidencio Henriquez M.D. 09/28/2016 Excedrin Migraine [id number] Tab lets 1-2 po as needed h/a [...] Vaccine Lot # U-Flu Given 09/15/2019 Influenza,Unspecified 97228 Given 04/02/2019 Shingrix Zoster Vaccine (HZV), Recombinant, Subunit, Adjuvanted U-Pneum Given 08/12/2018 Pneumococcal,Unspecified U-PneuC Given 10/15/2017 Prevnar 13 U-PneuC Given 09/05/2016 Prevnar 13 68415 Given 08/11/2014 Influenza Virus Vaccine 60614 Given 08/26/2013 Influenza Virus Vaccine 02613 Given 12/24/2012 Zoster Vaccine 15567 Given 09/30/2012 Influenza Virus Vaccine 36954 Given 08/18/2011 Influenza Virus Vaccine 30096 Given 04/05/2009 Adacel- Tetanus Diphtheria P ertussis [...] H/L Range Note Complete Blood Count 05/02/2021 [facility] Maintenance Parts Technician: [place] [address] [phone] WBC 4.8 x10*3/UL 4.1 - 10.9 RBC [...] 2.0 - 7.8 Comprehensive Chem Profile 05/02/2021 [facility] Maintenance Parts Technician: [place] [address] [phone] Glucose 74 mg/dL 74 - 99 1 [...] mL/min Low >60 2 Lipid Profile 05/02/2021 [facility] Maintenance Parts Technician: [place] Red [place] [address] [phone] Cholesterol 230 mg/dL High 131 - 200 Triglycerides 64 mg/dL 30 - 150 HDL Cholesterol 94 mg/dL High 35 - 60 LDL (Calculated) 123 CALC 50 - 159 Laboratory test finding 05/02/2021 [facility] Maintenance Parts Technician: [place] Red [place] [address] [phone] Thyroid Stimulating Hormone 4.36 uIU/mL High 0.3 6 - 3.74 1 100-125 mg/dL PRE-DIABET ES/FASTING >126 mg/dL DIABETES/FASTING 2 CHRONIC KIDNEY DISEASE STAGI NG PER NKF STAGE I & II GFR >= 60 NORMAL TO MILDLY DECREASED STAGE III GFR 30-59 MODERATELY DECREASED STAGE IV GFR 15-29 SEVERELY DECREASED STAGE V GFR <15 VERY LITTLE GFR LEFT ESRD GFR <15 ON ENERGY DERIVATIVES TRADER Procedures Date Code Description Status 06/16/2021 22189 Office/Outpatient Established Mo d MDM 30-39 Min Completed 06/16/2021 78624 EKG/Interpretation & Report Comp leted 05/30/2021 82758 Office/Outpatient Established Mo d MDM 30-39 Min Completed 07/14/2020 [id number] Colonoscopy Completed 04/22/2020 [id number] Bone Mineral Density Test Comple madyson 04/22/2020 [id number] Mammogram Completed 02/17/2016 [id number] Bone Mineral Density Test Comple [facility] 02/17/2016 [id number] Mammogram Completed 06/23/2015 [id number] Mammogram Completed 01/2015 [id number] Mammogram Completed 02/15/2014 [id number] Bone Mineral Density Test Comple [facility] 01/2009 [id number] Colonoscopy Completed 2007 [id number] Colonoscopy Completed Medical Devices Description No Information Available Encounters Type Date Location Provider Dx Diagnosis Office Visit 06/16/2021 10:00a [facility] M.[facility]. Z01.818 Encounter for other preprocedural examin [...] without status migrainosus Office Visit 05/30/2021 1[facility]p [facility] 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 06/16/2021 M79.672 Pain in left foot Fidencio Henriquez M.D. 06/16/2021 Z96.651 Presence of right artificial kne e joint Fidencio Henriquez M.D. 06/16/2021 K21.9 Gastro-esophageal reflux disease without esophagitis Fidencio Henriquez M.D. 06/16/2021 E03.9 Hypothyroidism, unspecified Norberto Henriquez M.D. 06/16/2021 E78.5 Hyperlipidemia, unspecified Norberto Henriquez M.D. 06/16/2021 H91.13 Presbycusis, bilateral Fidencio Henriquez M.D. 06/16/2021 J30.9 Allergic rhinitis, unspecified Blair Henriquez M.D. 06/16/2021 J45.998 Other asthma Fidencio Henriquez M.D. 06/16/2021 G47.00 Insomnia, unspecified Fidencio padron M.D. 06/16/2021 N18.30 Chronic kidney disease, stage 3 ghislaineified Fidencio Henriquez M.D. 06/16/2021 G43.909 Migraine, unspecifie d, not intractable, without status migrainosus Fidencio Henriquez M.D. 05/30/2021 E78.5 Hyperlipidemia, unspecified Norberto Hneriquez M.D. 05/30/2021 E03.9 Hypothyroidism, unspecified Norberto Henriquez M.D. 05/30/2021 K21.9 Gastro-esophageal reflux disease without esophagitis Fidencio Henriquez M.D. 05/30/2021 F34.1 Dysthymic disorder Fidencio welch M.D. 05/30/2021 Z96.651 Presence of right artificial kne e rose Henriquez M.D. 05/30/2021 H91.13 Presbycusis, bilateral Fidencio Henriquez M.D. 05/30/2021 N95.2 Postmenopausal atrophic vaginiti s Fidencio Henriquez M.D. 05/30/2021 M19.90 Unspecified osteoarthritis, unsp ecified site Fidencio Henriquez M.D. 05/30/2021 J30.9 Allergic rhinitis, unspecified Blair Henriquez M.D. 05/30/2021 J45.998 Other asthma Fidencio [...] 07/13/2021 8:40 am - Lab Schedule at [facility] * 11/30/2021 8:40 am - Lab Schedule at [facility] * 12/01/2021 1:30 pm - Fidencio Henriquez M.D. at [facility] 05/30/2021 - Fidencio Henriquez M.D.* E78.5 Hyperlipidemia, unspecified * E03.9 Hypothyroidism, [...]
--- OUTSIDE RECORDS SUMMARY | 2021-09-09 10:59 | CCD | Continuity of Care Document ---
Author Author Lab Schedule, Mary Francis Organization Unknown Address [address] [address] Phone Unavailable Care Team Providers Care Telecommunications Clerk Name Role Phone Fidencio Torres MD AUTM [phone] [facility] [phone] Problems Active Problems Provider Date Osteoporosis Onset: [...] x 14 days 56caps J01.90 Alla Moncada, [facility] 12/11/2018 Azelastine HCL (Nasal) 0.1% Soluti on use 2 sprays in each nostril twice a day 30ml J20.9 Zari Serrano [facility] 12/28/2016 Fluticasone Propionate 50mcg/Act Suspension 2 sprays each nostril 2 hours before bed 9.900ml J20.9 Zari Serrano, [facility] 12/28/2016 Replens Gel 1 applicator q 3 days Fidencio Torres M.D. 09/28/2016 Excedrin Migraine [phone] Tab lets 1-2 po as needed h/a [...] Vaccine Lot # U-Flu Given 09/15/2019 Influenza,Unspecified 59018 Given 04/02/2019 Shingrix Zoster Vaccine (HZV), Recombinant, Subunit, Adjuvanted U-Pneum Given 08/12/2018 Pneumococcal,Unspecified U-PneuC Given 10/15/2017 Prevnar 13 U-PneuC Given 09/05/2016 Prevnar 13 [id number] Given 08/11/2014 Influenza Virus Vaccine 98214 Given 08/26/2013 Influenza Virus Vaccine 65938 Given 12/24/2012 Zoster Vaccine 85290 Given 09/30/2012 Influenza Virus Vaccine 81127 Given 08/18/2011 Influenza Virus Vaccine 38711 Given 04/05/2009 Adacel- Tetanus Diphtheria P ertussis [...] H/L Range Note Complete Blood Count 05/02/2021 [facility] Pneumatic Jack Operator: [place] [address] [phone] WBC 4.8 x10*3/UL 4.1 - 10.9 RBC [...] 2.0 - 7.8 Comprehensive Chem Profile 05/02/2021 [facility] Pneum[facility] Jack Operator: [place] [address] [phone] Glucose 74 mg/dL 74 - 99 1 [...] mL/min Low >60 2 Lipid Profile 05/02/2021 [facility] Pneumatic Jack Operator: [place] [address] [phone] Cholesterol 230 mg/dL High 131 - 200 Triglycerides 64 mg/dL 30 - 150 HDL Cholesterol 94 mg/dL High 35 - 60 LDL (Calculated) 123 CALC 50 - 159 Laboratory test finding 05/02/2021 [facility] Pneumatic Jack Operator: [place] [address] [phone] Thyroid Stimulating Hormone 4.36 uIU/mL High 0.3 6 - 3.74 1 100-125 mg/dL PRE-DIABET ES/FASTING >126 mg/dL DIABETES/FASTING 2 CHRONIC KIDNEY DISEASE STAGI NG PER NKF STAGE I & II GFR >= 60 NORMAL TO MILDLY DECREASED STAGE III GFR 30-59 MODERATELY DECREASED STAGE IV GFR 15-29 SEVERELY DECREASED STAGE V GFR <15 VERY LITTLE GFR LEFT ESRD GFR <15 ON AUDIO TECHNICIAN Procedures Date Code Description Status 06/16/2021 20831 Office/Outpatient Established Mo d MDM 30-39 Min Completed 06/16/2021 85272 EKG/Interpretation & Report Comp leted 05/30/2021 84163 Office/Outpatient Established Mo d MDM 30-39 Min Completed 07/14/2020 [id number] Colonoscopy Completed 04/22/2020 [id number] Bone Mineral Density Test Comple [facility] 04/22/2020 [id number] Mammogram Completed 02/17/2016 [id number] Bone Mineral Density Test Comple [facility] 02/17/2016 [id number] Mammogram Completed 06/23/2015 [id number] Mammogram Completed 01/2015 [id number] Mammogram Completed 02/15/2014 [id number] Bone Mineral Density Test Comple [facility] 01/2009 [id number] Colonoscopy Completed 2007 [id number] Colonoscopy Completed Medical Devices Description No Information Available Encounters Type Date Location Provider Dx Diagnosis Office Visit 06/16/2021 10:00a [facility] M.D. Z01.818 Encounter for other preprocedural [...] without status migrainosus Office Visit 05/30/2021 [facility] E78.5 Hyperlipidemia, unspecified E03.9 Hypothyroidism, [...] Presence of right artificial kne e rose Torres M.D. 05/30/2021 H91.13 Presbycusis, bilateral Fidencio [...] 11/30/2021 8:40 am - Lab Schedule at [facility] * 12/01/2021 1:30 pm - [facility] 05/30/2021 - Fidencio Torres M.D.* E78.5 [...]
--- OUTSIDE RECORDS SUMMARY | 2021-09-09 10:59 | CCD | Continuity of Care Document ---
Author Author Lab Schedule, [facility] Organization Unknown Address [address] [address] Phone Unavailable Care Team Providers Care Lieutenant Shift Supervisor Name Role Phone Fidencio Torres MD AUTM [phone] [facility] [phone] Problems Active Problems Provider Date Osteoporosis Onset: [...] x 14 days 56caps J01.90 Alla Moncada, [facility] 12/11/2018 Azelastine HCL (Nasal) 0.1% Soluti on use 2 sprays in each nostril twice a day 30ml J20.9 Zari Serrano [facility] 12/28/2016 Fluticasone Propionate 50mcg/Act Suspension 2 sprays each nostril 2 hours before bed 9.900ml J20.9 Zari Serrano, [facility] 12/28/2016 Replens Gel 1 applicator q 3 days Fidencio Torres M.D. 09/28/2016 Excedrin Migraine [phone] Tab lets 1-2 po as needed h/a [...] Vaccine Lot # U-Flu Given 09/15/2019 Influenza,Unspecified 23665 Given 04/02/2019 Shingrix Zoster Vaccine (HZV), Recombinant, Subunit, Adjuvanted U-Pneum Given 08/12/2018 Pneumococcal,Unspecified U-PneuC Given 10/15/2017 Prevnar 13 U-PneuC Given 09/05/2016 Prevnar 13 58150 Given 08/11/2014 Influenza Virus Vaccine 67710 Given 08/26/2013 Influenza Virus Vaccine 88430 Given 12/24/2012 Zoster Vaccine 30399 Given 09/30/2012 Influenza Virus Vaccine 08917 Given 08/18/2011 Influenza Virus Vaccine 74936 Given 04/05/2009 Adacel- Tetanus Diphtheria P ertussis [...] H/L Range Note Complete Blood Count 05/02/2021 [facility] Sausage Cutter: [place] [address] [phone] WBC 4.8 x10*3/UL 4.1 - 10.9 RBC [...] 2.0 - 7.8 Comprehensive Chem Profile 05/02/2021 [facility] Sausage Cutter: [place] [address] [phone] Glucose 74 mg/dL 74 - 99 1 [...] mL/min Low >60 2 Lipid Profile 05/02/2021 [facility] Sausage Cutter: [place] [address] [phone] Cholesterol 230 mg/dL High 131 - 200 Triglycerides 64 mg/dL 30 - 150 HDL Cholesterol 94 mg/dL High 35 - 60 LDL (Calculated) 123 CALC 50 - 159 Laboratory test finding 05/02/2021 [facility] Sausage Cutter: [place] [address] [phone] Thyroid Stimulating Hormone 4.36 uIU/mL High 0.3 6 - 3.74 1 100-125 mg/dL PRE-DIABET ES/FASTING >126 mg/dL DIABETES/FASTING 2 CHRONIC KIDNEY DISEASE STAGI NG PER NKF STAGE I & II GFR >= 60 NORMAL TO MILDLY DECREASED STAGE III GFR 30-59 MODERATELY DECREASED STAGE IV GFR 15-29 SEVERELY DECREASED STAGE V GFR <15 VERY LITTLE GFR LEFT ESRD GFR <15 ON SOCIAL SCIENCE MANAGER Procedures Date Code Description Status 06/16/2021 33698 Office/Outpatient Established Mo d MDM 30-39 Min Completed 06/16/2021 33859 EKG/Interpretation & Report Comp leted 05/30/2021 87119 Office/Outpatient Established Mo d MDM 30-39 Min Completed 07/14/2020 [id number] Colonoscopy Completed 04/22/2020 [id number] Bone Mineral Density Test Comple [facility] 04/22/2020 [id number] Mammogram Completed 02/17/2016 [id number] Bone Mineral Density Test Comple [facility] 02/17/2016 [id number] Mammogram Completed 06/23/2015 [id number] Mammogram Completed 01/2015 [id number] Mammogram Completed 02/15/2014 [id number] Bone Mineral Density Test Comple [facility] 01/2009 [id number] Colonoscopy Completed 2007 [id number] Colonoscopy Completed Medical Devices Description No Information Available Encounters Type Date Location Provider Dx Diagnosis Office Visit 06/16/2021 10:00a [facility] M.D. Z01.818 Encounter for [...] without status migrainosus Office Visit 05/30/2021 1[facility]p [facility] E78.5 Hyperlipidemia, unspecified E03.9 Hypothyroidism, [...] Norberto Torres M.D. 05/30/2021 E03.9 Hypothyroidism, unspecified Nobrerto Torres M.D. 05/30/2021 K21.9 Gastro-esophageal reflux disease [...] 11/30/2021 8:40 am - Lab Schedule at [facility] * 12/01/2021 1:30 pm - F[facility] 05/30/2021 - Fidencio Torres M.D.* E78.5 [...]
--- NOTE | 2021-09-09 11:33 | REP ---
INDICATION: CHEST PAIN. COMPARISON: 12/21/2019 TECHNIQUE: Portable FINDINGS: The technique utilized in obtaining the radiograph has magnified the cardiac silhouette and accentuated the interstitial markings. The superior mediastinal structures are midline. The cardiac silhouette is unremarkable in size, shape, and position. The diaphragmatic surfaces of the lungs are regular, and the costophrenic angles are clear. The pulmonary leo are clear. The imaged osseous structures are intact. IMPRESSION: There is no acute cardiopulmonary disease. <Electronically signed by Allan Oviedo > 09/09/21 1127
[2021-09-09 11:34] LABS: BASO % 0.5 % (0.0-1.0); EOS % 0.1 % (0.0-3.0); HEMATOCRIT 41.7 % (36.0-47.0); HEMOGLOBIN 13.2 g/dl (12.0-15.5); LYMPH # 1.4 10^3/uL (1.5-5.0); LYMPH % 15.7 % (24.0-44.0); MEAN CORPUSCULAR HEMOGLOBIN 28.1 pg (27.0-33.0); MEAN CORPUSCULAR HGB CONC 31.7 g/dl (32.0-36.5); MEAN CORPUSCULAR VOLUME 88.7 fl (80.0-96.0); MONO # 0.3 10^3/uL (0.0-0.8); MONO % 3.9 % (2.0-8.0); NEUTROPHILS # 6.7 10^3/uL (1.5-8.5); NEUTROPHILS % 77.7 % (36.0-66.0); PLATELET COUNT, AUTOMATED 250 10^3/uL (150-450); WHITE BLOOD COUNT 8.6 10^3/uL (4.0-10.0)
[2021-09-09] MEDS ORDERED: DOXY-443 (11:34)
[2021-09-09] MEDS ORDERED: ASPI325T56 PO (11:34)
[2021-09-09] MEDS ORDERED: PRED20TA (11:34)
[2021-09-09] MEDS ORDERED: VIRT1SOL13 (11:34)
--- OUTSIDE RECORDS SUMMARY | 2021-09-09 11:40 | CCD ---
Author Author [facility] Organization [facility] Address Unknown Phone Unavailable Care Team Providers Care Public Health Technologist Name Role Phone Joshua Torres MD Unavailable [...] Unavailable Joshua Torres MD Unavailable Unavailable Joshua oTrres MD Unavailable Unavailable Joshua Torres MD Unavailable [...] Fidencio SHAH Unavailable Unavailable White, F Fidencioalejandro SHHA Unavailable Unavailable White, F Fidencio Unavailable Unavailable White, F Fidencio Unavailable Unavailable White, F Fidencio Unavailable Unavailable White, F Fidencioalejandro SHAH Unavailable [...] B Claudy SHAH Unavailable Unavailable Fish, B Caludy SHAH Unavailable Unavailable Fish, B Claudy SHAH [...] Steph PA Unavailable Unavailable Aguilar, A Phyl SENIOR JAVA J2EE DEVELOPER-BC Unavailable Unavailable Aguilar, A Phyl SENIOR JAVA J2EE DEVELOPER-BC Unavailable Unavailable Aguilar, A Phyl SENIOR JAVA J2EE DEVELOPER-BC Unavailable Unavailable Aguilar, A Phyl SENIOR JAVA J2EE DEVELOPER-BC Unavailable Unavailable Aguilar, A Phyl SENIOR JAVA J2EE DEVELOPER-BC Unavailable Unavailable Aguilar, A Phyl SENIOR JAVA J2EE DEVELOPER-BC Unavailable Unavailable Aguilar, A Phyl SENIOR JAVA J2EE DEVELOPER-BC Unavailable Unavailable Aguilar, A Phyl SENIOR JAVA J2EE DEVELOPER-BC Unavailable Unavailable Aguilar, A Phyl SENIOR JAVA J2EE DEVELOPER-BC Unavailable Unavailable Aguilar, A Phyl SENIOR JAVA J2EE DEVELOPER-BC Unavailable Unavailable Aguilar, A Phyl SENIOR JAVA J2EE DEVELOPER-BC Unavailable Unavailable Aguilar, A Phyl SENIOR JAVA J2EE DEVELOPER-BC Unavailable Unavailable Aguilar, A Phyl SENIOR JAVA J2EE DEVELOPER-BC Unavailable Unavailable Aguilar, A Phyl SENIOR JAVA J2EE DEVELOPER-BC Unavailable Unavailable Aguilar, A Phyl SENIOR JAVA J2EE DEVELOPER-BC Unavailable Unavailable Aguilar, A Phyl SENIOR JAVA J2EE DEVELOPER-BC Unavailable Unavailable Aguilar, A Phyl SENIOR JAVA J2EE DEVELOPER-BC Unavailable Unavailable Aguilar, A Phyl SENIOR JAVA J2EE DEVELOPER-BC Unavailable Unavailable Aguilar, A Phyl SENIOR JAVA J2EE DEVELOPER-BC Unavailable Unavailable Aguilar, A Phyl SENIOR JAVA J2EE DEVELOPER-BC Unavailable Unavailable Aguilar, A Phyl SENIOR JAVA J2EE DEVELOPER-BC Unavailable Unavailable Aguilar, A Phyl SENIOR JAVA J2EE DEVELOPER-BC Unavailable Unavailable Aguilar, A Phyl SENIOR JAVA J2EE DEVELOPER-BC Unavailable Unavailable Aguilar, A Phyl SENIOR JAVA J2EE DEVELOPER-BC Unavailable Unavailable Aguilar, A Phyl SENIOR JAVA J2EE DEVELOPER-BC Unavailable Unavailable Aguilar, A Phyl SENIOR JAVA J2EE DEVELOPER-BC Unavailable Unavailable Aguilar, A Phyl SENIOR JAVA J2EE DEVELOPER-BC Unavailable Unavailable Aguilar, A Phyl SENIOR JAVA J2EE DEVELOPER-BC Unavailable Unavailable Aguilar, A Phyl SENIOR JAVA J2EE DEVELOPER-BC Unavailable Unavailable Aguilar, A Phyl SENIOR JAVA J2EE DEVELOPER-BC Unavailable Unavailable Aguilar, A Phyl SENIOR JAVA J2EE DEVELOPER-BC Unavailable Unavailable Aguilar, A Phyl SENIOR JAVA J2EE DEVELOPER-BC Unavailable Unavailable Louis Myrick MD Unavailable Unavailable [...] is protected by Article 27-F of the [facility] Public Health law. If you continue you may have access to information: Regarding HIV / AIDS; Provided by facilities licensed or operated by the [facility] Office of Mental Health; or Provided by the [facility] Office for People With Developmental Disabilities. If such information is present, then the following [facility] mandated warning applies: This information has [...] law may result in a fine or group home sentence or both. A general authorization for [...] MARCO luna 09/02/2021 08:10:00 AM EDT [facility] ([facility]) Outpatient Attender: Steph Jaffedy Ravinder luna 08/18/2021 05:20:00 PM EDT [facility] ([facility]) Outpatient Attender: Nish Mosqueraferrer: Fidencio Torres MD 08/04/2021 11:05:16 AM EDT [facility] OFFICE OUTPATIENT VISIT 15 MINUTES Attender: Claudy Melendez MD Phys ical Therapy 07/21/2021 11:15:00 AM EDT [facility] ([facility]) Outpatient Attender: Nish Mosqueraferrer: Fidencio Torres MD 07/21/2021 10:52:05 AM EDT [facility] Outpatient Attender: Fidencio Reyna 06/16 10:00:00 AM EDT [facility] ([facility] ) Outpatient Attender: Zhou Myrick MDReferrer: Fidencio begum MD 06/14/2021 08:33:40 PM EDT [facility] Recurring Patient Attender: Zhou Myrick MDReferrer: Fidencio padron MD 06/14/2021 01:05:13 PM EDT [facility] Rec[facility]ring Patient Attender: Zhou Myrick MDReferrer: Fidencio padron MD 06/14/2021 12:47:15 PM EDT [facility] Outpatient Attender: Fidencio Reyna 05/30 01:30:00 PM EDT [facility] ([facility] ) Recurring Patient Attender: Zhou Myrick MDReferrer: Fidencio padron MD 05/26/2021 02:59:10 PM EDT [facility] Outpatient Attender: Jett Aguilar [facility] Main Office 0 05/24/2021 01:30:00 PM EDT [facility] Attender: Claudy Melendez MD Physical Therapy 04/27/2021 0 1:15:00 PM EDT [facility] ([facility]) ( GYNANN) [facility] 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 COVID-19 VACCINE Moderna 01/17/2021 12:00:00 AM EST completed [facility] Vaccine Series Complete: NOThis Data was Submitted to [facility] Via [employer]. Medications Medication Brand Name Start Date Product Form Dose Route Admi nistrative Instructions Pharmacy Instructions Status Indications Reaction Description Data Source(s) Doxycycline Monohydrate 100 MG Oral Capsule Doxycycline Bent hydrate 09/02/2021 12:00:00 AM EDT ORAL active M EDENT ([facility]) Prednisone 20 MG Oral Tablet Prednisone 09/02/2021 12:00:00 AM EDT active [facility] ([facility], [facility]) Codeine Phosphate 2 MG/ML / Guaifenesin 20 MG/ML Oral Soluti on Cheratussin ac 09/02/2021 12:00:00 AM EDT active [facility] ([facility]) Amoxicillin 875 MG / Clavulanate 125 MG Oral Tablet Am oxicillin/Clavulanate Potassium 08/18/2021 12:00:00 AM EDT ORAL completed [facility] ([facility]) 12 HR Guaifenesin 600 MG Extended Release Oral Tablet [Mucin ex] Mucinex 08/18/2021 12:00:00 AM EDT ORAL completed [facility] ([facility]) 60 ACTUAT Albuterol 0.09 MG/ACTUAT Metered Dose Inhaler Albu terol Sulfate HFA 08/18/2021 12:00:00 AM EDT RESPIRATORY completed [facility] ([facility]) Levothyroxine Sodium 0.088 MG Oral Tablet Levothyroxine Sodi um 05/30/2021 12:00:00 AM EDT ORAL active M EDENT ([facility]) Mupirocin 0.02 MG/MG Topical Ointment Mupirocin 05/24/2021 12:00:00 AM EDT active [facility] ([facility] Suprep Bowel Prep Kit Suprep Bowel Prep Kit 07/04/2020 12:00:00 AM EDT completed MED[facility] ([facility]) Insurance Providers Payer name Policy type / Coverage type Policy ID Covered alliance party ID Covered alliance party's relationship to [place] Policy [place] Plan Information BCBS OF [place] 306/806 [id number] SP [id number] BCBS OF [place] SEAYN 306/806 [id number] SP [id number] Pma Ins (WC) Workers Compensation [id number] Self [id number] Pma Ins (WC) Workers Compensation [id number] Self [id number] Pma Ins (WC) Workers Compensation [id number] Self [id number] [facility] Medigap Part B [id number] Self [id number] Pma Ins (WC) Workers Compensation [id number] Self W [id number] Pma Ins (WC) Workers Compensation [id number] Self W [id number] [facility]/ Medigap Part B [id number] Self [id number] [place] Medigap Part B [id number] Self [id number] [place] Trad/[place] Medigap Part B [id number] Self [id number] [place] Commercial [id number] Self [id number] [place] Tr[place] Commercial [id number] Self [id number] [place] Tr[place] Commercial [id number] Self [id number] [place] Trad/MX Commercial [id number] Self 802 Blue Cross Blue Shield P [id number] SELF [id number] Medicare Blue Ppo Commercial [id number] Self 802 Medicare Blue Ppo Commercial VYM [id number] Self VYM [id number] MEDICARE BLUE PPO [id number] SP [id number] Blue Shield MCR Advantage Commercial [id number] Self V [id number] Blue Shield MCR Advantage Commercial [id number] Self V [id number] Medicare Blue Ppo Commercial [id number] Self [id number] Blue Shield MCR Advantage Commercial [id number] Self [id number] Blue Shield MCR Advantage Commercial [id number] Self V [id number] Blue Shield MCR Advantage Commercial [id number] Self V [id number] EXCELLUS BCBS B [id number] S VYM [id number] Medicare Natl Govt Servic Medicare Primary [id number] Self [id number] Blue Shield Medicare P [id number] SELF [id number] ANSI-Medicare Part B [id number] Medicare Natl Govt Servic Medicare Primary [id number] Self MEDICARE BLUE PPO 306 [id number] SP [id number] [place] BCBS B [id number] S VYS [id number] EXCELLUS BCBS B [id number] S VYM [id number] BCBS [place] PPO 302/307 [id number] SP [id number] MEDICARE [id number] SP [id number] T BCBS/Blue Card Medigap Part B [id number] Self MEDICARE BLUE PPO 306 [id number] SP [id number] Medicare Natl Govt Servic Medicare Primary [id number] Self [id number] Medicare Natl Govt Servic Medicare Primary [id number] Self [id number] MEDICARE [id number] SP [id number] Medicare Natl Gov't Servi Medicare Primary [id number] Self Medicare Natl Govt Servic Medicare Primary [id number] Self [id number] [place]BS [place] 306/806 [id number] SP [id number] Medicare Natl Govt Servic Medicare Primary [id number] Self [id number] MEDICARE BLUE PPO 306 [id number] SP [id number] BCBS [place] 306/806 [id number] SP [id number] Medicare Natl Govt Servic Medicare Primary [id number] Self [id number] Problems, Conditions, and Diagnoses Code Display Name Description Problem Type Effective Dates Data Source(s) N95.2 [id number] Vaginal atrophy Problem 04/26/2021 12:00:00 AM EDT eCW1 ([facility]) Surgeries/Procedures Procedure Description Date Indications Data Source(s) OFFICE OUTPATIENT VISIT 25 MINUTES 09/02/2021 12:00:00 AM EDT [facility] ([facility], [facility]) OFFICE OUTPATIENT VISIT 15 MINUTES 08/18/2021 12:00:00 AM EDT [facility] ([facility] DESTRUCTION BENIGN LESIONS UP TO 14 08/08/2021 12:00:0 0 AM EDT [facility] ([facility]) OFFICE OUTPATIENT VISIT 15 MINUTES 07/21/2021 12:00:00 AM EDT [facility] ([facility] ECG ROUTINE ECG W/LEAST 12 LDS W/I&R 06/16/2021 12:00: 00 AM EDT [facility] ([facility]) OFFICE OUTPATIENT VISIT 25 MINUTES 06/16/2021 12:00:00 AM EDT [facility] ([facility]) OFFICE OUTPATIENT VISIT 25 MINUTES 05/30/2021 12:00:00 AM EDT [facility] ([facility]) OFFICE OUTPATIENT VISIT 25 MINUTES 05/24/2021 12:00:00 AM EDT MED[facility] ([facility]) ARTHROCENTESIS ASPIR&/INJECTION MAJOR JT/BURSA 021 12:00:00 AM EDT [facility] ([facility] ) RADIOLOGIC EXAM KNEE COMPLETE 4/MORE VIEWS 04/27/2021 12:00:00 AM EDT [facility] ([facility] ) OFFICE OUTPATIENT VISIT 25 MINUTES 04/27/2021 12:00:00 AM EDT MEDENT ([facility]) RADIOLOGIC EXAMINATION KNEE 3 VIEWS 08/22/2020 12:00:0 0 AM EDT MED[facility] ([facility]) Colonoscopy 07/14/2020 12:00:00 AM EDT EDENT ([facility]) Endoscopy Upper GI Complex Diagnostic 07/14/2020 12:00 :00 AM EDT MED[facility] ([facility], ) Colonoscopy Flexible Proximal To Splenic Flexure Diagnostic W/Or 07/14/2020 12:00:00 AM EDT MED[facility] ([facility] ) Results ID Date Data Source [id number] 08/19/2021 12:00:00 AM [facility] Name Value Range Interpretation Code Description Data Kelli rce(s) Supporting Document(s) SARS-CoV2 Rapid Antigen Negative [facility] This lab was reported by [facility]. ID Date Data Source [id number] 08/04/2021 11:05:16 AM EDT [facility] Marysherry TaylorOB: 1950rovider: Maggie [...] rce(s) Supporting Document(s) ID Date Data Source [id number] 07/21/2021 10:52:05 AM EDT [facility] Mary[facility] TaylorOB: 1950rovider: Maggie [...] rce(s) Supporting Document(s) ID Date Data Source [id number] 07/13/2021 11:47:00 AM EDT MEDENT ([facility]) Name Value Range Interpretation Code Description Data Kelli rce(s) Supporting Document(s) Thyrotropin [Units/volume] in Serum or Plasma by Detec tion limit <= 0.05 mIU/L 0.87 uIU/mL 0.36-3.74 [facility] ([facility] ) Thyroxine (T4) free [Mass/volume] in Serum or Plasma 0.99 ng/dL 0.76- 1.46 [facility] ([facility]) ID Date Data Source [id number] 06/26/2021 02:35:00 PM EDT [facility] Name Value Range Interpretation Code Description Data [facility] rce(s) Supporting Document(s) SARS coronavirus 2 RdRp gene [Presence] in Respiratory specimen by LISBETH with probe detection Negative [facility] This lab was ordered by [facility] and re ported by [facility]. ID Date Data Source [id number] 06/14/2021 08:33:40 PM EDT [facility] Mary ClaudiaOB: 1Provider: Abigail Myrick: 06/14/2021 Reason For VisitSgriselda Smith is here today for Left foot. Mary had her second Covid vaccine on 02/14/21. Mary Smith is a new patient. Patient c/o worsening pain in L ankle. Surgery DOS: 09/01/13. Surgery Description: Lt revision subtalar fusion, with nonunion takedown, autogenous bone grafting from left proximal tibia,. 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 Results/DataXRays were ordered, obtained [...] in the office. Indication: pain/dysfunction.); Status:Complete; Done: [id number] Perform:SOS28; Due:28Jun2021; Last Updated By:Ivanna Hernandez; 06/14/2021 [...] debridement intraoperatively, but she'll likely need a blasting contract miner, or conduit helper to routinely debridement calluses long-term.We'll work on [...] rce(s) Supporting Document(s) ID Date Data Source [id number] 05/02/2021 07:39:00 AM EDT MEDENT ([facility]) Name Value Range Interpretation Code Description Data Kelli rce(s) Supporting Document(s) Thyrotropin [Units/volume] in Serum or Plasma by Detec tion limit <= 0.05 mIU/L 4.36 uIU/mL 0.36-3.74 [facility] ID Date Data Source [id number] 05/02/2021 07:39:00 AM EDT [facility] ([facility]) Name Value Range Interpretation Code Description Data Kelli rce(s) Supporting Document(s) Cholesterol [Mass/volume] in Serum or Plasma 230 mg/dL 131-200 [facility] ([facility]) Triglyceride [Mass/volume] in Serum or Plasma 64 mg/dL 30-150 [facility] ([facility]) Cholesterol in HDL [Mass/volume] in Serum or Plasma 94 mg/dL 35-60 [facility] ([facility]) Cholesterol in LDL [Mass/volume] in Serum or Plasma by calcu lation 123 CALC 50-159 [facility] ([facility]) ID Date Data Source [id number] 05/02/2021 07:39:00 AM EDT [facility] ([facility]) Name Value Range Interpretation Code Description Data Kelli rce(s) Supporting Document(s) Creatinine 1.1 mg/dL 0.6-1.3 [facility] Glucose [Mass/volume] in Serum or Plasma 74 mg/dL 74-99 [facility] ([facility]) 100-125 mg/dL PRE-DIABETES/FASTING >126 mg/dL DIABETES/FASTING Urea nitrogen [Mass/volume] in Serum or Plasma 24 mg/dL 7-18 [facility] ([facility]) Potassium [Moles/volume] in Serum or Plasma 4.5 meq/L 3.5-5.1 [facility] ([facility]) Sodium [Moles/volume] in Serum or Plasma 143 meq/L 136-145 [facility] ([facility]) Carbon dioxide, total [Moles/volume] in Serum or Plasma 31 meq/L 21 -32 [facility] ([facility]) Calcium [Mass/volume] in Serum or Plasma 8.8 mg/dL 8.5-10.1 [facility] ([facility]) Chloride [Moles/volume] in Serum or Plasma 105 meq/L 98-107 [facility] ([facility]) Aspartate aminotransferase [Enzymatic activity/volume] in Serum or Plasma 12 U/L 15-37 [facility] ([facility] ) Total Bilirubin 0.3 mg/dL 0.2-1.0 [facility] ([facility]) Alkaline phosphatase isoenzyme [Units/volume] in Serum or Pl asma 117 mg/dL 46-116 [facility] ([facility]) Albumin [Mass/volume] in Serum or Plasma 3.6 g/dL 3.4-5.0 [facility] ([facility]) Alanine aminotransferase [Enzymatic activity/volume] in Seru m or Plasma 21 U/L 12-78 [facility] ([facility]) Proteinase 3 Ab [Units/volume] in Serum 6.8 g/dL 6.4-8.2 [facility] A/G Ratio 1.13 CALC 1.00-1.90 [facility] Glomerular filtration rate/1.73 sq M pre dicted among blacks [Volume Rate/Area] in Serum or Plasma by Creatinine-based formula (MDRD) 60 mL/min [facility] ([facility]) <content>CHRONIC KIDNEY DISEASE STAGING PER NKF</content>
<content></content>
<content>STAGE I & II GFR >= 60 NORMAL TO MILDLY DECREASED</content>
<content>STAGE III GFR 30-59 MODERATELY DECREASED</content>
<content>STAGE IV GFR 15-29 SEVERELY DECREASED</content>
<content>STAGE V GFR <15 VERY LITTLE GFR LEFT</content>
<content>ESRD GFR <15 ON POWER SYSTEM ELECTRICAL ENGINEER</content>
<content></content> Glomerular filtration rate/1.73 sq M pre dicted among non-blacks [Volume Rate/Area] in Serum or Plasma by Creatinine-based formula (MDRD) 49 mL/min [facility] ([facility]) ID Date Data Source [id number] 05/02/2021 07:39:00 AM EDT [facility] ([facility]) Name Value Range Interpretation Code Description Data Kelli rce(s) Supporting Document(s) Leukocytes [#/volume] in Blood by Automated count 4.8 x10*3/UL 4.1-10 .9 [facility] ([facility]) Erythrocytes [#/volume] in Blood by Automated count 4.47 x10*6/UL 4.2 0-6.30 [facility] Hemoglobin [Mass/volume] in Blood 12.6 g/dL 12.0-18.0 [facility] ([facility]) MCV 84.1 fL 80.0-97.0 [facility] Hematocrit [Volume Fraction] of Blood by Automated count 37.6 % 3 7.0-51.0 [facility] ([facility]) Erythrocyte distribution width [Ratio] by Automated count 13.2 % 11.6-13.7 [facility] ([facility]) MCH 28.2 pg 26.0-32.0 [facility] MCHC 33.6 g/dL 31.0-38.0 [facility] Platelets [#/volume] in Blood by Automated count 220 x10*3/UL 140-440 [facility] ([facility]) MPV 8.5 FL 7.8-11.0 [facility] Mid % 6.7 % 1.7-9.3 [facility] Lymph % 33.4 % 10.0-58.5 [facility] Neut % 59.9 % 37.0-92.0 [facility] Mid # 0.3 x10*3/UL 0.1-0.6 [facility] ([facility]) Lymph # 1.6 x10*3/UL 0.6-4.1 [facility] ([facility]) Neut # 2.9 x10*3/UL 2.0-7.8 [facility] ([facility]) ID Date Data Source [facility] DIGITAL / FABY BILATERAL MAMMO SCREENING (Ultraso und if indicated) 04/26/2021 12:00:00 AM EDT eC ([facility]) Name Value Range Interpretation Code Description Data Kelli rce(s) Supporting Document(s) [facility] DIGITAL / FABY BILAT ERAL MAMMO SCREENING (Ultrasound if indicated) [facility] ([facility]) ID Date Data Source [id number] 10/28/2020 07:40:00 AM EST [facility] ([facility]) Name Value Range Interpretation Code Description Data Kelli rce(s) Supporting Document(s) Thyrotropin [Units/volume] in Serum or Plasma by Detec tion limit <= 0.05 mIU/L 2.70 uIU/mL 0.36-3.74 [facility] ([facility] ) ID Date Data Source [id number] 10/28/2020 07:40:00 AM EST [facility] ([facility]) Name Value Range Interpretation Code Description Data Kelli rce(s) Supporting Document(s) Cholesterol [Mass/volume] in Serum or Plasma 260 mg/dL 131-200 [facility] ([facility]) Cholesterol in HDL [Mass/volume] in Serum or Plasma 108 mg/dL 35-60 [facility] ([facility]) Cholesterol in LDL [Mass/volume] in Serum or Plasma by calcu lation 141 CALC 50-159 [facility] ([facility]) Triglyceride [Mass/volume] in Serum or Plasma 56 mg/dL 30-150 [facility] ([facility]) ID Date Data Source [id number] 10/28/2020 07:40:00 AM EST [facility] ([facility]) Name Value Range Interpretation Code Description Data Kelli rce(s) Supporting Document(s) Urea nitrogen [Mass/volume] in Serum or Plasma 24 mg/dL 7-18 [facility] ([facility]) Creatinine 1.1 mg/dL 0.6-1.3 [facility] ([facility] Glucose [Mass/volume] in Serum or Plasma 79 mg/dL 74-99 [facility] ([facility]) 100-125 mg/dL PRE-DIABETES/FASTING >126 mg/dL DIABETES/FASTING Chloride [Moles/volume] in Serum or Plasma 106 meq/L 98-107 [facility] ([facility]) Potassium [Moles/volume] in Serum or Plasma 4.7 meq/L 3.5-5.1 [facility] ([facility]) Sodium [Moles/volume] in Serum or Plasma 145 meq/L 136-145 [facility] ([facility]) Carbon dioxide, total [Moles/volume] in Serum or Plasma 31 meq/L 21 -32 [facility] Alkaline phosphatase isoenzyme [Units/volume] in Serum or Pl asma 112 mg/dL 46-116 [facility] ([facility]) Calcium [Mass/volume] in Serum or Plasma 9.0 mg/dL 8.5-10.1 [facility] ([facility]) Aspartate aminotransferase [Enzymatic activity/volume] in Serum or Plasma 17 U/L 15-37 [facility] ([facility] ) Total Bilirubin 0.5 mg/dL 0.2-1.0 [facility] ([facility]) Alanine aminotransferase [Enzymatic activity/volume] in Seru m or Plasma 21 U/L 12-78 [facility] ([facility]) Proteinase 3 Ab [Units/volume] in Serum 7.1 g/dL 6.4-8.2 [facility] ([facility]) Albumin [Mass/volume] in Serum or Plasma 3.9 g/dL 3.4-5.0 [facility] ([facility]) A/G Ratio 1.22 CALC 1.00-1.90 [facility] ([facility]) Glomerular filtration rate/1.73 sq M pre dicted among non-blacks [Volume Rate/Area] in Serum or Plasma by Creatinine-based formula (MDRD) 49 mL/min [facility] ([facility]) Glomerular filtration rate/1.73 sq M pre dicted among blacks [Volume Rate/Area] in Serum or Plasma by Creatinine-based formula (MDRD) 60 mL/min [facility] ([facility]) <content>CHRONIC KIDNEY DISEASE STAGING PER NKF</content>
<content></content>
<content>STAGE I & II GFR >= 60 NORMAL TO MILDLY DECREASED</content>
<content>STAGE III GFR 30-59 MODERATELY DECREASED</content>
<content>STAGE IV GFR 15-29 SEVERELY DECREASED</content>
<content>STAGE V GFR <15 VERY LITTLE GFR LEFT</content>
<content>ESRD GFR <15 ON POWER SYSTEM ELECTRICAL ENGINEER</content>
<content></content> ID Date Data Source [id number] 10/28/2020 07:40:00 AM EST [facility] ([facility]) Name Value Range Interpretation Code Description Data Kelli rce(s) Supporting Document(s) Leukocytes [#/volume] in Blood by Automated count 4.0 x10*3/UL 4.1-10 .9 [facility] ([facility]) Hemoglobin [Mass/volume] in Blood 12.7 g/dL 12.0-18.0 [facility] ([facility]) Erythrocytes [#/volume] in Blood by Automated count 4.51 x10*6/UL 4.2 0-6.30 [facility] ([facility]) Hematocrit [Volume Fraction] of Blood by Automated count 37.2 % 3 7.0-51.0 [facility] ([facility]) MCV 82.6 fL 80.0-97.0 [facility] MCH 28.2 pg 26.0-32.0 [facility] ([facility] MPV 9.1 FL 7.8-11.0 [facility] ([facility] Erythrocyte distribution width [Ratio] by Automated count 13.0 % 11.6-13.7 [facility] ([facility]) MCHC 34.2 g/dL 31.0-38.0 [facility] ([facility]) Platelets [#/volume] in Blood by Automated count 220 x10*3/UL 140-440 [facility] ([facility]) Neut % 65.7 % 37.0-92.0 [facility]) Mid % 6.6 % 1.7-9.3 [facility] Lymph % 27.7 % 10.0-58.5 [facility]) Neut # 2.6 x10*3/UL 2.0-7.8 [facility] ([facility]) Mid # 0.3 x10*3/UL 0.1-0.6 [facility] ([facility]) Lymph # 1.1 x10*3/UL 0.6-4.1 [facility] ([facility]) Procedure Social History Code Duration Value Status Description Data Source(s ) Smoking 04/26/2021 12:00:00 AM EDT Never Smoker completed Never S kristen eCW1 ([facility]) Vital Signs ID Date Data Source UNK Name Value Range Interpretation Code Description Data Source(s) Body weight 190.00 [lb_av] 190.00 [lb_av] MED[facility] T ([facility], [facility]) Systolic blood pressure 147 mm[Hg] 147 mm[Hg] M EDENT ([facility], [facility]) Diastolic blood pressure 88 mm[Hg] 88 mm[Hg] [facility] ([facility], [facility]) Body height 64 [in_i] 64 [in_i] [facility], [facility]) 5'4" Body mass index (BMI) [Ratio] 32.6 kg/m2 32.6 k g/m2 [facility] ([facility], [facility]) Heart rate 85 /min 85 /min [facility] ([facility], [facility]) Respiratory rate 18 /min 18 /min [facility] ( [facility], [facility]) Oxygen saturation in Arterial blood by Pulse oximetry 96 % 96 % [facility] ([facility], [facility]) Body temperature 96.6 [degF] 96.6 [degF] [facility] ([facility], [facility]) Oxygen saturation in Arterial blood by Pulse oximetry 97 % 97 % [facility] ([facility], [facility]) Body temperature 97.5 [degF] 97.5 [degF] [facility] ([facility], [facility]) Body weight 180.00 [lb_av] 180.00 [lb_av] MED[facility] T ([facility], [facility]) Body height 64 [in_i] 64 [in_i] [facility] ([facility], [facility]) 5'4" Body mass index (BMI) [Ratio] 30.9 kg/m2 30.9 k g/m2 [facility] ([facility], [facility]) Systolic blood pressure 112 mm[Hg] 112 mm[Hg] [facility], [facility]) Diastolic blood pressure 76 mm[Hg] 76 mm[Hg] [facility] ([facility], [facility]) Heart rate 85 /min 85 /min [facility] ([facility], [facility]) Respiratory rate 16 /min 16 /min [facility] ( [facility], [facility]) Systolic blood pressure 140 mm[Hg] 140 mm[Hg] [facility] Diastolic blood pressure 80 mm[Hg] 80 mm[Hg] [facility] ([facility]) Systolic blood pressure 168 mm[Hg] 168 mm[Hg] [facility] Body weight 180.00 [lb_av] 180.00 [lb_av] MED[facility] T ([facility]) Diastolic blood pressure 78 mm[Hg] 78 mm[Hg] [facility] Body height 65 [in_i] 65 [in_i] [facility] ([facility]) 5'5" Body mass index (BMI) [Ratio] 30.0 kg/m2 30.0 k g/m2 [facility] ([facility]) Systolic blood pressure 134 mm[Hg] 134 mm[Hg] [facility] Diastolic blood pressure 70 mm[Hg] 70 mm[Hg] [facility] Heart rate 68 /min 68 /min [facility] ([facility]) Body height 64 [in_i] 64 [in_i] [facility] ([facility]) 5'4" Body weight 182.00 [lb_av] 182.00 [lb_av] MEDEN T ([facility]) Body mass index (BMI) [Ratio] 31.2 kg/m2 31.2 k g/m2 [facility] ([facility]) Body weight 181.00 [lb_av] 181.00 [lb_av] MED[facility] T ([facility]) Heart rate 69 /min 69 /min [facility] ([facility]) Body height 64 [in_i] 64 [in_i] [facility] ([facility]) 5'4" Body mass index (BMI) [Ratio] 31.1 kg/m2 31.1 k g/m2 [facility] ([facility]) Systolic blood pressure 118 mm[Hg] 118 mm[Hg] M EDENT ([facility]) Diastolic blood pressure 75 mm[Hg] 75 mm[Hg] [facility] ([facility]) Systolic blood pressure 120 mm[Hg] 120 mm[facility]Hg] [facility] Diastolic blood pressure 82 mm[Hg] 82 mm[Hg] [facility] ([facility]) Body weight 175.00 [lb_av] 175.00 [lb_av] MED[facility] T ([facility]) Respiratory rate 18 /min 18 /min [facility] ( [facility]) Body weight 175.00 [lb_av] 175.00 [lb_av] MED[facility] T ([facility] ) Body mass index (BMI) [Ratio] 30.0 kg/m2 30.0 k g/m2 [facility] ([facility] ) Body temperature 96.7 [degF] 96.7 [degF] [facility] ([facility]) Body height 64 [in_i] 64 [in_i] [facility] ([facility]) 5'4" Body weight 178 [lb_av] 178 [lb_av] eCW1 ([facility]) Body weight 80.74 kg 80.74 kg eCW1 ([facility]) Body height 63.75 [in_i] 63.75 [in_i] eCW1 ([facility] Body mass index (BMI) [Ratio] 30.79 kg/m2 30.79 kg/m2 [facility] ([facility]) Systolic blood pressure 144 mm[Hg] 144 mm[Hg] e CW1 ([facility]) Diastolic blood pressure 76 mm[Hg] 76 mm[Hg] eCW1 ([facility]) Body mass index (BMI) [Ratio] 28.3 kg/m2 28.3 k g/m2 [facility] ([facility]) Systolic blood pressure 130 mm[Hg] 130 mm[Hg] M EDENT ([facility]) Diastolic blood pressure 80 mm[Hg] 80 mm[Hg] [facility] ([facility]) Heart rate 72 /min 72 /min [facility] ([facility]) Body height 64 [in_i] 64 [in_i] [facility] ([facility]) 5'4" Body weight 165.00 [lb_av] 165.00 [lb_av] MEDEN T ([facility]) Systolic blood pressure 134 mm[Hg] 134 mm[Hg] M EDENT ([facility], ) Diastolic blood pressure 76 mm[Hg] 76 mm[Hg] [facility] ([facility], ) Heart rate 69 /min 69 /min [facility] ([facility], ) Body height 64 [in_i] 64 [in_i] [facility] ([facility], ) 5'4" Body weight 167.38 [lb_av] 167.38 [lb_av] MEDEN T ([facility], ) Body mass index (BMI) [Ratio] 28.7 kg/m2 28.7 k g/m2 [facility] ([facility], ) [place] body weight 120 [lb_av] 120 [lb_av] MEDEN T ([facility], ) Body weight 75.921 kg 75.921 kg [facility] ([facility], )
[2021-09-09 11:45] LABS: INR 0.83; PROTHROMBIN TIME 11.8 SECONDS (12.7-14.5)
[2021-09-09 12:10] LABS: ALBUMIN 3.7 GM/DL (3.2-5.2); ALT/SGPT 23 U/L (12-78); BILIRUBIN,DIRECT 0.1 MG/DL (0.0-0.2); BILIRUBIN,TOTAL 0.3 MG/DL (0.2-1.0); BLOOD UREA NITROGEN 26 MG/DL (7-18); CALCIUM LEVEL 9.2 MG/DL (8.8-10.2); CARBON DIOXIDE LEVEL 29 MEQ/L (21-32); CHLORIDE LEVEL 106 MEQ/L (98-107); CK-MB VALUE MASS < 1.0 NG/ML (<3.6); CPK CREATINE PHOSPHOKINASE 33 U/L (26-192); CREATININE FOR GFR 1.05 MG/DL (0.55-1.30); GLOMERULAR FILTRATION RATE 55.2 (>39); GLUCOSE, FASTING 83 MG/DL (70-100); LIPASE 103 U/L (73-393); MB/CK RELATIVE INDEX 3.03 (< OR =4); POTASSIUM SERUM 4.3 MEQ/L (3.5-5.1); SODIUM LEVEL 140 MEQ/L (136-145); TOTAL PROTEIN 7.3 GM/DL (6.4-8.2); TROPONIN I < 0.02 NG/ML (< 0.10)
[2021-09-09 12:26] LABS: RSV AMPLIFICATION NEGATIVE (NEGATIVE)
[2021-09-09] MEDS ORDERED: ISOVUE-370 76% 100ML VIAL As Ordered ONE (12:36)
--- NOTE | 2021-09-09 13:11 | REP ---
INDICATION: CP/r/o PE COMPARISON: 12/29/2019 a standard contrast-enhanced chest CT TECHNIQUE: CT angiography of the chest attention pulmonary arteries after the intravenous administration of 75 cc Isovue 370 FINDINGS: There is excellent visualization of the pulmonary arterial vasculature. No focal filling defects are present that would be considered consistent with acute pulmonary emboli. There no pleural or pericardial effusions. There is no mediastinal or hilar adenopathy. The thoracic aorta is within normal limits although seen in limited fashion. The imaged upper abdomen is essentially unchanged compared to the prior abdominal CT of 03/23/2019. There is a stable cyst in the posterior segment of the right lobe of the liver. The imaged osseous structures are within normal limits for the patient's age. Evaluation of the lung leo shows no new abnormal nodules, masses, or opacities. IMPRESSION: CT findings are within normal limits. <Electronically signed by Allan Oviedo > 09/09/21 [id number]
--- NOTE | 2021-09-09 18:20 | ECGEPIP ---
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
--- NOTE | 2021-09-09 18:25 | ECGEPIP ---
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
[2021-09-09 18:34] LABS: CK-MB VALUE MASS < 1.0 NG/ML (<3.6); CPK CREATINE PHOSPHOKINASE 36 U/L (26-192); MB/CK RELATIVE INDEX 2.78 (< OR =4); TROPONIN I < 0.02 NG/ML (< 0.10)
[2021-09-09 18:44] VITALS: BP 149/72
== END 2021-09-09 19:07 | disposition home or self-care (01) ==
LOC: M ED 10:48
DX: R07.9 Chest pain, unspecified (principal); R05.9 Cough, unspecified; I10 Essential (primary) hypertension; K21.9 Gastro-esophageal reflux disease without esophagitis; E03.9 Hypothyroidism, unspecified; F32.A Depression, unspecified; Z88.1 Allergy status to other antibiotic agents; Z88.2 Allergy status to sulfonamides; Z88.8 Allergy status to other drugs, medicaments and biological substances; Z79.899 Other long term (current) drug therapy
CPT/HCPCS: 36415; 71045; 71275; 80048; 80076; 82550; 82553; 83690; 84484; 85025; 85610; 87631; 93005; 93041; 94760; 99285; Q9967

== ENCOUNTER → 2022-01-11 | Outpatient (REF) | payer MEDICARE ==
[~2022-01-11] MED LIST changes: +ASPI325T56 PO; +DOXY-443; +PRED20TA; +VIRT1SOL13
== END ==
LOC: M LAB REF 16:13
PROVIDERS: ATTEND Nurse Practitioner Adult Health
DX: R30.0 Dysuria (principal)

== ENCOUNTER 2022-04-16 17:51 | Inpatient (IN) | payer MEDICARE ==
[~2022-04-16] VITALS: Ht 162.6 cm; Wt 84.1 kg
[~2022-04-16 17:51] MED LIST changes: +CODE118L; -VIRT1SOL13
[2022-04-16] MEDS ORDERED: MORPHINE 10 MG/ML 1ML VIAL IM ONE (18:50)
[2022-04-16] MEDS ORDERED: ONDANSETRON 4MG ORAL DISINTEGRATING TAB PO ONE (18:50)
[2022-04-16] MEDS ORDERED: LIDOCAINE 5% (LIDODERM) PATCH TD ONE (18:50)
[2022-04-16] MEDS ORDERED: **NOTE PATIENT COMMENT** MISC XX SCH (21:00)
[2022-04-16 21:52] LABS: RSV AMPLIFICATION NEGATIVE (NEGATIVE)
[2022-04-16] MEDS ORDERED: ACETAMINOPHEN TAB 650MG DOSE (2X325MG) PO PRN (22:40)
[2022-04-16] MEDS ORDERED: MOM 30ML SUSPENSION UDC PO PRN (22:40)
[2022-04-16] MEDS ORDERED: ONDANSETRON 4MG/2ML VIAL IV PRN (22:40)
[2022-04-16] MEDS: MORPHINE 2 MG/ML 1ML VIAL IV PRN (23:08)
[2022-04-17] MEDS ORDERED: CRAN400C PO (00:11)
[2022-04-17] MEDS ORDERED: BUPR300T92 PO (00:11)
[2022-04-17] MEDS ORDERED: REFR0.5D8 OU (00:11)
[2022-04-17] MEDS ORDERED: SYNT88TA2 PO (00:11)
[2022-04-17] MEDS ORDERED: D200CAP3 PO (00:11)
[2022-04-17] MEDS ORDERED: VITMTA PO (00:11)
[2022-04-17] MEDS ORDERED: ZOLO100T PO (00:11)
[2022-04-17] MEDS ORDERED: ESTR62CR PV (00:11)
[2022-04-17] MEDS ORDERED: ALBU8.5H INH (00:11)
[2022-04-17] MEDS ORDERED: HOME MED LIST COMPLETE! XX SCH (00:15)
[2022-04-17 01:45] VITALS: BP 104/58
[2022-04-17] MEDS: MORPHINE 2 MG/ML 1ML VIAL IV PRN (02:53)
[2022-04-17 06:00] VITALS: BP 123/68
[2022-04-17] MEDS: NORCO, ANEXSIA 5/325MG TABLET (HYDROcodone/ACETAMINOPHEN) PO PRN ×3 (06:22→22:32)
[2022-04-17] MEDS ORDERED: UNRESOLVED CLARIFICATION ENTRY XX SCH (08:00)
[2022-04-17 10:00] VITALS: BP 121/68
[2022-04-17] MEDS: SERTRALINE 100 MG TAB PO SCH (10:26)
[2022-04-17] MEDS: LEVOTHYROXINE 88MCG TABLET (0.088 MG) PO SCH (11:20)
[2022-04-17 14:00] VITALS: BP 120/66
[2022-04-17 18:00] VITALS: BP 119/66
[2022-04-17 20:00] VITALS: BP 135/64
[2022-04-17] MEDS: BACITRACIN OINTMENT 30GM TUBE TOP SCH (22:15)
[2022-04-18] MEDS ORDERED: UNRESOLVED CLARIFICATION ENTRY XX SCH (00:01)
[2022-04-18 02:00] VITALS: BP 133/65
[2022-04-18] MEDS: MORPHINE 2 MG/ML 1ML VIAL IV PRN ×2 (02:02→04:58)
[2022-04-18 06:00] VITALS: BP 156/82
[2022-04-18] MEDS: LEVOTHYROXINE 88MCG TABLET (0.088 MG) PO SCH (06:09)
[2022-04-18] MEDS: SERTRALINE 100 MG TAB PO SCH (08:07)
[2022-04-18] MEDS: NORCO, ANEXSIA 5/325MG TABLET (HYDROcodone/ACETAMINOPHEN) PO PRN ×3 (08:07→19:16)
[2022-04-18] MEDS: BACITRACIN OINTMENT 30GM TUBE TOP SCH ×2 (08:07→20:11)
[2022-04-18 10:00] VITALS: BP 140/64
[2022-04-18 14:00] VITALS: BP 139/68
[2022-04-18 18:00] VITALS: BP 138/69
[2022-04-18 20:00] VITALS: BP 137/65
[2022-04-19 02:00] VITALS: BP 143/72
[2022-04-19] MEDS: MORPHINE 2 MG/ML 1ML VIAL IV PRN (02:16)
[2022-04-19 05:42] VITALS: BP 145/72
[2022-04-19] MEDS: LEVOTHYROXINE 88MCG TABLET (0.088 MG) PO SCH (05:57)
[2022-04-19] MEDS: NORCO, ANEXSIA 5/325MG TABLET (HYDROcodone/ACETAMINOPHEN) PO PRN ×2 (05:58→11:39)
[2022-04-19] MEDS: SERTRALINE 100 MG TAB PO SCH (08:02)
[2022-04-19] MEDS: BACITRACIN OINTMENT 30GM TUBE TOP SCH (08:03)
[2022-04-19] MEDS ORDERED: HYDR-3715 PO (09:04)
[2022-04-19 10:00] VITALS: BP 128/70
== END 2022-04-19 12:24 | disposition home or self-care (01) | DRG 185 ==
LOC: M ED 17:51 → M ED INP 22:38 → ENRESERV 04-17 00:51 → M MSPAV 04-17 01:43
PROVIDERS: ADMIT Surgery; ATTEND Surgery
DX: S22.42XA Multiple fractures of ribs, left side, initial encounter for closed fracture (principal); W10.8XXA Fall (on) (from) other stairs and steps, initial encounter; Y92.9 Unspecified place or not applicable; Z88.2 Allergy status to sulfonamides; Z88.1 Allergy status to other antibiotic agents; Z88.8 Allergy status to other drugs, medicaments and biological substances; Z79.899 Other long term (current) drug therapy; K21.9 Gastro-esophageal reflux disease without esophagitis; E11.9 Type 2 diabetes mellitus without complications; E03.9 Hypothyroidism, unspecified; M19.90 Unspecified osteoarthritis, unspecified site; Z96.651 Presence of right artificial knee joint; Z90.79 Acquired absence of other genital organ(s); Z90.49 Acquired absence of other specified parts of digestive tract; F32.A Depression, unspecified

== ENCOUNTER → 2022-05-09 | Outpatient (CLI) | payer MEDICARE ==
[~2022-05-09] MED LIST changes: +ALBU8.5H INH; +CRAN400C PO; +D200CAP3 PO; +ESTR62CR PV; +HYDR-3715 PO; +REFR0.5D8 OU; +SYNT88TA2 PO; +VITMTA PO; +ZOLO100T PO
== END ==
LOC: M WUC 08:50
PROVIDERS: ATTEND Physician Assistant
DX: S22.42XD Multiple fractures of ribs, left side, subsequent encounter for fracture with routine healing (principal); M19.012 Primary osteoarthritis, left shoulder

== ENCOUNTER → 2022-06-21 | Outpatient (CLI) | payer MEDICARE | LOC: M WHC 14:11 | PROVIDERS: ATTEND Family Medicine | DX: Z12.31 Encounter for screening mammogram for malignant neoplasm of breast (principal); M85.851 Other specified disorders of bone density and structure, right thigh; M85.852 Other specified disorders of bone density and structure, left thigh ==

== ENCOUNTER → 2023-02-15 | Outpatient (CLI) | payer MEDICARE ==
[2023-02-15 11:40] LABS: RHEUMATOID FACTOR QUANT < 3.5 IU/ML (<14)
== END ==
LOC: M WUC 08:14
PROVIDERS: ATTEND Physician Assistant
DX: S52.514D Nondisplaced fracture of right radial styloid process, subsequent encounter for closed fracture with routine healing (principal)

== ENCOUNTER → 2023-04-01 | Outpatient (REF) | payer MEDICARE | LOC: M LAB REF 12:15 | PROVIDERS: ATTEND Family Medicine | DX: M19.90 Unspecified osteoarthritis, unspecified site (principal) ==

== ENCOUNTER → 2023-06-27 | Outpatient (CLI) | payer MEDICARE | LOC: M WHC 12:24 | PROVIDERS: ATTEND Family Medicine | DX: Z12.31 Encounter for screening mammogram for malignant neoplasm of breast (principal) ==

== ENCOUNTER → 2023-07-03 | Outpatient (CLI) | payer MEDICARE | LOC: M WUC 12:43 | PROVIDERS: ATTEND Nurse Practitioner Family | DX: R07.82 Intercostal pain (principal); Z87.81 Personal history of (healed) traumatic fracture ==

== ENCOUNTER → 2023-07-29 | Outpatient (REF) | payer MEDICARE | LOC: M LAB REF 11:44 | PROVIDERS: ATTEND Family Medicine | DX: M19.90 Unspecified osteoarthritis, unspecified site (principal) ==

== ENCOUNTER → 2023-12-23 | Outpatient (CLI) | payer MEDICARE | LOC: M SOG 07:54 | PROVIDERS: ATTEND Physician Assistant | DX: M25.571 Pain in right ankle and joints of right foot (principal); Z87.81 Personal history of (healed) traumatic fracture ==

== ENCOUNTER → 2024-01-13 | Outpatient (CLI) | payer MEDICARE ==
[~2024-01-13] MED LIST changes: +ISOVUE-300 61% 100ML VIAL As Ordered ONE; +LIDOCAINE 1% MDV 20ML VIAL As Ordered ONE; +TRIAMCINOLONE ACETONIDE SUSP 40MG/ML 1ML VIAL As Ordered ONE
== END ==
LOC: M RAD 10:03
PROVIDERS: ATTEND Orthopaedic Surgery
DX: M16.12 Unilateral primary osteoarthritis, left hip (principal)
CPT/HCPCS: 20610; 77002; J3301; Q9967

== ENCOUNTER → 2024-07-03 | Outpatient (CLI) | payer MEDICARE ==
[~2024-07-03] MED LIST changes: +BUPR-597 PO; -BUPR300T92 PO; -CRAN400C PO; +CRANBERRY400 MG PO; +DOXY-323; -DOXY-443; -ISOVUE-300 61% 100ML VIAL As Ordered ONE; -LIDOCAINE 1% MDV 20ML VIAL As Ordered ONE; -TRIAMCINOLONE ACETONIDE SUSP 40MG/ML 1ML VIAL As Ordered ONE
== END ==
LOC: M WHC 10:38
PROVIDERS: ATTEND Family Medicine
DX: Z12.31 Encounter for screening mammogram for malignant neoplasm of breast (principal); Z13.820 Encounter for screening for osteoporosis; M85.89 Other specified disorders of bone density and structure, multiple sites; R92.313 Mammographic fatty tissue density, bilateral breasts

== ENCOUNTER → 2024-08-04 | Outpatient (REF) | payer MEDICARE | LOC: M LAB REF 13:14 | PROVIDERS: ATTEND Family Medicine | DX: Z11.59 Encounter for screening for other viral diseases (principal) ==

== ENCOUNTER → 2024-08-05 | Outpatient (REF) | payer MEDICARE ==
[2024-08-05 18:57] LABS: IRON (FE) 95 UG/DL (50-170)
[2024-08-05 18:59] LABS: PERCENT SATURATION 34.2 % (13.2-45.0); TOTAL IRON BINDING CAPACITY 278 UG/DL (250-425)
[2024-08-05 19:02] LABS: FOLATE > 24.0 NG/ML (>5.4)
[2024-08-05 19:03] LABS: VITAMIN B12 LEVEL 555 PG/ML (211-911)
== END ==
LOC: M LAB REF 16:19
PROVIDERS: ATTEND Family Medicine
DX: R71.8 Other abnormality of red blood cells (principal)

== ENCOUNTER → 2025-07-09 | Outpatient (CLI) | payer MEDICARE ==
[~2025-07-09] MED LIST changes: -BUPR-597 PO; +BUPR-766 PO; -DOXY-323; +DOXY-441; +MORP-138 PO; -MORP15TASA PO
== END ==
LOC: M WHC 09:31
PROVIDERS: ATTEND Family Medicine
DX: Z12.31 Encounter for screening mammogram for malignant neoplasm of breast (principal); R92.323 Mammographic fibroglandular density, bilateral breasts; Z80.3 Family history of malignant neoplasm of breast

== ENCOUNTER 2025-08-10 12:20 | Inpatient (IN) | payer MEDICARE ==
[~2025-08-10] VITALS: Ht 162.6 cm; Wt 80.3 kg
[~2025-08-10 12:20] MED LIST changes: +CRAN500T4 PO; -HM C500T4 PO
[2025-08-10] MEDS ORDERED: METH2.5T48 PO (12:39)
[2025-08-10] MEDS ORDERED: ETAN50PE INJ (12:39)
[2025-08-10] MEDS ORDERED: FOLI1TAB11 PO (12:39)
[2025-08-10 12:52] LABS: BASO # 0.1 10^3/uL (0.0-0.2); BASO % 0.7 % (0.0-1.0); EOS # 0.1 10^3/uL (0.0-0.5); EOS % 1.0 % (0.0-3.0); LYMPH # 1.0 10^3/uL (1.5-5.0); LYMPH % 13.4 % (24.0-44.0); MONO # 0.7 10^3/uL (0.0-0.8); MONO % 9.0 % (2.0-8.0); NEUTROPHILS # 5.8 10^3/uL (1.5-8.5); NEUTROPHILS % 75.6 % (36.0-66.0); PLATELET COUNT, AUTOMATED 266 10^3/uL (150-450)
[2025-08-10 13:15] LABS: ALT/SGPT 26 U/L (7.0-40); AST/SGOT 24 U/L (<34); CALCIUM LEVEL 8.7 MG/DL (8.3-10.6); CARBON DIOXIDE LEVEL 29 MMOL/L (20-31); CHLORIDE LEVEL 104 MMOL/L (98-107); CREATININE FOR GFR 0.87 MG/DL (0.55-1.30); GLOMERULAR FILTRATION RATE 69.9 (>39); POTASSIUM SERUM 3.8 MMOL/L (3.5-5.1); SODIUM LEVEL 140 MMOL/L (136-145)
[2025-08-10 13:20] LABS: FREE T4 1.22 NG/DL (0.89-1.76)
[2025-08-10] MEDS ORDERED: ISOVUE-370 76% 100 ML VIAL As Ordered ONE (13:39)
[2025-08-10] MEDS: dilTIAZem 25 MG/5 ML VIAL IV ONE (13:40)
[2025-08-10 14:04] LABS: INR 1.05
[2025-08-10 14:23] LABS: CK-MB VALUE MASS < 1.0 NG/ML (<3.6)
[2025-08-10 14:28] LABS: CPK CREATINE PHOSPHOKINASE 30 U/L (34-145)
[2025-08-10] MEDS: ACETAMINOPHEN *IV* 1,000 MG in IV 1 EA IV ONE (15:27)
[2025-08-10 15:38] LABS: CK-MB VALUE MASS < 1.0 NG/ML (<3.6); CPK CREATINE PHOSPHOKINASE 27 U/L (34-145)
[2025-08-10] MEDS: PANTOPRAZOLE 40MG VIAL IV ONE (16:11)
[2025-08-10 17:41] LABS: ERYTHROCYTE SEDIMENTATION RATE 78 mm/hr (0-30)
[2025-08-10 17:57] LABS: C REACTIVE PROTEIN QUANTITATIV 12.77 MG/DL (<1.0)
[2025-08-10] MEDS ORDERED: ONDANSETRON 4MG 2ML VIAL IV PRN (19:55)
[2025-08-10] MEDS ORDERED: ACETAMINOPHEN 325 MG TAB PO PRN (19:55)
[2025-08-10] MEDS ORDERED: BISACODYL 10 MG SUPP PR PRN (19:55)
[2025-08-10] MEDS: DOCUSATE SODIUM 100 MG CAPSULE PO SCH (20:28)
[2025-08-10] MEDS: KCL 20MEQ IN D5/NS 1000ML 1,000 ML IV SCH (20:28)
[2025-08-10] MEDS: KETOROLAC 30 MG/ML 1 ML VIAL IV SCH (20:28)
[2025-08-10] MEDS ORDERED: CRAN400T3 PO (20:35)
[2025-08-10] MEDS ORDERED: MULT-40 PO (20:35)
[2025-08-10] MEDS ORDERED: HOME MED LIST COMPLETE! XX SCH (20:40)
[2025-08-10] MEDS: METOPROLOL TART 12.5 MG PER 1/2 TAB PO SCH (21:53)
[2025-08-10] MEDS: COLCHICINE 0.6 MG TABLET PO SCH (21:54)
[2025-08-11] VITALS (13 sets, daily range): BP systolic 92–143; BP diastolic 46–69; PULSE 65; TEMP 97–98.3; O2SAT 94–100
[2025-08-11] MEDS: KETOROLAC 30 MG/ML 1 ML VIAL IV SCH (03:50)
[2025-08-11 05:34] LABS: BASO # 0.0 10^3/uL (0.0-0.2); BASO % 0.5 % (0.0-1.0); EOS # 0.4 10^3/uL (0.0-0.5); EOS % 4.3 % (0.0-3.0); LYMPH # 1.3 10^3/uL (1.5-5.0); LYMPH % 15.2 % (24.0-44.0); MONO # 0.8 10^3/uL (0.0-0.8); MONO % 9.9 % (2.0-8.0); NEUTROPHILS # 5.7 10^3/uL (1.5-8.5); NEUTROPHILS % 69.7 % (36.0-66.0); PLATELET COUNT, AUTOMATED 242 10^3/uL (150-450)
[2025-08-11 05:57] LABS: CALCIUM LEVEL 8.2 MG/DL (8.3-10.6); CARBON DIOXIDE LEVEL 28.0 MMOL/L (20-31); CHLORIDE LEVEL 107.0 MMOL/L (98-107); CREATININE FOR GFR 0.94 MG/DL (0.55-1.30); GLOMERULAR FILTRATION RATE 63.7 (>39); MAGNESIUM LEVEL 2.1 MG/DL (1.8-2.4); POTASSIUM SERUM 4.6 MMOL/L (3.5-5.1); SODIUM LEVEL 139.0 MMOL/L (136-145)
[2025-08-11] MEDS: PANTOPRAZOLE 40MG TAB PO SCH (08:16)
[2025-08-11] MEDS: ENOXAPARIN 40 MG/0.4 ML SYRINGE (J1650 PER 10MG) SC SCH (08:17)
[2025-08-11] MEDS: MOM 30 ML SUSPENSION UDC PO SCH (09:00)
[2025-08-11] MEDS: LEVOTHYROXINE 88 MCG TABLET (0.088 MG) PO SCH (14:21)
[2025-08-11] MEDS: FOLIC ACID 1 MG TAB PO SCH (15:07)
[2025-08-11] MEDS: buPROPion **XL** 150 MG TABLET PO SCH (15:07)
[2025-08-11] MEDS: SERTRALINE 100 MG TAB PO SCH (15:07)
[2025-08-11] MEDS: ASCORBIC ACID 500 MG TAB PO SCH (20:59)
[2025-08-11] MEDS: APIXABAN 5 MG TAB PO SCH (21:00)
[2025-08-12] MEDS: KETOROLAC 30 MG/ML 1 ML VIAL IV SCH (02:12)
[2025-08-12 04:38] VITALS: BP 122/57; TEMP 98.3; O2SAT 95
[2025-08-12 05:28] LABS: BASO # 0.0 10^3/uL (0.0-0.2); BASO % 0.5 % (0.0-1.0); EOS # 0.5 10^3/uL (0.0-0.5); EOS % 5.8 % (0.0-3.0); LYMPH # 1.1 10^3/uL (1.5-5.0); LYMPH % 14.3 % (24.0-44.0); MONO # 0.8 10^3/uL (0.0-0.8); MONO % 10.2 % (2.0-8.0); NEUTROPHILS # 5.5 10^3/uL (1.5-8.5); NEUTROPHILS % 68.8 % (36.0-66.0); PLATELET COUNT, AUTOMATED 262 10^3/uL (150-450)
[2025-08-12 05:53] LABS: CALCIUM LEVEL 8.1 MG/DL (8.3-10.6); CARBON DIOXIDE LEVEL 27.0 MMOL/L (20-31); CHLORIDE LEVEL 108.0 MMOL/L (98-107); CREATININE FOR GFR 0.85 MG/DL (0.55-1.30); GLOMERULAR FILTRATION RATE 71.9 (>39); POTASSIUM SERUM 5.1 MMOL/L (3.5-5.1); SODIUM LEVEL 141.0 MMOL/L (136-145)
[2025-08-12 07:01] VITALS: BP 118/59; TEMP 97.2; O2SAT 96
[2025-08-12 09:22] VITALS: BP 114/60
[2025-08-12 09:23] VITALS: BP 114/60
[2025-08-12] MEDS: METOPROLOL TART 12.5 MG PER 1/2 TAB PO SCH (09:23)
[2025-08-12] MEDS ORDERED: PANT40TA29 PO (11:14)
[2025-08-12] MEDS ORDERED: COLC0.6T53 PO (11:14)
[2025-08-12] MEDS ORDERED: ELIQ5TAB PO (11:14)
[2025-08-12] MEDS ORDERED: CARA1TAB6 PO (11:14)
[2025-08-12] MEDS ORDERED: IBUP-1114 PO (11:14)
[2025-08-12] MEDS ORDERED: DELUMIS2 XX (11:23)
[2025-08-12] MEDS ORDERED: METO25TA4 PO (11:23)
[2025-08-12] MEDS ORDERED: TALK1KIT MC (11:23)
[2025-08-12] MEDS ORDERED: NAPR220C14 PO (11:41)
[2025-08-12 12:07] VITALS: BP 125/61; TEMP 97.9; O2SAT 99
[2025-08-12] MEDS: FLUZONE HIGH DOSE TRI (25-26) 0.5 ML SYRINGE IM.IMMUN ONE (13:45)
[2025-08-13] MEDS ORDERED: ESTROGENS VAGINAL CREAM 30 GM PV SCH (09:00)
[2025-08-15] MEDS ORDERED: METHOTREXATE 2.5 MG TAB PO SCH (09:00)
== END 2025-08-12 15:29 | disposition home or self-care (01) | DRG 309 ==
LOC: M ED 12:20 → EDBD 12:20 → M ED INP 19:14 → M ICU 08-11 03:53 → M PCU 08-11 17:36
PROVIDERS: ADMIT Internal Medicine Pulmonary Disease; ATTEND General Practice
PROC: B246ZZZ Ultrasonography of Right and Left Heart (ICD-10-PCS; principal; 2025-08-10)
DX: I48.91 Unspecified atrial fibrillation (principal); I31.39 Other pericardial effusion (noninflammatory); M06.9 Rheumatoid arthritis, unspecified; F41.9 Anxiety disorder, unspecified; F32.A Depression, unspecified; K21.9 Gastro-esophageal reflux disease without esophagitis; E03.9 Hypothyroidism, unspecified; R55 Syncope and collapse; D64.9 Anemia, unspecified; Z79.890 Hormone replacement therapy; Z79.899 Other long term (current) drug therapy; Z88.2 Allergy status to sulfonamides; Z88.8 Allergy status to other drugs, medicaments and biological substances; Z96.652 Presence of left artificial knee joint; Z90.79 Acquired absence of other genital organ(s); Z98.41 Cataract extraction status, right eye; Z98.42 Cataract extraction status, left eye

== ENCOUNTER 2025-08-14 23:29 | Emergency (ER) | payer MEDICARE ==
[~2025-08-14] VITALS: Ht 162.6 cm; Wt 77.3 kg
[~2025-08-14 23:29] MED LIST changes: +CARA1TAB6 PO; +COLC0.6T53 PO; +CRAN400T3 PO; +DELUMIS2 XX; +ELIQ5TAB PO; +ETAN50PE INJ; +FOLI1TAB11 PO; +IBUP-1114 PO; +METH2.5T48 PO; +METO25TA4 PO; +MULT-40 PO; +NAPR220C14 PO; +TALK1KIT MC
[2025-08-14 23:48] VITALS: TEMP 98.6
[2025-08-15 00:24] LABS: BASO # 0.1 10^3/uL (0.0-0.2); BASO % 1.0 % (0.0-1.0); EOS # 0.9 10^3/uL (0.0-0.5); EOS % 10.3 % (0.0-3.0); LYMPH # 2.2 10^3/uL (1.5-5.0); LYMPH % 24.4 % (24.0-44.0); MONO # 0.8 10^3/uL (0.0-0.8); MONO % 9.4 % (2.0-8.0); NEUTROPHILS # 4.9 10^3/uL (1.5-8.5); NEUTROPHILS % 54.3 % (36.0-66.0); PLATELET COUNT, AUTOMATED 301 10^3/uL (150-450)
[2025-08-15 00:37] LABS: INR 1.13
[2025-08-15 00:48] LABS: CK-MB VALUE MASS < 1.0 NG/ML (<3.6)
[2025-08-15 00:49] LABS: CPK CREATINE PHOSPHOKINASE 31 U/L (34-145)
[2025-08-15 00:50] LABS: CALCIUM LEVEL 8.2 MG/DL (8.3-10.6); CARBON DIOXIDE LEVEL 27 MMOL/L (20-31); CHLORIDE LEVEL 107 MMOL/L (98-107); CREATININE FOR GFR 0.83 MG/DL (0.55-1.30); GLOMERULAR FILTRATION RATE 73.9 (>39); POTASSIUM SERUM 4.1 MMOL/L (3.5-5.1); SODIUM LEVEL 140 MMOL/L (136-145)
[2025-08-15 00:53] LABS: ERYTHROCYTE SEDIMENTATION RATE 93 mm/hr (0-30)
[2025-08-15] MEDS: METOPROLOL TART 25 MG TABLET PO ONE (00:59)
[2025-08-15] MEDS: METOPROLOL 5 MG/5 ML VIAL IV PRN ×2 (00:59→02:23)
[2025-08-15] MEDS ORDERED: ISOVUE-370 76% 100 ML VIAL As Ordered ONE (01:04)
[2025-08-15 01:24] LABS: C REACTIVE PROTEIN QUANTITATIV 11.42 MG/DL (<1.0)
[2025-08-15 02:53] VITALS: BP 153/101
[2025-08-15 03:43] LABS: CK-MB VALUE MASS < 1.0 NG/ML (<3.6)
[2025-08-15 03:45] LABS: CPK CREATINE PHOSPHOKINASE 27 U/L (34-145)
[2025-08-15] MEDS: NS (Normal Saline) 0.9% 1,000 ML IV ONE (04:30)
[2025-08-15 10:00] VITALS: BP 123/68; O2SAT 96
[2025-08-15] MEDS ORDERED: ELIQ5TAB PO (10:50)
[2025-08-15] MEDS ORDERED: SYST1SOL2 OU (10:53)
[2025-08-15] MEDS ORDERED: COLC0.6T53 PO (10:55)
[2025-08-15] MEDS ORDERED: METO1TAB87 PO (10:59)
[2025-08-15] MEDS ORDERED: ALEV220T22 PO (11:02)
[2025-08-15] MEDS ORDERED: PANT40TA29 PO (11:03)
[2025-08-15] MEDS ORDERED: SUCR1TAB56 PO (11:06)
[2025-08-15] MEDS ORDERED: VITA100065 PO (11:08)
[2025-08-15] MEDS ORDERED: OCUVTAB4 PO (11:10)
[2025-08-15] MEDS ORDERED: EXCETAB32 PO (11:11)
[2025-08-15] MEDS ORDERED: HOME MED LIST COMPLETE! XX SCH (11:15)
== END 2025-08-15 10:29 | disposition home or self-care (01) ==
LOC: M ED 23:29
DX: I48.91 Unspecified atrial fibrillation (principal); E03.9 Hypothyroidism, unspecified; K21.9 Gastro-esophageal reflux disease without esophagitis; M06.9 Rheumatoid arthritis, unspecified; Z79.01 Long term (current) use of anticoagulants; F41.9 Anxiety disorder, unspecified; F32.A Depression, unspecified; Z79.899 Other long term (current) drug therapy; Z88.2 Allergy status to sulfonamides; Z88.8 Allergy status to other drugs, medicaments and biological substances
CPT/HCPCS: 71045; 71275; 80048; 82550; 82553; 84484; 85025; 85610; 85652; 85730; 86140; 93005; 93041; 93306; 94760; 96361; 96374; 96375; 96376; 99285; J0616; Q9967

== ENCOUNTER → 2025-09-23 | Outpatient (REF) | payer MEDICARE ==
[~2025-09-23] MED LIST changes: +ALEV220T22 PO; +EXCETAB32 PO; +METO1TAB87 PO; +OCUVTAB4 PO; +SUCR1TAB56 PO; +SYST1SOL2 OU; +VITA100065 PO
== END ==
LOC: M LAB REF 14:21
PROVIDERS: ATTEND Family Medicine
DX: M06.00 Rheumatoid arthritis without rheumatoid factor, unspecified site (principal)

== ENCOUNTER → 2025-10-22 | Outpatient (CLI) | payer MEDICARE | LOC: M PLAIMG 14:40 | PROVIDERS: ATTEND Nurse Practitioner Family | DX: I30.9 Acute pericarditis, unspecified (principal) ==